=== PATIENT | male | born 1940 | race Caucasian/White ===

== ENCOUNTER → 2024-04-22 | Outpatient (CLI) | payer MEDICARE, SELFPAY ==
[2024-04-22 08:47] LABS: Basophils % (Auto) 1 % (0-2.5); Eosinophils % (Auto) 0 % (0-10); Hematocrit 24.7 % (41.0-53.0); Immature Granulocytes % (Auto) 0 % (0-0); Lymphocytes # (Auto) 1.1 Thou/mm3 (1.0-4.8); Lymphocytes % (Auto) 51 % (10-50); Mean Corpuscular HGB Conc 31.6 g/dl (31.0-37.0); Mean Corpuscular Hemoglobin 33.5 pg (25.0-35.0); Mean Corpuscular Volume 106 fL (80-100); Monocytes # (Auto) 0.4 Thou/mm3 (0.0-0.8); Monocytes % (Auto) 18 % (0-12); Neutrophils # (Auto) 0.7 Thou/mm3 (1.8-7.7); Neutrophils % (Auto) 30 % (37-80); Nucleated Red Blood Cell % 0 /100 WBC (0); Platelet Count 209 Thou/mm3 (140-440); RDW Standard Deviation 89.6 fL (35.1-43.9); Red Blood Count 2.33 Miln/mm3 (4.50-5.90)
[2024-04-22 08:58] LABS: Hemoglobin 7.8 g/dL (13.5-16.0); White Blood Count 2.2 Thou/mm3 (3.8-10.6)
[2024-04-22 09:29] LABS: Albumin, Serum 4.2 gm/dL (3.4-4.8); Anion Gap 6 (7-16); BUN/Creatinine Ratio 15 Ratio (12-20); Blood Urea Nitrogen 27 mg/dL (9-23); Calcium 9.5 mg/dL (8.3-10.6); Calcium (Corrected) 9.5 mg/dL (8.5-10.1); Carbon Dioxide 22.7 mMol/L (20.0-31.0); Chloride 105 mMol/L (98-107); Creatinine (Component) 1.8 mg/dL (0.6-1.3); Glucose 62 mg/dL (74-106); Osmolality,Calculated 271 (275-295); Phosphorous 3.6 mg/dL (2.4-5.1); Potassium 4.9 mMol/L (3.4-5.1); Sodium 134 mMol/L (136-145); eGFR 37 See Note
== END | disposition home or self-care (01) ==
LOC: COPL 07:20
PROVIDERS: PCP Family Medicine; Referring Provider Family Medicine; Visit Provider Family Medicine
DX: D64.9 Anemia, unspecified (principal)
CPT/HCPCS: 36415; 80069; 85025

== ENCOUNTER → 2024-06-08 | Outpatient (CLI) | payer MEDICARE, SELFPAY ==
[2024-06-08 07:44] LABS: Flow Cytometry* See Sep Rpt
[2024-06-08 08:50] LABS: Basophils % (Auto) 1 % (0-2.5); Eosinophils % (Auto) 0 % (0-10); Hematocrit 22.7 % (41.0-53.0); Immature Granulocytes % (Auto) 3 % (0-0); Immature Granulocytes Auto 0.06 Thou/mm3 (0.00-0.00); Lymphocytes # (Auto) 0.9 Thou/mm3 (1.0-4.8); Lymphocytes % (Auto) 40 % (10-50); Mean Corpuscular HGB Conc 31.7 g/dl (31.0-37.0); Mean Corpuscular Hemoglobin 33.6 pg (25.0-35.0); Mean Corpuscular Volume 106 fL (80-100); Monocytes # (Auto) 0.5 Thou/mm3 (0.0-0.8); Monocytes % (Auto) 25 % (0-12); Neutrophils # (Auto) 0.7 Thou/mm3 (1.8-7.7); Neutrophils % (Auto) 31 % (37-80); Nucleated Red Blood Cell # 0.03 Thou/mm3 (0.00-0.00); Nucleated Red Blood Cell % 1 /100 WBC (0); Platelet Count 164 Thou/mm3 (140-440); RDW Standard Deviation 82.1 fL (35.1-43.9); Red Blood Count 2.14 Miln/mm3 (4.50-5.90)
[2024-06-08 09:13] LABS: Hemoglobin 7.2 g/dL (13.5-16.0); White Blood Count 2.1 Thou/mm3 (3.8-10.6)
[2024-06-08 10:02] LABS: Path Review Blood Smear Sent to Pathologist
== END | disposition home or self-care (01) ==
LOC: COPL 07:22
PROVIDERS: PCP Family Medicine; Referring Provider Family Medicine; Visit Provider Specialist
DX: D46.9 Myelodysplastic syndrome, unspecified (principal)
CPT/HCPCS: 36415; 85025

== ENCOUNTER → 2024-07-06 | Outpatient (CLI) | payer MEDICARE, SELFPAY ==
[2024-07-06 08:58] LABS: Alanine Aminotransferase 13 U/L (10-49); Albumin, Serum 4.1 gm/dL (3.4-4.8); Alkaline Phosphatase 101 U/L (46-116); Anion Gap 8 (7-16); Aspartate Amino Transferase 22 U/L (0-34); BUN/Creatinine Ratio 20 Ratio (12-20); Bilirubin,Total 0.8 mg/dL (0.3-1.2); Blood Urea Nitrogen 43 mg/dL (9-23); Calcium 9.3 mg/dL (8.3-10.6); Calcium (Corrected) 9.3 mg/dL (8.5-10.1); Carbon Dioxide 21.2 mMol/L (20.0-31.0); Chloride 108 mMol/L (98-107); Creatinine (Component) 2.2 mg/dL (0.6-1.3); Globulin 4.3 gm/dL (2.3-3.5); Glucose 80 mg/dL (74-106); Osmolality,Calculated 283 (275-295); Potassium 5.2 mMol/L (3.4-5.1); Sodium 137 mMol/L (136-145); Total Protein 8.4 gm/dL (5.7-8.2); eGFR 29 See Note
[2024-07-06 13:16] LABS: Basophils % (Auto) 1 % (0-2.5); Eosinophils % (Auto) 0 % (0-10); Hematocrit 25.9 % (41.0-53.0); Immature Granulocytes % (Auto) 2 % (0-0); Immature Granulocytes Auto 0.04 Thou/mm3 (0.00-0.00); Lymphocytes % (Auto) 36 % (10-50); Mean Corpuscular HGB Conc 31.7 g/dl (31.0-37.0); Mean Corpuscular Hemoglobin 33.1 pg (25.0-35.0); Mean Corpuscular Volume 104 fL (80-100); Monocytes # (Auto) 0.6 Thou/mm3 (0.0-0.8); Monocytes % (Auto) 24 % (0-12); Neutrophils % (Auto) 37 % (37-80); Nucleated Red Blood Cell # 0.03 Thou/mm3 (0.00-0.00); Nucleated Red Blood Cell % 1 /100 WBC (0); RDW Standard Deviation 83.9 fL (35.1-43.9); Red Blood Count 2.48 Miln/mm3 (4.50-5.90)
[2024-07-06 14:22] LABS: Platelet Count 153 Thou/mm3 (140-440)
[2024-07-06 14:25] LABS: White Blood Count 2.6 Thou/mm3 (3.8-10.6)
[2024-07-06 15:18] LABS: Hemoglobin 8.2 g/dL (13.5-16.0)
[2024-07-06 17:56] LABS: Lymphocytes # (Auto) 0.9 Thou/mm3 (1.0-4.8)
== END | disposition home or self-care (01) ==
LOC: COPL 07:20
PROVIDERS: PCP Family Medicine; Referring Provider Family Medicine; Visit Provider Family Medicine
DX: N18.31 Chronic kidney disease, stage 3a (principal); D63.1 Anemia in chronic kidney disease
CPT/HCPCS: 36415; 80053; 85025

== ENCOUNTER 2024-07-12 07:30 | Emergency (ER) | payer MEDICARE, SELFPAY ==
[2024-07-12 07:31] VITALS: BMI 19.0
[2024-07-12 07:45] VITALS: BP 109/52; PULSE 84; RESP 20; TEMP 36.7; O2SAT 95
--- NOTE | 2024-07-12 07:56 | XR_ITS ---
Examination: PA lateral chest 2 views Technique: Upright PA lateral chest 2 views Exam date and time: July 12, 2024 0800 hrs. Comparison 02/14/2024 Indications: Chest pain today Findings: Fairly diffuse right lung pneumonia Moderate right pleural effusion Normal heart size Moderate hyperexpansion Impression: Early diffuse right lung pneumonia
--- NOTE | 2024-07-12 07:56 | PD.EDRME ---
Rapid Medical Screening Exam RME Arrival date/time: 07/12/24 07:30 83-year-old male presents emergency department today complains of shortness of breath Chief Complaint: Shortness of Breath/Dyspnea Vital signs: Vital Signs Temperature 98.0 F 07/12/24 07:45 Pulse Rate 84 07/12/24 07:45 Respiratory Rate 20 07/12/24 07:45 Blood Pressure 109/52 L 07/12/24 07:45 Pulse Oximetry (%) 95 07/12/24 07:45 Oxygen Delivery Method Room Air 07/12/24 07:45
[2024-07-12 08:42] LABS: Basophils % (Auto) 1 % (0-2.5); Eosinophils % (Auto) 0 % (0-10); Hematocrit 23.8 % (41.0-53.0); Immature Granulocytes % (Auto) 4 % (0-0); Immature Granulocytes Auto 0.09 Thou/mm3 (0.00-0.00); Lymphocytes # (Auto) 0.7 Thou/mm3 (1.0-4.8); Lymphocytes % (Auto) 28 % (10-50); Mean Corpuscular HGB Conc 33.2 g/dl (31.0-37.0); Mean Corpuscular Hemoglobin 33.8 pg (25.0-35.0); Mean Corpuscular Volume 102 fL (80-100); Monocytes # (Auto) 0.8 Thou/mm3 (0.0-0.8); Monocytes % (Auto) 30 % (0-12); Neutrophils # (Auto) 0.9 Thou/mm3 (1.8-7.7); Neutrophils % (Auto) 37 % (37-80); Nucleated Red Blood Cell # 0.03 Thou/mm3 (0.00-0.00); Nucleated Red Blood Cell % 1 /100 WBC (0); Platelet Count 131 Thou/mm3 (140-440); RDW Standard Deviation 84.5 fL (35.1-43.9); Red Blood Count 2.34 Miln/mm3 (4.50-5.90)
[2024-07-12 08:44] LABS: Hemoglobin 7.9 g/dL (13.5-16.0); White Blood Count 2.5 Thou/mm3 (3.8-10.6)
[2024-07-12 09:03] LABS: B-Type Natriuretic Peptide 180 pg/mL (0-100)
[2024-07-12 10:24] LABS: Alanine Aminotransferase 14 U/L (10-49); Albumin, Serum 3.9 gm/dL (3.4-4.8); Albumin/Globulin Ratio 0.8 (1.2-2.2); Alkaline Phosphatase 103 U/L (46-116); Anion Gap 9 (7-16); Aspartate Amino Transferase 18 U/L (0-34); BUN/Creatinine Ratio 18 Ratio (12-20); Bilirubin,Total 0.9 mg/dL (0.3-1.2); Blood Urea Nitrogen 35 mg/dL (9-23); Calcium 8.8 mg/dL (8.3-10.6); Calcium (Corrected) 8.9 mg/dL (8.5-10.1); Carbon Dioxide 22.2 mMol/L (20.0-31.0); Chloride 108 mMol/L (98-107); Creatinine (Component) 1.9 mg/dL (0.6-1.3); Estimated Creatinine Clearance 26.5 mL/min (>60); Globulin 4.7 gm/dL (2.3-3.5); Glucose 85 mg/dL (74-106); Osmolality,Calculated 284 (275-295); Potassium 5.3 mMol/L (3.4-5.1); Sodium 139 mMol/L (136-145); Total Protein 8.6 gm/dL (5.7-8.2); Troponin I < 0.020 ng/mL (0.0-0.045); eGFR 35 See Note
[2024-07-12 11:28] VITALS: BP 134/64; PULSE 74; RESP 16; TEMP 36.8; O2SAT 100
--- NOTE | 2024-07-12 11:51 | PD.EDSOB ---
ED SOB =RME/HPI General Chief Complaint: Shortness of Breath/Dyspnea Stated Complaint: SOB X3 DAYS Time Seen by Provider: 07/12/24 11:15 Arrival date/time: 07/12/24 07:30 This is a 83-year-old male that comes in with complaints of shortness of breath for 3 days. Patient denies fever chills. Patient denies any other symptoms. Patient denies any rash. Patient reports history of neuropathy, anemia and myelo dysplastic syndrome, coronary artery disease with a cardiac stent, and a hernia repair in the past appendectomy, neck and back surgery, and a right knee replacement. RME / HPI RME / HPI Narrative: 07/12/24 07:30 83-year-old male presents emergency department today complains of shortness of breath Related Data Home Medications ?Medication ?Instructions ?Recorded ?Confirmed pantoprazole 40 mg tablet,delayed 40 mg PO QDAY 02/07/21 02/10/24 release clopidogrel 75 mg tablet 75 mg PO QDAY 09/22/21 02/10/24 carvedilol 6.25 mg tablet 1 tab PO BID 11/08/21 02/10/24 gabapentin 400 mg capsule 400 cap PO QID 11/10/21 02/10/24 spironolactone 25 mg tablet 25 mg PO QDAY 04/15/22 02/10/24 Previous Rx's ?Medication ?Instructions ?Recorded furosemide 40 mg tablet 40 mg PO BID 30 days #60 tabs 04/16/22 amoxicillin 875 mg-potassium 1 tab PO BID #8 tabs 02/13/24 clavulanate 125 mg tablet azithromycin 250 mg tablet 250 mg PO QDAY #3 tabs 02/13/24 guaifenesin 600 mg tablet, 600 mg PO Q12H PRN cough #14 tabs 02/14/24 extended release 12 hr (Mucinex) ipratropium 0.5 mg-albuterol 3 mg 3 ml inhalation Q6H PRN shortness 02/14/24 (2.5 mg base)/3 mL nebulization of breath or wheezing #180 mL soln levofloxacin 750 mg tablet 750 mg PO QDAY #5 tabs 07/12/24 Allergies Allergy/AdvReac Type Severity Reaction Status Date / Time No Known Allergies Allergy Verified 11/07/21 15:45 Review of Systems Review of Systems Systems Reviewed: All systems reviewed, normal except as documented Past Medical History Past Medical History NEUROLOGIC: Negative Neurological Disorders, Cerebrovascular Accident, Transient Ischemic Attacks (TIA), Dementia, Alzheimer's Disease, Parkinson's Disease, Brain Tumor, Meningitis, Seizures, Epilepsy, Multiple Sclerosis, Cerebral Palsy, Amyotrophic Lateral Sclerosis (ALS/Ksenia Gehrig's), Guillain-[place] Syndrome, Spina Bifida, Paralysis, Peripheral Neuropathy, Castellano's Palsy, Subdural Hematoma, Migraine, Head Trauma, Spinal Cord Injury or Traumatic Brain Injury CARDIAC: Positive Cardiac Disorders, Congestive Heart Failure, Edema and Hypertension; Negative Myocardial Infarction, Cardiac Arrhythmia, Atrial Fibrillation, Angina, Heart Murmur, Coronary Artery Disease, Atherosclerotic Heart Disease, Peripheral Vascular Disease, Hypercholesterolemia, Aneurysm, Congenital Heart Disease, Valvular Heart Disease, Rheumatic Fever, Cardiomyopathy, Pericarditis, Cellulitis, Deep Vein Thrombosis, Hypotension or Varicose Veins RESPIRATORY: Positive Chronic Obstructive Pulmonary Disease (COPD), Asthma, Pneumonia and Smoking; Negative Bronchitis, Emphysema, Pulmonary Fibrosis, Cystic Fibrosis, Tuberculosis, Pulmonary Embolism, Pulmonary Edema or Sleep Apnea GASTROINTESTINAL: Positive Hepatitis; Negative Gastrointestinal Disorders, Cirrhosis, Pancreatitis, Celiac Disease, Gall Bladder Disease, Gastrointestinal Bleed, Esophageal Varices, Arango's Esophagus, Colitis, Ulcerative Colitis, Diverticulitis, Diverticulosis, Ulcer, Colorectal Cancer, Irritable Bowel, Crohn's Disease, Obstructive Bowel, Hiatal Hernia, Hemorrhoids, Gastroesophageal Reflux Disease or Obesity GENITOURINARY: Positive Genitourinary Disorders; Negative Renal Disease, Kidney Stones, Polycystic Kidney Disease, Neurogenic Bladder, Inguinal Hernia, Dialysis, Prostate Cancer or Benign Prostatic Hyperplasia REPRODUCTIVE: Negative Breast Cancer, Fibroids, Genital Herpes, Gonorrhea, Syphilis or Testicular Cancer MUSCULOSKELETAL: Positive Musculoskeletal Disorders and Arthritis; Negative Muscular Dystrophy, Myasthenia Gravis, Marfan's Syndrome, Bone Cancer, Rheumatoid Arthritis, Osteoporosis, Degenerative Disk Disease, Gout, Scoliosis, Carpal Tunnel Syndrome, Fibromyalgia, Fractures, Degenerative Joint Disease, Osteomyelitis or Poliovirus ENT: Positive Cataracts; Negative Glaucoma, Blind, Retinal Detachment, Macular Degeneration, Ear Infection, Deafness, Head Trauma or Eye Prosthesis ENDOCRINE: Negative Endocrine Disorders, Diabetes Mellitus Type 1, Diabetes Mellitus Type 2, Hypoglycemia, Maxwell's Syndrome, Eveleth's Disease, Hyperthyroidism, Hypothyroidism, Parathyroid Disease, Pituitary Disease, Systemic Lupus Erythematosus, Syndrome of Inappropriate Antidiuretic Hormone (SIADH), Adrenal Disease or Graves' Disease HEMATOLOGIC: Positive Blood Disorders and Anemia; Negative Leukemia, Hemophilia, Thalassemia, Sickle Cell Disease or Clotting Problems PSYCHO/SOCIAL: Negative Psychiatric Problems, Schizophrenia, Recreational Drug Use, Bipolar Disorder, Depression, Anxiety, Behavior Problems, Self-Mutilation, Attention Deficit Disorder, Attention Deficit Hyperactivity Disorder, Depression, Post Traumatic Stress Disorder or Eating Disorder OTHER HISTORY: Positive Hospitalization, Falls, Blood Transfusions, Chicken Pox, Mumps and Hepatitis C; Negative Autoimmune Disease, Down Syndrome, Autism, Developmental Delay, Shingles, Blood Transfusion Reaction, Anesthesia Reactions, Organ Transplant, Chemotherapy, Radiation Therapy, Hyperbaric Therapy, MRSA, VRSA, Vancomycin-Resistant Enterococci, Human Immunodeficiency Virus (HIV), Measles, Rubella ([place]ian Measles), Pertussis, Clostridium Difficile, Breast Cancer, Cervical Cancer, Colorectal Cancer, Lung Cancer, Prostate Cancer or Testicular Cancer Family History FAMILY HISTORY: Positive Family Cardiac Disorders and Family Gastrointestinal Problems; Negative Family Psychiatric Problems, Family Respiratory Disorders, Family Cancer, Family Surgery or Family Anesthesia Reaction Surgical History SURGICAL: Positive Eye Surgery, Tonsillectomy and Abdominal Surgery; Negative Cardiac Surgery, Open Heart Surgery, Coronary Artery Bypass Graft, Valve Replacement, Vascular Surgery, Coronary Stent, Cardiac Catheterization, Pacemaker, Angiogram, Auto Implanted Cardiovert Defib, Carotid Endarterectomy, Endocrine Surgery, Thyroidectomy, Ear Surgery, Tympanostomy Tube, Nose Surgery, Oral Surgery, Adenoidectomy, Cochlear Implant, Corneal Transplant, Throat Surgery, Tracheostomy, Gastric Bypass Surgery, Gastrostomy, Bowel Surgery, Nephrectomy, Transurethral Resection, Joint Replacement, Amputation, Open Reduction Internal Fixation, Arthroscopy, Neurologic Surgery, Brain Shunt, Mastectomy, Lumpectomy, Hysterectomy, Tubal Ligation, Section, Vasectomy or Organ Transplant Social History SMOKING STATUS: Former smoker SECOND HAND EXPOSURE: No 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 Exam General General appearance: Present alert and in no apparent distress Head Head exam: Present atraumatic Eye Eye exam: Present normal appearance, PERRL and EOMI ENT ENT exam: Present normal exam, normal oropharynx and mucous membranes moist Neck Neck exam: Present normal inspection, full ROM and trachea midline Chest Chest inspection: Present normal inspection and symmetric chest wall rise Respiratory Respiratory exam: Present normal lung sounds bilaterally Cardiovascular Cardiovascular exam: Present regular rate, normal rhythm and normal heart sounds Abdominal Exam Abdominal exam: Present soft Extremities Exam Extremities exam: Present normal inspection and full ROM Back Exam Back exam: Present normal inspection and full ROM Neurological Exam Neurological exam: Present alert, oriented X3 and CN II-XII intact Psychiatric Psychiatric exam: Present normal affect and normal mood Skin Skin exam: Present warm, dry and other (Pale skin tone) Course Quality Measures none Orders Category Date Time Status EKG (ED ONLY) *Do not use* NOW Care 07/12/24 07:36 Completed EKG (ED Only) Stat Exams 07/12/24 07:36 Ordered XR chest 2V Stat Exams 07/12/24 07:56 Completed BNP [B-Type Natriuretic Peptide] Stat Lab 07/12/24 08:13 Completed CBC Stat Lab 07/12/24 08:13 Completed Comprehensive Metabolic Panel Stat Lab 07/12/24 09:54 Completed Troponin I Stat Lab 07/12/24 09:54 Completed cefTRIAXone [Rocephin] 1,000 mg Med 07/12/24 12:26 Discontinued Lidocaine 1% 20 ml [Xylocaine 1% 20 ML] 2.1 ml IM X1 Vital Signs Vital signs: Vital Signs Temperature 98.0 F 07/12/24 07:45 Pulse Rate 84 07/12/24 07:45 Respiratory Rate 20 07/12/24 07:45 Blood Pressure 109/52 L 07/12/24 07:45 Pulse Oximetry (%) 95 07/12/24 07:45 Oxygen Delivery Method Room Air 07/12/24 07:45 Procedures -ED EKG Interpretation #1: Date of EK07/12/24 Time of EK:44 Rate: 77 Interpretation: Interpreted by me (Sinus rhythm) EKG Impression: No ectopy and Normal QRS Shortness of Breath / Dyspnea MDM Narrative MDM Narrative:: chest x ray: Findings: Fairly diffuse right lung pneumonia Moderate right pleural effusion Normal heart size Moderate hyperexpansion Impression: Early diffuse right lung pneumonia Labs reviewed. Patient's white count is 2.5, hemoglobin is 7.9 and hematocrit is 23.8. Today patient platelet count is 131. Looked at previous labs and values are not much different than previously trending. CMP reviewed sodium 139, potassium 5.3, chloride 108, BUN/creatinine are 35 and 1.9. This is not much different than what patient has currently been trending in the past. Troponin negative I spoke to patient at length about results. Patient's questions answered. i told patient to follow up with primary provider in 1-2 days. Come back to ED if symptoms change or worsen. Patient data External records reviewed:: [facility] previous records Clinical information provided by:: patient Social determinants that could affect healthcare access:: none Patient has the following chronic illnesses:: see hpi How is presenting disease/condition affected by chronic disease/condition?: uneffected by Evaluation data The following diagnostics were reviewed and interpreted by me:: lab results, radiology exam(s) and EKG tracing(s) Lab and/or radiology exams considered but not ordered:: none Interpretation Summary: see note Medications / Prescriptions Medications or Prescriptions considered but not ordered:: none Medication administrations:: Medication Administration History Discontinued Medications Ceftriaxone Sodium 1,000 mg/ (Lidocaine HCl 2.1 ml) 0 mg IM X1 ONE Stop: 07/12/24 12:27 Last Admin: 07/12/24 12:44 Dose: 100 mg Documented By: LEVAR Comments: see mar Consultations Consultation(s) initiated? (list below): No Diagnosis Shortness of Breath Differential Diagnosis: acute exacerbation of chronic obstructive airways disease, congestive heart failure, community acquired pneumonia and asthma with exacerbation Most likely diagnosis given after review of the tests above:: pneumonia Admission Indicated Admission indicated?: not indicated Admission Request Was there a request for admission?: No Disposition Plan Disposition Plan: Discharge Discharge Attestation Discharge Attestation: The patient and all family members were given an opportunity to ask questions and understood the discharge instructions. Discharge instructions specifically effects, indications for sooner follow up or return to the emergency department, and the expected course of current diagnosis. Patient condition: Stable Discharge Plan Plan Patient Disposition: HOME (Self Care) Patient condition on transfer: Stable Prescriptions/Referrals Prescriptions/Med Rec: New levofloxacin 750 mg tablet 750 mg PO QDAY Qty: 5 0RF No Action pantoprazole 40 mg Tablet,Delayed Release (Dr/Ec) 40 mg PO QDAY clopidogrel 75 mg tablet 75 mg PO QDAY Patient Comments: TAKE 1 TABLET BY MOUTH ONCE DAILY carvedilol 6.25 mg tablet 1 tab PO BID Patient Comments: TAKE 1 TABLET BY MOUTH TWICE DAILY WITH FOOD FOR HEART gabapentin 400 mg capsule 400 cap PO QID Patient Comments: TAKE 1 CAPSULE BY MOUTH 4 TIMES DAILY spironolactone 25 mg Tablet 25 mg PO QDAY furosemide 40 mg tablet 40 mg PO BID 30 Days Qty: 60 0RF amoxicillin-pot clavulanate 875-125 mg tablet 1 tab PO BID Qty: 8 0RF azithromycin 250 mg tablet 250 mg PO QDAY Qty: 3 0RF ipratropium-albuterol 0.5 mg-3 mg(2.5 mg base)/3 mL solution for nebulization 3 ml inhalation Q6H PRN (Reason: shortness of breath or wheezing) Qty: 180 0RF guaifenesin [Mucinex] 600 mg tablet extended release 12hr 600 mg PO Q12H PRN (Reason: cough) Qty: 14 0RF Referrals: No Primary/Family,Physician [Primary Care Provider] - In 1 week Problem List Clinical Impression: Pneumonia, Pancytopenia, Chronic kidney disease Patient/Caregiver Discharge Instructions Discharge Activity: activity as tolerated Education Materials: ED Pneumonia (Adult) Additional Instructions: Follow-up with primary provider in 1 to 2 days. Come back to the emergency room if symptoms change or worsen. Print Language: Guyanese Stand Alone Forms: Rani Award Info., Patient Portal Info Letter PA/CODER OPERATOR Supervising Physician PA/CODER OPERATOR Supervising Physician: esvin
[2024-07-12] MEDS: cefTRIAXone 1,000 MG, LIDOCAINE 1% 20 ML 2.1 ML IM (12:44)
[2024-07-12 13:13] VITALS: BP 140/72; PULSE 77; RESP 16; TEMP 36.7; O2SAT 98
== END 2024-07-12 13:14 | disposition home or self-care (01) ==
PROVIDERS: Nurse Practitioner Primary Care; Emergency Provider Emergency Medicine
DX: J18.9 Pneumonia, unspecified organism (principal); D61.818 Other pancytopenia; I25.10 Atherosclerotic heart disease of native coronary artery without angina pectoris
CPT/HCPCS: 36415; 71046; 80053; 83880; 84484; 85025; 93005; 96372; 99283; J0696; J3490

== ENCOUNTER → 2024-07-24 | Outpatient (CLI) | payer MEDICARE, SELFPAY ==
[2024-07-24 08:58] LABS: Basophils % (Auto) 1 % (0-2.5); Eosinophils % (Auto) 0 % (0-10); Hematocrit 22.6 % (41.0-53.0); Immature Granulocytes % (Auto) 2 % (0-0); Immature Granulocytes Auto 0.05 Thou/mm3 (0.00-0.00); Lymphocytes # (Auto) 1.1 Thou/mm3 (1.0-4.8); Lymphocytes % (Auto) 50 % (10-50); Mean Corpuscular HGB Conc 32.3 g/dl (31.0-37.0); Mean Corpuscular Hemoglobin 32.7 pg (25.0-35.0); Mean Corpuscular Volume 101 fL (80-100); Monocytes # (Auto) 0.3 Thou/mm3 (0.0-0.8); Monocytes % (Auto) 16 % (0-12); Neutrophils # (Auto) 0.6 Thou/mm3 (1.8-7.7); Neutrophils % (Auto) 30 % (37-80); Nucleated Red Blood Cell # 0.02 Thou/mm3 (0.00-0.00); Nucleated Red Blood Cell % 1 /100 WBC (0); Platelet Count 186 Thou/mm3 (140-440); RDW Standard Deviation 79.9 fL (35.1-43.9); Red Blood Count 2.23 Miln/mm3 (4.50-5.90)
[2024-07-24 09:15] LABS: Hemoglobin 7.3 g/dL (13.5-16.0); White Blood Count 2.1 Thou/mm3 (3.8-10.6)
== END | disposition home or self-care (01) ==
LOC: COPL 07:50
PROVIDERS: PCP Family Medicine; Referring Provider Specialist; Visit Provider Specialist
DX: D46.9 Myelodysplastic syndrome, unspecified (principal); Z51.11 Encounter for antineoplastic chemotherapy
CPT/HCPCS: 36415; 85025

== ENCOUNTER → 2024-08-24 | Outpatient (CLI) | payer MEDICARE, SELFPAY ==
[2024-08-24 09:27] LABS: Basophils % (Auto) 1 % (0-2.5); Eosinophils % (Auto) 0 % (0-10); Hematocrit 23.9 % (41.0-53.0); Immature Granulocytes % (Auto) 3 % (0-0); Immature Granulocytes Auto 0.05 Thou/mm3 (0.00-0.00); Lymphocytes # (Auto) 0.7 Thou/mm3 (1.0-4.8); Lymphocytes % (Auto) 38 % (10-50); Mean Corpuscular HGB Conc 31.4 g/dl (31.0-37.0); Mean Corpuscular Hemoglobin 32.3 pg (25.0-35.0); Mean Corpuscular Volume 103 fL (80-100); Monocytes # (Auto) 0.4 Thou/mm3 (0.0-0.8); Monocytes % (Auto) 22 % (0-12); Neutrophils # (Auto) 0.7 Thou/mm3 (1.8-7.7); Neutrophils % (Auto) 36 % (37-80); Nucleated Red Blood Cell # 0.02 Thou/mm3 (0.00-0.00); Nucleated Red Blood Cell % 1 /100 WBC (0); Platelet Count 191 Thou/mm3 (140-440); RDW Standard Deviation 78.3 fL (35.1-43.9); Red Blood Count 2.32 Miln/mm3 (4.50-5.90)
[2024-08-24 09:38] LABS: Hemoglobin 7.5 g/dL (13.5-16.0); White Blood Count 1.9 Thou/mm3 (3.8-10.6)
== END | disposition home or self-care (01) ==
LOC: COPL 08:32
PROVIDERS: PCP Family Medicine; Referring Provider Specialist; Visit Provider Specialist
DX: D46.9 Myelodysplastic syndrome, unspecified (principal)
CPT/HCPCS: 36415; 85025

== ENCOUNTER 2024-09-23 09:50 | Emergency (ER) | payer MEDICARE, SELFPAY ==
[2024-09-23] VITALS (15 sets, daily range): BP systolic 89–127; BP diastolic 47–76; PULSE 69–75; RESP 12–20; TEMP 36.3–36.6; O2SAT 5–100; BMI 19.0
--- NOTE | 2024-09-23 10:13 | XR_ITS ---
Examination: PA lateral chest 2 views TECHNIQUE: Upright PA lateral chest 2 views Exam date and time: September 23, 2024 11:40 AM Comparison July 12, 2024 INDICATIONS: Chest pain weakness today FINDINGS: Normal heart size Extensive right lung opacity especially right upper lobe No pulmonary edema Prominent osteopenia Moderate right pleural disease IMPRESSION: Extensive right lung pneumonia, which may be cavitary in the right upper lobe, consider CT chest without intravenous contrast follow-up
--- NOTE | 2024-09-23 10:13 | EKG_ITS ---
[facility] Test Date: 2024-09-23 Pat Name: SAAD MOLINA Department: Room: - Gender: Male Sample [place]yer: : 1940 Requested By: Daron Valentin Order Number: [id number] Reading MD: Daron Valentin Measurements Intervals [place] Rate: 70 P: 27 [place]: 201 QRS: -23 QRSD: 105 T: 10 QT: 396 QTc: 430 Interpretive Statements SINUS RHYTHM WITH MARKED SINUS ARRHYTHMIA BORDERLINE LEFT AXIS DEVIATION [QRS AXIS < -20] Compared to ECG 02/15/2024 11:36:41 Sinus tachycardia no longer present Myocardial infarct finding no longer present /store/[id number].pdf
--- NOTE | 2024-09-23 10:14 | PD.EDRME ---
Rapid Medical Screening Exam [facility] Arrival date/time: 09/23/24 09:50 83-year-old male with a history of hypertension, CHF, cirrhosis, renal insufficiency presents to the emergency room with a chief complaint of shortness of breath, and generalized weakness. On examination the patient is hypotensive. I have greeted and performed a focused initial assessment of this patient. A comprehensive ED assessment and evaluation of the patient, analysis of all test results, and completion of the medical decision making process will be conducted by additional ED providers. Chief Complaint: Shortness of Breath/Dyspnea Vital signs: Vital Signs Temperature 97.8 F 09/23/24 10:11 Pulse Rate 74 09/23/24 10:11 Respiratory Rate 16 09/23/24 10:11 Blood Pressure 89/49 L 09/23/24 10:11 Pulse Oximetry (%) 94 L 09/23/24 10:11 Oxygen Delivery Method Room Air 09/23/24 10:11 Vital signs reviewed by provider: Yes
[2024-09-23 10:39] LABS: Basophils % (Auto) 0 % (0-2.5); Eosinophils % (Auto) 0 % (0-10); Hematocrit 22.1 % (41.0-53.0); Immature Granulocytes % (Auto) 2 % (0-0); Immature Granulocytes Auto 0.08 Thou/mm3 (0.00-0.00); Lymphocytes # (Auto) 0.8 Thou/mm3 (1.0-4.8); Lymphocytes % (Auto) 17 % (10-50); Mean Corpuscular HGB Conc 31.2 g/dl (31.0-37.0); Mean Corpuscular Hemoglobin 32.2 pg (25.0-35.0); Mean Corpuscular Volume 103 fL (80-100); Monocytes # (Auto) 1.3 Thou/mm3 (0.0-0.8); Monocytes % (Auto) 28 % (0-12); Neutrophils # (Auto) 2.4 Thou/mm3 (1.8-7.7); Neutrophils % (Auto) 53 % (37-80); Nucleated Red Blood Cell # 0.02 Thou/mm3 (0.00-0.00); Nucleated Red Blood Cell % 0 /100 WBC (0); Platelet Count 201 Thou/mm3 (140-440); RDW Standard Deviation 83.4 fL (35.1-43.9); Red Blood Count 2.14 Miln/mm3 (4.50-5.90); White Blood Count 4.6 Thou/mm3 (3.8-10.6)
[2024-09-23 10:55] LABS: B-Type Natriuretic Peptide 362 pg/mL (0-100)
--- NOTE | 2024-09-23 10:55 | PC.NURSE ---
PT HERE WITH C/O SHORTNESS OF BREATH FOR 3 WEEKS AND COUGH FOR COUPLE OF DAYS.
[2024-09-23 11:02] LABS: INR 1.3 (0.9-1.3); Partial Thromboplastin Time 30.7 Seconds (22.0-36.0)
[2024-09-23 11:08] LABS: Alanine Aminotransferase 8 U/L (10-49); Albumin, Serum 3.9 gm/dL (3.4-4.8); Albumin/Globulin Ratio 0.9 (1.2-2.2); Alkaline Phosphatase 79 U/L (46-116); Anion Gap 6 (7-16); Aspartate Amino Transferase 17 U/L (0-34); BUN/Creatinine Ratio 17 Ratio (12-20); Bilirubin,Total 1.1 mg/dL (0.3-1.2); Blood Urea Nitrogen 36 mg/dL (9-23); Calcium 8.8 mg/dL (8.3-10.6); Calcium (Corrected) 8.9 mg/dL (8.5-10.1); Carbon Dioxide 21.8 mMol/L (20.0-31.0); Chloride 110 mMol/L (98-107); Creatinine (Component) 2.1 mg/dL (0.6-1.3); Estimated Creatinine Clearance 23.9 mL/min (>60); Globulin 4.5 gm/dL (2.3-3.5); Glucose 90 mg/dL (74-106); LDH (Lactate Dehydrogenase) 163 U/L (120-246); Magnesium 1.8 mg/dL (1.6-2.6); Osmolality,Calculated 283 (275-295); Potassium 5.2 mMol/L (3.4-5.1); Sodium 138 mMol/L (136-145); Total Protein 8.4 gm/dL (5.7-8.2); Troponin I < 0.020 ng/mL (0.0-0.045); eGFR 31 See Note
[2024-09-23 11:16] LABS: Hemoglobin 6.9 g/dL (13.5-16.0)
--- NOTE | 2024-09-23 11:33 | PD.EDSOB ---
ED SOB =RME/HPI General Chief Complaint: Shortness of Breath/Dyspnea Stated Complaint: SOB, COUGH X3 WEEKS Time Seen by Provider: 09/23/24 11:11 Arrival date/time: 09/23/24 09:50 RME / HPI RME / HPI Narrative: 83-year-old male with a history of hypertension, CHF, cirrhosis, renal insufficiency presents to the emergency room with a chief complaint of shortness of breath, and generalized weakness. The patient is having shortness of breath, cough, for the last 3 weeks, severity moderate. Patient denies any fever denies any chest pain on coughing. Patient denies any abdominal pain. Denies any bleeding or vomiting blood. Patient was seen by PCP and was prescribed antibiotic for the same complaints. Patient denies any other complaints. Related Data Home Medications ?Medication ?Instructions ?Recorded ?Confirmed pantoprazole 40 mg tablet,delayed 40 mg PO QDAY 02/07/21 02/10/24 release clopidogrel 75 mg tablet 75 mg PO QDAY 09/22/21 02/10/24 carvedilol 6.25 mg tablet 1 tab PO BID 11/08/21 02/10/24 gabapentin 400 mg capsule 400 cap PO QID 11/10/21 02/10/24 spironolactone 25 mg tablet 25 mg PO QDAY 04/15/22 02/10/24 Previous Rx's ?Medication ?Instructions ?Recorded furosemide 40 mg tablet 40 mg PO BID 30 days #60 tabs 04/16/22 amoxicillin 875 mg-potassium 1 tab PO BID #8 tabs 02/13/24 clavulanate 125 mg tablet azithromycin 250 mg tablet 250 mg PO QDAY #3 tabs 02/13/24 guaifenesin 600 mg tablet, 600 mg PO Q12H PRN cough #14 tabs 02/14/24 extended release 12 hr (Mucinex) ipratropium 0.5 mg-albuterol 3 mg 3 ml inhalation Q6H PRN shortness 02/14/24 (2.5 mg base)/3 mL nebulization of breath or wheezing #180 mL soln levofloxacin 750 mg tablet 750 mg PO QDAY #5 tabs 07/12/24 benzonatate 200 mg capsule 200 mg PO BID PRN cough #20 caps 09/23/24 levofloxacin 750 mg tablet 750 mg PO Q24H 7 days #7 tabs 09/23/24 Allergies Allergy/AdvReac Type Severity Reaction Status Date / Time No Known Allergies Allergy Verified 09/23/24 09:52 Review of Systems Review of Systems Narrative Review of Systems: Review of system reviewed and within normal limits except mentioned in HPI ED Exam Narrative Physical exam: VITAL SIGNS: Reviewed. GENERAL APPEARANCE: Alert and interactive, follows commands, no acute distress, HEAD AND FACE: Non-traumatic. ENT: PERRL, pale conjunctiva, eyelid no trauma, Mucous membrane moist. NECK: Supple, nontender, no nuchal rigidity. CHEST: No tenderness, no crepitus, no paradoxical movement, no retractions. LUNGS: Clear, well ventilated, symmetric, no rales, no wheezing, no ronchi, no stridor, good breath sounds bilaterally. HEART: Regular rate, regular rhythm, no murmur, no gallops. ABDOMEN: Soft, positive bowel sounds, nondistended, no guarding, nontender, no rebound, no masses, RECTAL: Deferred. GENITAL: Deferred. NEUROLOGICAL: Gross motor function intact sensory function intact, Appropriate for age. MUSCULOSKELETAL: low back nontender, full range of motion. EXTREMITIES: Nontender, full range of motion. SKIN: Color pale, dry, no rash, no lacerations, no abrasions, no contusions. LYMPHATICS: Deferred. Course Quality Measures none Orders Category Date Time Status EKG (ED ONLY) *Do not use* NOW Care 09/23/24 10:13 Completed Transfuse,blood/blood products ONCE Care 09/23/24 11:32 Completed EKG (ED Only) Stat Exams 09/23/24 10:13 Draft XR chest 2V Stat Exams 09/23/24 10:13 Completed B-Type Natriuretic Peptide Stat Lab 09/23/24 10:22 Completed CBC Stat Lab 09/23/24 10:22 Completed Comprehensive Metabolic Panel Stat Lab 09/23/24 10:22 Completed LDH (Lactate Dehydrogenase) Stat Lab 09/23/24 10:22 Completed Magnesium Stat Lab 09/23/24 10:22 Completed Partial Thromboplastin Time Stat Lab 09/23/24 10:22 Completed Prothrombin Time with INR Stat Lab 09/23/24 10:22 Completed Troponin I Stat Lab 09/23/24 10:22 Completed Type and Screen Stat Lab 09/23/24 11:46 Completed prbc [Red Blood Cells] Stat Lab 09/23/24 11:46 Completed Azithromycin Inj [Zithromax Inj] 500 mg Med 09/23/24 13:34 Discontinued Sodium Chloride 0.9% 250 ml [Ns] 250 ml IV X1 Benzonatate [Tessalon] Med 09/23/24 14:27 Discontinued 200 mg PO X1 ONE cefTRIAXone/D5w 1gm IV premix [Rocephin/D5w 1gm IV Med 09/23/24 13:34 Discontinued premix] 1 gm in 50 ml IV X1 Vital Signs Vital signs: Vital Signs Temperature 97.8 F 09/23/24 10:11 Pulse Rate 74 09/23/24 10:11 Respiratory Rate 16 09/23/24 10:11 Blood Pressure 89/49 L 09/23/24 10:11 Pulse Oximetry (%) 94 L 09/23/24 10:11 Oxygen Delivery Method Room Air 09/23/24 10:11 Shortness of Breath / Dyspnea MDM Narrative MDM Narrative:: 83-year-old male with a history of hypertension, CHF, cirrhosis, renal insufficiency presents to the emergency room with a chief complaint of shortness of breath, and generalized weakness. The patient is having shortness of breath, cough, for the last 3 weeks, severity moderate. Patient denies any fever denies any chest pain on coughing. Patient denies any abdominal pain. Denies any bleeding or vomiting blood. Patient was seen by PCP and was prescribed antibiotic for the same complaints. Patient denies any other complaints. Chest x-ray showed pneumonia. No leukocytosis noted. Patient was noted to be satting 97% on room air patient is febrile. Patient received 2 units of packed RBC and was given IV ceftriaxone and Zithromax. Patient told me that she does not want to be admitted she wanted to go home and asking if I can give him Levaquin p.o. instead. Patient stable for discharge home. Patient data External records reviewed:: None Clinical information provided by:: patient and family Social determinants that could affect healthcare access:: none Patient has the following chronic illnesses:: None How is presenting disease/condition affected by chronic disease/condition?: exacerbated by Evaluation data The following diagnostics were reviewed and interpreted by me:: lab results, radiology exam(s) and EKG tracing(s) Lab and/or radiology exams considered but not ordered:: None Interpretation Summary: EKG showed normal sinus rhythm, ventricular rate of [address] segment ovation depressions. The rest of the lab results and x-ray see MDM Medications / Prescriptions Medications or Prescriptions considered but not ordered:: None Medication administrations:: Medication Administration History Discontinued Medications Benzonatate (Benzonatate 100 Mg Capsule) 200 mg PO X1 ONE; Protocol Stop: 09/23/24 14:28 Last Admin: 09/23/24 15:31 Dose: 200 mg Documented By: Ceftriaxone Sodium/Dextrose (Rocephin/D5w 1gm Iv Premix) 1 gm in 50 mls @ 100 mls/hr IV X1 ONE Stop: 09/23/24 14:03 Last Infusion: 09/23/24 14:18 Dose: Infused Documented By: [facility] Admin: 09/23/24 13:53 Dose: 100 mls/hr Documented By: [facility] Azithromycin 500 mg/ Sodium (Chloride) 250 mls @ 250 mls/hr IV X1 ONE Stop: 09/23/24 14:33 Last Infusion: 09/23/24 15:27 Dose: Infused Documented By: [facility] Admin: 09/23/24 14:23 Dose: 250 mls/hr Documented By: [facility] Comments: MED BOTTLE WOULD NOT SCAN. CONFIRMED MED WITH N/P Ceftriaxone IV and Zithromax IV Consultations Consultation(s) initiated? (list below): No Diagnosis Shortness of Breath Differential Diagnosis: acute exacerbation of chronic obstructive airways disease, congestive heart failure and community acquired pneumonia Most likely diagnosis given after review of the tests above:: Anemia, community-acquired pneumonia Admission Indicated Admission indicated?: not indicated Admission Request Was there a request for admission?: No Disposition Plan Disposition Plan: Discharge Discharge Attestation Discharge Attestation: The patient and all family members were given an opportunity to ask questions and understood the discharge instructions. Discharge instructions specifically effects, indications for sooner follow up or return to the emergency department, and the expected course of current diagnosis. Patient condition: Stable Discharge Plan Plan Patient Disposition: HOME (Self Care) Disposition Comment: Stable Prescriptions/Referrals Prescriptions/Med Rec: New levofloxacin 750 mg tablet 750 mg PO Q24H 7 Days Qty: 7 0RF benzonatate 200 mg capsule 200 mg PO BID PRN (Reason: cough) Qty: 20 0RF No Action pantoprazole 40 mg Tablet,Delayed Release (Dr/Ec) 40 mg PO QDAY clopidogrel 75 mg tablet 75 mg PO QDAY Patient Comments: TAKE 1 TABLET BY MOUTH ONCE DAILY carvedilol 6.25 mg tablet 1 tab PO BID Patient Comments: TAKE 1 TABLET BY MOUTH TWICE DAILY WITH FOOD FOR HEART gabapentin 400 mg capsule 400 cap PO QID Patient Comments: TAKE 1 CAPSULE BY MOUTH 4 TIMES DAILY spironolactone 25 mg Tablet 25 mg PO QDAY furosemide 40 mg tablet 40 mg PO BID 30 Days Qty: 60 0RF levofloxacin 750 mg tablet 750 mg PO QDAY Qty: 5 0RF amoxicillin-pot clavulanate 875-125 mg tablet 1 tab PO BID Qty: 8 0RF azithromycin 250 mg tablet 250 mg PO QDAY Qty: 3 0RF ipratropium-albuterol 0.5 mg-3 mg(2.5 mg base)/3 mL solution for nebulization 3 ml inhalation Q6H PRN (Reason: shortness of breath or wheezing) Qty: 180 0RF guaifenesin [Mucinex] 600 mg tablet extended release 12hr 600 mg PO Q12H PRN (Reason: cough) Qty: 14 0RF Referrals: Christophe Royal [Primary Care Provider] - In 1 week Problem List Clinical Impression: Pneumonia, Anemia Patient/Caregiver Discharge Instructions Discharge Activity: activity as tolerated Education Materials: Anemia Additional Instructions: Thank you for the opportunity for serving you today. You are stable for discharged . You are advised to: Follow-up with your PCP in 1 to 2 days Return to ED for worsening of symptoms Print Language: Estonian Stand Alone Forms: Rani Award Info., Patient Portal Info Letter
--- NOTE | 2024-09-23 11:58 | PC.NURSE ---
CONSENT FOR BLOOD TRANSFUSION SIGNED BY PT
--- NOTE | 2024-09-23 12:07 | PC.NURSE ---
PT AWARE OF NEED FOR URINE AND STATES I CAN'T GO YET
[2024-09-23] MEDS: cefTRIAXone/D5w 1gm IV premix 1 GM/50 ML BAG IV (13:53)
[2024-09-23] MEDS: AZITHROMYCIN INJ 500 MG in SODIUM CHLORIDE 0.9% 250 ML 250 ML 250 MG IV (14:23)
--- NOTE | 2024-09-23 14:28 | PC.NURSE ---
pt asking for cough med and order received
--- NOTE | 2024-09-23 14:28 | PC.NURSE ---
VS'S SEE TAR
--- NOTE | 2024-09-23 14:39 | PC.NURSE ---
PHARMACY CALLED FOR LEANNA
[2024-09-23] MEDS: BENZONATATE 100 MG CAPSULE 200 MG PO (15:31)
--- NOTE | 2024-09-23 16:27 | PC.NURSE ---
started second bag of prbc
== END 2024-09-23 19:19 | disposition home or self-care (01) ==
PROVIDERS: Nurse Practitioner Family; Emergency Provider Emergency Medicine; PCP Internal Medicine
DX: J18.9 Pneumonia, unspecified organism (principal); D64.9 Anemia, unspecified; I11.0 Hypertensive heart disease with heart failure; I50.9 Heart failure, unspecified; K74.60 Unspecified cirrhosis of liver
CPT/HCPCS: 36415; 36430; 71046; 80053; 81001; 83615; 83735; 83880; 84484; 85025; 85610; 85730; 86850; 86900; 86901; 86923; 93005; 96365; 96367; 99285; J0456; J0696; J7050; P9016; A9270

== ENCOUNTER → 2024-10-15 | Outpatient (CLI) | payer MEDICARE, SELFPAY ==
[2024-10-15 11:01] LABS: Basophils % (Auto) 1 % (0-2.5); Eosinophils % (Auto) 2 % (0-10); Hematocrit 24.7 % (41.0-53.0); Immature Granulocytes % (Auto) 2 % (0-0); Immature Granulocytes Auto 0.04 Thou/mm3 (0.00-0.00); Lymphocytes % (Auto) 43 % (10-50); Mean Corpuscular HGB Conc 32.4 g/dl (31.0-37.0); Mean Corpuscular Hemoglobin 29.2 pg (25.0-35.0); Mean Corpuscular Volume 90 fL (80-100); Monocytes # (Auto) 0.4 Thou/mm3 (0.0-0.8); Monocytes % (Auto) 18 % (0-12); Neutrophils # (Auto) 0.8 Thou/mm3 (1.8-7.7); Neutrophils % (Auto) 34 % (37-80); Nucleated Red Blood Cell % 0 /100 WBC (0); Platelet Count 167 Thou/mm3 (140-440); RDW Standard Deviation 76.9 fL (35.1-43.9); Red Blood Count 2.74 Miln/mm3 (4.50-5.90)
[2024-10-15 11:38] LABS: White Blood Count 2.4 Thou/mm3 (3.8-10.6)
[2024-10-15 11:39] LABS: Albumin, Serum 4.1 gm/dL (3.4-4.8); Anion Gap 7 (7-16); BUN/Creatinine Ratio 18 Ratio (12-20); Blood Urea Nitrogen 28 mg/dL (9-23); Calcium 8.9 mg/dL (8.3-10.6); Calcium (Corrected) 8.9 mg/dL (8.5-10.1); Carbon Dioxide 22.5 mMol/L (20.0-31.0); Chloride 104 mMol/L (98-107); Creatinine (Component) 1.6 mg/dL (0.6-1.3); Glucose 90 mg/dL (74-106); Osmolality,Calculated 271 (275-295); Potassium 5.1 mMol/L (3.4-5.1); Sodium 133 mMol/L (136-145); eGFR 42 See Note
== END | disposition home or self-care (01) ==
LOC: COPL 10:00
PROVIDERS: PCP Family Medicine; Referring Provider Family Medicine; Visit Provider Family Medicine
DX: D64.9 Anemia, unspecified (principal)
CPT/HCPCS: 36415; 80069; 85025

== ENCOUNTER 2024-11-19 11:53 | Emergency (ER) | payer MEDICARE, SELFPAY ==
[2024-11-19] VITALS (13 sets, daily range): BP systolic 103–157; BP diastolic 54–80; PULSE 60–79; RESP 15–24; TEMP 36.4–37.2; O2SAT 95–100; BMI 19.0
--- NOTE | 2024-11-19 12:48 | EKG_ITS ---
[facility] Test Date: 2024-11-19 Pat Name: SAAD MOLINA Department: Room: - Gender: Male Speech Correction Consultant: : 1940 Requested By: Wilbert Arthur Order Number: [id number] Reading MD: Wilbert Arthur Measurements Intervals [place] Rate: 72 P: [place]: QRS: -6 QRSD: 99 T: 55 QT: 366 QTc: 401 Interpretive Statements ATRIAL FIBRILLATION ABNORMAL RHYTHM ECG Compared to ECG 09/23/2024 10:17:19 Sinus rhythm no longer present Sinus arrhythmia no longer present /store/S0/[id number]/[id number].pdf
--- NOTE | 2024-11-19 12:48 | XR_ITS ---
Examination: PA lateral chest 2 views TECHNIQUE: Upright PA lateral chest 2 views Date and time: November 19, 2024 1313 hours Comparison September 23, 2024 INDICATIONS: Shortness of breath beginning 2 months ago. FINDINGS: Moderate hyperexpansion Parenchymal disease diffusely in the right lung and at the left base Normal heart size Blunting the costophrenic angles IMPRESSION: Extensive parenchymal disease diffusely in the right lung and at the left base most consistent with pneumonia, clinical correlation advised
--- NOTE | 2024-11-19 12:50 | PD.EDRME ---
Rapid Medical Screening Exam RME Arrival date/time: 11/19/24 11:53 Chief Complaint: Shortness of Breath/Dyspnea Time Seen by Provider: 11/19/24 12:04 Vital signs: Vital Signs Temperature 98.9 F 11/19/24 12:20 Pulse Rate 79 11/19/24 12:20 Respiratory Rate 16 11/19/24 12:20 Blood Pressure 103/54 L 11/19/24 12:20 Pulse Oximetry (%) 95 11/19/24 12:20 Oxygen Delivery Method Room Air 11/19/24 12:20 Vital signs reviewed by provider: Yes RME Narrative: 83-year-old male with past medical history of cirrhosis, renal insufficiency, chronic anemia presents for evaluation of worsening shortness of breath x 3 weeks. Patient endorses intermittent dry cough and worsening weakness. Patient was recently on Levaquin for bilateral pneumonia.
[2024-11-19 13:19] LABS: Basophils % (Auto) 1 % (0-2.5); Eosinophils % (Auto) 1 % (0-10); Immature Granulocytes % (Auto) 5 % (0-0); Lymphocytes # (Auto) 0.8 Thou/mm3 (1.0-4.8); Lymphocytes % (Auto) 40 % (10-50); Mean Corpuscular HGB Conc 33.2 g/dl (31.0-37.0); Mean Corpuscular Hemoglobin 30.7 pg (25.0-35.0); Mean Corpuscular Volume 93 fL (80-100); Monocytes # (Auto) 0.4 Thou/mm3 (0.0-0.8); Monocytes % (Auto) 17 % (0-12); Neutrophils # (Auto) 0.8 Thou/mm3 (1.8-7.7); Neutrophils % (Auto) 37 % (37-80); Nucleated Red Blood Cell # 0.04 Thou/mm3 (0.00-0.00); Nucleated Red Blood Cell % 2 /100 WBC (0); Platelet Count 189 Thou/mm3 (140-440); RDW Standard Deviation 87.9 fL (35.1-43.9); Red Blood Count 2.12 Miln/mm3 (4.50-5.90)
[2024-11-19 13:24] LABS: Hemoglobin 6.5 g/dL (13.5-16.0); White Blood Count 2.1 Thou/mm3 (3.8-10.6)
[2024-11-19 13:25] LABS: Hematocrit 19.6 % (41.0-53.0)
[2024-11-19 13:31] LABS: INR 1.1 (0.9-1.3); Partial Thromboplastin Time 27.1 Seconds (22.0-36.0); Prothrombin Time 12.3 Seconds (9.0-12.2)
[2024-11-19 13:33] LABS: B-Type Natriuretic Peptide 259 pg/mL (0-100)
[2024-11-19 13:36] LABS: Alanine Aminotransferase 10 U/L (10-49); Albumin, Serum 4.1 gm/dL (3.4-4.8); Alkaline Phosphatase 79 U/L (46-116); Anion Gap 8 (7-16); BUN/Creatinine Ratio 20 Ratio (12-20); Bilirubin,Total 0.4 mg/dL (0.3-1.2); Blood Urea Nitrogen 39 mg/dL (9-23); Carbon Dioxide 20.2 mMol/L (20.0-31.0); Chloride 110 mMol/L (98-107); Estimated Creatinine Clearance 25.1 mL/min (>60); Globulin 4.1 gm/dL (2.3-3.5); Glucose 104 mg/dL (74-106); LDH (Lactate Dehydrogenase) 150 U/L (120-246); Magnesium 1.8 mg/dL (1.6-2.6); Osmolality,Calculated 285 (275-295); Potassium 5.7 mMol/L (3.4-5.1); Sodium 138 mMol/L (136-145); Total Protein 8.2 gm/dL (5.7-8.2); Troponin I < 0.020 ng/mL (0.0-0.045); eGFR 33 See Note
--- NOTE | 2024-11-19 14:14 | EDNOTE_ITS ---
<Statement entered by Shameka Moore MD - 11/20/24 18:31> As co-signing physician, I was present and available for consult prn. I concur with the plan and care as documented by the midlevel provider. ED SOB =RME/HPI General Chief Complaint: Shortness of Breath/Dyspnea Stated Complaint: SOB GETTING WORSE Time Seen by Provider: 11/19/24 12:04 Arrival date/time: 11/19/24 11:53 RME / HPI RME / HPI Narrative: 83-year-old male with past medical history of cirrhosis, renal insufficiency, chronic anemia presents for evaluation of worsening shortness of breath x 3 weeks. Associated with nonproductive cough. Patient endorses intermittent dry cough and worsening weakness. Patient was recently on Levaquin for bilateral pneumonia. Patient denies any chest pain or coughing. Denies any fever denies any other complaints patient also denies any blood in the stool or black tarry stool. No vomiting blood also. Related Data Home Medications ?Medication ?Instructions ?Recorded ?Confirmed pantoprazole 40 mg tablet,delayed 40 mg PO QDAY 02/10/24 release clopidogrel 75 mg tablet 75 mg PO QDAY 09/22/2102/09 carvedilol 6.25 mg tablet 1 tab PO BID 11/08/21 gabapentin 400 mg capsule 400 cap PO QID 11/10/2108/03 spironolactone 25 mg tablet 25 mg PO QDAY 04/15/2208/03 Previous Rx's ?Medication ?Instructions ?Recorded furosemide 40 mg tablet 40 mg PO BID 30 days #60 tab s 04/16/22 amoxicillin 875 mg-potassium 1 tab PO BID #8 tabs 10/31 clavulanate 125 mg tablet azithromycin 250 mg tablet 250 mg PO QDAY #3 tabs 10/31 guaifenesin 600 mg tablet, 600 mg PO Q12H PRN cough #1 4 tabs 02/14/24 extended release 12 hr (Mucinex) ipratropium 0.5 mg-albuterol 3 mg 3 ml inhalation Q6H PRN shortness 02/14/24 (2.5 mg base)/3 mL nebulization of breath or wheezing #180 mL soln levofloxacin 750 mg tablet 750 mg PO QDAY #5 tabs 08/04 benzonatate 200 mg capsule 200 mg PO BID PRN cough #20 caps 09/23/24 amoxicillin 875 mg-potassium 1 tab PO BID #14 tabs 06/03 clavulanate 125 mg tablet doxycycline hyclate 100 mg capsule 100 mg PO BID #14 c aps 11/19/24 Allergies Allergy/AdvReac Type Severity Reaction Status Date / Time No Known Allergies Allergy Verified 11/19/24 11:56 Review of Systems Review of Systems Narrative Review of Systems: Review of system reviewed and within normal limits except mentioned in HPI ED Exam Narrative Physical exam: VITAL SIGNS: Reviewed. GENERAL APPEARANCE: Alert and interactive, follows commands, no acute distress, HEAD AND FACE: Non-traumatic. ENT: PERRL, pale conjunctiva, eyelid no trauma, Mucous membrane moist. NECK: Supple, nontender, no nuchal rigidity. CHEST: No tenderness, no crepitus, no paradoxical movement, no retractions. LUNGS: Clear, well ventilated, symmetric, no rales, no wheezing, no ronchi, no stridor, good breath sounds bilaterally. HEART: Regular rate, regular rhythm, no murmur, no gallops. ABDOMEN: Soft, positive bowel sounds, nondistended, no guarding, nontender, no rebound, no masses, RECTAL: Deferred. GENITAL: Deferred. NEUROLOGICAL: Gross motor function intact sensory function intact, Appropriate for age. MUSCULOSKELETAL: low back nontender, full range of motion. EXTREMITIES: Nontender, full range of motion. SKIN: Color pale, dry, no rash, no lacerations, no abrasions, no contusions. LYMPHATICS: Deferred. Course Quality Measures none Orders Category Date Time Status Bedside COVID-19 Antigen Test NOW Care 11/19/24 12:48 Active Bedside Influenza A&B Antigen Test NOW Care 11/19/24 12:49 Completed EKG (ED ONLY) *Do not use* NOW Care 11/19/24 12:48 Completed Insert IV NOW Care 11/19/24 12:49 Active Transfuse,blood/blood products ONCE Care 11/19/24 14:11 Active EKG (ED Only) Stat Exams 11/19/24 12:48 Draft XR chest 2V Stat Exams 11/19/24 12:48 Completed B-Type Natriuretic Peptide Stat Lab 11/19/24 13:10 Completed CBC Stat Lab 11/19/24 13:10 Completed Comprehensive Metabolic Panel Stat Lab 11/19/24 13:10 Completed LDH (Lactate Dehydrogenase) Stat Lab 11/19/24 13:10 Completed Magnesium Stat Lab 11/19/24 13:10 Completed Partial Thromboplastin Time Stat Lab 11/19/24 13:10 Completed Prothrombin Time with INR Stat Lab 11/19/24 13:10 Completed Troponin I Stat Lab 11/19/24 13:10 Completed Type and Screen Stat Lab 11/19/24 14:00 Completed prbc [Red Blood Cells] Stat Lab 11/19/24 14:00 Completed ALBUTEROL RT 0.5ml [Proventil Rt 0.5ml] Med 11/19/24 14:18 Discontinued 5 mg INH X1 ONE Amoxicillin/Pot Clav [Augmentin] Med 11/19/24 14:11 Discontinued 500 mg PO X1 ONE Doxycycline [Vibramycin] Med 11/19/24 14:11 Discontinued 100 mg PO X1 ONE Sod Polystyrene Sulfon Susp [Kayexalate Susp] Med 11/19/24 14:18 Discontinued 30 gm PO X1 ONE Sodium Chloride Rt Trudy 0.9% [NS Rt Trudy 0.9%] Med 11/19/24 14:18 Active 3 ml INH PRN PRN Vital Signs Vital signs: Vital Signs Temperature 98.9 F 11/19/24 12:20 Pulse Rate 79 11/19/24 12:20 Respiratory Rate 16 11/19/24 12:20 Blood Pressure 103/54 L 11/19/24 12:20 Pulse Oximetry (%) 95 11/19/24 12:20 Oxygen Delivery Method Room Air 11/19/24 12:20 Shortness of Breath / Dyspnea MDM Narrative MDM Narrative:: 83-year-old male with past medical history of cirrhosis, renal insufficiency, chronic anemia presents for evaluation of worsening shortness of breath x 3 weeks. Associated with nonproductive cough. Patient endorses intermittent dry cough and worsening weakness. Patient was recently on Levaquin for bilateral pneumonia. Patient denies any chest pain or coughing. Denies any fever denies any other complaints patient also denies any blood in the stool or black tarry stool. No vomiting blood also. Patient's hemoglobin today was noted to be 6.5 hematocrit of 19.6. Potassium of 5.7 creatinine of 2.0. Chest x-ray showed Extensive parenchymal disease diffusely in the right lung and at the left base most consistent with pneumonia, clinical correlation advised EKG showed atrial fibrillation, ventricular rate of 72 bpm, nonspecific elevation depression noted. Was given Augmentin, doxycycline, Kayexalate, and albuterol breathing treatment Patient was also given 2 units of packed RBC. Patient data External records reviewed:: None Clinical information provided by:: patient Social determinants that could affect healthcare access:: none Patient has the following chronic illnesses:: History of anemia, history of pulmonary parenchymal disease. How is presenting disease/condition affected by chronic disease/condition?: exacerbated by Evaluation data The following diagnostics were reviewed and interpreted by me:: lab results, radiology exam(s) and EKG tracing(s) Lab and/or radiology exams considered but not ordered:: None Interpretation Summary: See results MDM Medications / Prescriptions Medications or Prescriptions considered but not ordered:: None Medication administrations:: Medication Administration History Sodium Chloride (Sodium Chloride Rt Trudy 0.9% 3 Ml Nebu) 3 ml INH PRN PRN PRN Reason: SOLN Stop: 12/19/24 14:17 Last Admin: 11/19/24 14:51 Dose: 3 ml Documented By: GINI Discontinued Medications Albuterol (Albuterol Rt 2.5 Mg/0.5 Ml Nebu) 5 mg INH X1 ONE Stop: 11/19/24 14:19 Last Admin: 11/19/24 14:52 Dose: 5 mg Documented By: GINI Amoxicillin/Clavulanate Potassium (Amoxicillin/Pot Clav 500 Mg Tablet) 500 mg PO X1 ONE Stop: 11/19/24 14:12 Last Admin: 11/19/24 14:21 Dose: 500 mg Documented By: DB Doxycycline Hyclate (Doxycycline 100 Mg Tablet) 100 mg PO X1 ONE Stop: 11/19/24 14:12 Last Admin: 11/19/24 14:21 Dose: 100 mg Documented By: STEPAN Comments: SCANNER NOT WORKING, UNABLE TO SCAN MED Sodium Polystyrene Sulfonate (Sod Polystyrene Sulfon Susp 15 Gm/60 Ml Btl) 30 gm PO X1 ONE Stop: 11/19/24 14:19 Last Admin: 11/19/24 14:39 Dose: 30 gm Documented By: GINI(2) Kayexalate, doxycycline Augmentin, albuterol for hyperkalemia and 2 units of packed RBC Consultations Consultation(s) initiated? (list below): No Diagnosis Shortness of Breath Differential Diagnosis: acute exacerbation of chronic obstructive airways disease and community acquired pneumonia Most likely diagnosis given after review of the tests above:: Pneumonia, anemia Admission Indicated Admission indicated?: not indicated Admission Request Was there a request for admission?: No Disposition Plan Disposition Plan: Discharge Discharge Attestation Discharge Attestation: The patient and all family members were given an opportunity to ask questions and understood the discharge instructions. Discharge instructions specifically effects, indications for sooner follow up or return to the emergency department, and the expected course of current diagnosis. Patient condition: Stable Discharge Plan Plan Patient Disposition: HOME (Self Care) Discharge Disposition comment: Stable Prescriptions/Referrals Prescriptions/Med Rec: New amoxicillin-pot clavulanate 875-125 mg tablet 1 tab PO BID Qty: 14 0RF doxycycline hyclate 100 mg capsule 100 mg PO BID Qty: 14 0RF No Action pantoprazole 40 mg Tablet,Delayed Release (Dr/Ec) 40 mg PO QDAY clopidogrel 75 mg tablet 75 mg PO QDAY Patient Comments: TAKE 1 TABLET BY MOUTH ONCE DAILY carvedilol 6.25 mg tablet 1 tab PO BID Patient Comments: TAKE 1 TABLET BY MOUTH TWICE DAILY WITH FOOD FOR HEART gabapentin 400 mg capsule 400 cap PO QID Patient Comments: TAKE 1 CAPSULE BY MOUTH 4 TIMES DAILY spironolactone 25 mg Tablet 25 mg PO QDAY furosemide 40 mg tablet 40 mg PO BID 30 Days Qty: 60 0RF levofloxacin 750 mg tablet 750 mg PO QDAY Qty: 5 0RF amoxicillin-pot clavulanate 875-125 mg tablet 1 tab PO BID Qty: 8 0RF azithromycin 250 mg tablet 250 mg PO QDAY Qty: 3 0RF ipratropium-albuterol 0.5 mg-3 mg(2.5 mg base)/3 mL solution for nebulization 3 ml inhalation Q6H PRN (Reason: shortness of breath or wheezing) Qty: 180 0RF guaifenesin [Mucinex] 600 mg tablet extended release 12hr 600 mg PO Q12H PRN (Reason: cough) Qty: 14 0RF benzonatate 200 mg capsule 200 mg PO BID PRN (Reason: cough) Qty: 20 0RF Referrals: Afsaneh Grey MD [Primary Care Provider] - In 1 week Problem List Clinical Impression: Pneumonia, Anemia Patient/Caregiver Discharge Instructions Discharge Activity: activity as tolerated Education Materials: Anemia, When You Have Pneumonia Additional Instructions: Thank you for the opportunity for serving you today. You are stable for discharged . You are advised to: Follow-up with your PCP in 1 to 2 days Return to ED for worsening of symptoms Print Language: Mohawk Stand Alone Forms: Rani Award Info., Patient Portal Info Letter PA/PATSY Supervising Physician PA/DIRECTOR OF INSTRUCTIONAL TECHNOLOGY Supervising Physician: MD Sudha
[2024-11-19] MEDS: DOXYCYCLINE 100 MG TABLET PO (14:21)
[2024-11-19] MEDS: AMOXICILLIN/POT CLAV 500 MG TABLET PO (14:21)
[2024-11-19] MEDS: SOD POLYSTYRENE SULFON SUSP 15 GM/60 ML BTL 30 GM PO (14:39)
[2024-11-19] MEDS: SODIUM CHLORIDE RT SOL 0.9% 3 ML NEBU INH (14:51)
[2024-11-19] MEDS: ALBUTEROL RT 2.5 MG/0.5 ML NEBU 5 MG INH (14:52)
== END 2024-11-19 20:32 | disposition home or self-care (01) ==
PROVIDERS: Physician Assistant; Emergency Provider Emergency Medicine; PCP Family Medicine; Referring Provider Emergency Medicine
DX: J18.9 Pneumonia, unspecified organism (principal); D64.9 Anemia, unspecified; I48.91 Unspecified atrial fibrillation; K74.60 Unspecified cirrhosis of liver
CPT/HCPCS: 36415; 36430; 71046; 80053; 80307; 81001; 83615; 83735; 83880; 84484; 85025; 85610; 85730; 86850; 86900; 86901; 86923; 87400; 87811; 93005; 94640; 99285; P9016; A9270

== ENCOUNTER → 2024-11-23 | Outpatient (CLI) | payer MEDICARE, SELFPAY ==
[2024-11-23 09:29] LABS: Basophils % (Auto) 1 % (0-2.5); Eosinophils % (Auto) 1 % (0-10); Hematocrit 28.6 % (41.0-53.0); Hemoglobin 9.3 g/dL (13.5-16.0); Immature Granulocytes % (Auto) 2 % (0-0); Immature Granulocytes Auto 0.05 Thou/mm3 (0.00-0.00); Lymphocytes # (Auto) 0.7 Thou/mm3 (1.0-4.8); Lymphocytes % (Auto) 35 % (10-50); Mean Corpuscular HGB Conc 32.5 g/dl (31.0-37.0); Mean Corpuscular Hemoglobin 31.1 pg (25.0-35.0); Mean Corpuscular Volume 96 fL (80-100); Monocytes # (Auto) 0.5 Thou/mm3 (0.0-0.8); Monocytes % (Auto) 24 % (0-12); Neutrophils # (Auto) 0.8 Thou/mm3 (1.8-7.7); Neutrophils % (Auto) 37 % (37-80); Nucleated Red Blood Cell % 0 /100 WBC (0); Platelet Count 156 Thou/mm3 (140-440); RDW Standard Deviation 75.7 fL (35.1-43.9); Red Blood Count 2.99 Miln/mm3 (4.50-5.90)
[2024-11-23 09:41] LABS: White Blood Count 2.1 Thou/mm3 (3.8-10.6)
[2024-11-23 10:00] LABS: Anion Gap 10 (7-16); BUN/Creatinine Ratio 19 Ratio (12-20); Blood Urea Nitrogen 28 mg/dL (9-23); Carbon Dioxide 21.4 mMol/L (20.0-31.0); Chloride 108 mMol/L (98-107); Creatinine (Component) 1.5 mg/dL (0.6-1.3); Glucose 84 mg/dL (74-106); Osmolality,Calculated 282 (275-295); Phosphorous 3.3 mg/dL (2.4-5.1); Potassium 5.4 mMol/L (3.4-5.1); Sodium 139 mMol/L (136-145); eGFR 46 See Note
== END | disposition home or self-care (01) ==
PROVIDERS: PCP Internal Medicine; Referring Provider Family Medicine; Visit Provider Family Medicine
DX: N18.31 Chronic kidney disease, stage 3a (principal); D63.1 Anemia in chronic kidney disease
CPT/HCPCS: 36415; 80069; 85025

== ENCOUNTER 2024-12-03 12:11 | Inpatient (IN) | payer MEDICARE, SELFPAY ==
[2024-12-03] VITALS (10 sets, daily range): BP systolic 114–167; BP diastolic 64–83; PULSE 71–78; RESP 14–22; TEMP 36.4–36.9; O2SAT 96–100; BMI 19.0
--- NOTE | 2024-12-03 13:02 | XR_ITS ---
Examination: PA chest single view TECHNIQUE: Upright PA chest single view Date and time: 12/03/2024, 1311 hours Comparison November 19, 2024 INDICATIONS: Shortness of breath today FINDINGS: Chronic lung disease pattern Pleural parenchymal disease at the lung bases. Parenchymal disease also in the right upper lobe Normal heart size Prominent osteopenia IMPRESSION: Right upper lobe and bibasilar parenchymal disease again noted, much of which appears to be chronic, the appearance should be clinically correlated
--- NOTE | 2024-12-03 13:03 | PD.EDRECHK ---
ED Recheck Abnl Lab Rx-RME/HPI General Chief Complaint: Recheck/Abnormal Lab/Rx Stated Complaint: Black stools, low Hemoglobin, potassium 5.5 Time Seen by Provider: 12/03/24 12:15 Arrival date/time: 12/03/24 12:11 RME / HPI RME / HPI narrative: 83-year-old male patient was sent to us by PCP for evaluation regarding black tarry stool. Patient noticed black tarry stool for the last 3 days, described as pasty severity moderate. No BM yesterday but had a BM today and it was also black. Patient denies any abdominal pain denies any vomiting blood. Patient also complained of shortness of breath and dizziness. Currently taking Plavix. Not taking any aspirin. Patient was seen here 2 weeks ago and received 2 units of packed RBC. His last endoscopy was several years ago. Related Data Home Medications ?Medication ?Instructions ?Recorded ?Confirmed pantoprazole 40 mg tablet,delayed 40 mg PO QDAY 02/07/21 12/04/24 release clopidogrel 75 mg tablet 75 mg PO QDAY 09/22/21 12/03/24 carvedilol 6.25 mg tablet 1 tab PO BID 11/08/21 12/03/24 gabapentin 400 mg capsule 400 cap PO QID 11/10/21 12/03/24 spironolactone 25 mg tablet 25 mg PO QDAY 04/15/22 12/03/24 Previous Rx's ?Medication ?Instructions ?Recorded furosemide 40 mg tablet 40 mg PO BID 30 days #60 tabs 04/16/22 Allergies Allergy/AdvReac Type Severity Reaction Status Date / Time No Known Allergies Allergy Verified 12/03/24 12:17 Review of Systems Review of Systems Narrative Review of Systems: Review of system reviewed and within normal limits except mentioned in HPI ED Exam Narrative Physical exam: VITAL SIGNS: Reviewed. GENERAL APPEARANCE: Alert and interactive, follows commands, no acute distress, HEAD AND FACE: Non-traumatic. ENT: PERRL, pale conjunctiva eyelid no trauma, Mucous membrane moist. NECK: Supple, nontender, no nuchal rigidity. CHEST: No tenderness, no crepitus, no paradoxical movement, no retractions. LUNGS: Clear, well ventilated, symmetric, no rales, no wheezing, no ronchi, no stridor, good breath sounds bilaterally. HEART: Regular rate, regular rhythm, no murmur, no gallops. ABDOMEN: Soft, positive bowel sounds, nondistended, no guarding, nontender, no rebound, no masses, RECTAL: Deferred. GENITAL: Deferred. NEUROLOGICAL: Gross motor function intact sensory function intact, Appropriate for age. MUSCULOSKELETAL: low back nontender, full range of motion. EXTREMITIES: Nontender, full range of motion. SKIN: Color pale, dry, no rash, no lacerations, no abrasions, no contusions. LYMPHATICS: Deferred. Course Quality Measures none Orders Category Date Time Status COVID-19 Screening Questionnaire NOW Care 12/03/24 19:53 Active Decision to Admit X1 Care 12/03/24 19:53 Completed NPO NOW Care 12/03/24 19:57 Completed Occult Blood,Stool (Nursing) ONCE Care 12/03/24 13:01 Active Transfuse,blood/blood products ONCE Care 12/03/24 13:01 Active Diet NPO (NOW) Diet 12/03/24 19:57 Completed XR chest 1V Stat Exams 12/03/24 13:02 Completed CBC Stat Lab 12/03/24 13:08 Completed Comprehensive Metabolic Panel Stat Lab 12/03/24 13:08 Completed Partial Thromboplastin Time Stat Lab 12/03/24 13:08 Completed Prothrombin Time with INR Stat Lab 12/03/24 13:08 Completed Red Blood Cells Stat Lab 12/03/24 13:08 Results Type and Screen Stat Lab 12/03/24 13:08 Results Urinalysis Stat Lab 12/03/24 15:35 Completed ALBUTEROL RT 0.5ml [Proventil Rt 0.5ml] Med 12/03/24 15:27 Discontinued 5 mg INH X1 ONE Pantoprazole Inj [Protonix Inj] Med 12/03/24 13:01 Discontinued 80 mg IVP X1 ONE Pantoprazole/Ns 80Mg IV Premix [Protonix/NS 80mg IV Med 12/03/24 13:15 Discontinued Premix] 80 mg in 100 ml IV X1 Sod Polystyrene Sulfon Susp [Kayexalate Susp] Med 12/03/24 15:27 Discontinued 30 gm PO X1 ONE Sodium Chloride Rt Trudy 0.9% [NS Rt Trudy 0.9%] Med 12/03/24 15:27 Active 3 ml INH PRN PRN Vital Signs Vital signs: Vital Signs Temperature 98.4 F 12/03/24 12:48 Pulse Rate 74 12/03/24 12:48 Respiratory Rate 19 12/03/24 12:48 Blood Pressure 114/64 12/03/24 12:48 Pulse Oximetry (%) 97 12/03/24 12:48 Oxygen Delivery Method Room Air 12/03/24 12:48 Recheck / Abnormal Lab / Rx MDM Narrative MDM Narrative:: 83-year-old male patient was sent to us by PCP for evaluation regarding black tarry stool. Patient noticed black tarry stool for the last 3 days, described as pasty severity moderate. No BM yesterday but had a BM today and it was also black. Patient denies any abdominal pain denies any vomiting blood. Patient also complained of shortness of breath and dizziness. Currently taking Plavix. Not taking any aspirin. Patient was seen here 2 weeks ago and received 2 units of packed RBC. His last endoscopy was several years ago. Patient's hemoglobin was noted to be 8.0. I did a rectal exam, and tested positive for occult blood. The rest of the labs unremarkable. Except for slightly elevated total bili. Chest x-ray showed no infiltrates no pneumothorax pneumothorax. EKG showed normal sinus rhythm, ventricular rate of 72 bpm, no ST segment elevation or depression noted. Patient received 2 units of packed RBC. Spoke with Dr. Ocampo GI specialist on-call, who advised me to place the patient n.p.o. for scope in the morning Spoke with hospitalist who admitted the patient. Patient data External records reviewed:: None Clinical information provided by:: patient Social determinants that could affect healthcare access:: none Patient has the following chronic illnesses:: History of anemia How is presenting disease/condition affected by chronic disease/condition?: exacerbated by Evaluation data The following diagnostics were reviewed and interpreted by me:: lab results and radiology exam(s) Lab and/or radiology exams considered but not ordered:: None see results MDM Interpretation Summary: See results MDM Medications / Prescriptions Medications or Prescriptions considered but not ordered:: None Medication administrations:: Medication Administration History Acetaminophen (Acetaminophen 325 Mg Tablet) 650 mg PO Q6H PRN PRN Reason: Fever >100.4 Stop: 01/02/25 20:36 Acetaminophen (Acetaminophen 325 Mg Tablet) 650 mg PO Q6H PRN PRN Reason: PAIN SCALE 1-3 (mild Stop: 01/02/25 20:36 Hydrocodone Bitart/Acetaminophen (Hydrocodone/Apap 5/325 Tablet) 1 tab PO Q4HR PRN PRN Reason: PAIN SCALE 4-6 (Moderate Stop: 12/08/24 20:36 Albuterol/Ipratropium (Albuterol/Ipratropium (Duoneb) Rt Trudy 3 Ml Nebu) 3 ml INH Q6HRRT PRN PRN Reason: SOB or wheezing Stop: 01/03/25 00:59 Carvedilol (Carvedilol 3.125 Mg Tablet) 6.25 mg PO BID CHITRA Stop: 01/03/25 08:59 Last Admin: 12/04/24 09:20 Dose: 6.25 mg Documented By: Ondansetron HCl (Ondansetron Inj 2 Mg/Ml Inj 2 Ml) 4 mg IVP Q6H PRN; Protocol PRN Reason: NAUSEA OR VOMITING Stop: 01/02/25 20:36 Pantoprazole Sodium (Pantoprazole Inj 40 Mg Vial) 40 mg IVP BID CHITRA Stop: 01/02/25 20:59 Last Admin: 12/04/24 09:20 Dose: 40 mg Documented By: Admin: 12/03/24 23:40 Dose: Not Given Documented By: Non-Admin Reason: Do not administer per Dr. Shelby. Polyethylene Glycol/Electrolytes (Na Martines/Nahco3/Kelvin/Peg (Golytely) 4,000 Ml Btl) 4,000 ml PO X1 PRN PRN Reason: If pt is not clean after first gallon please start second Sodium Chloride (Sodium Chloride Rt Trudy 0.9% 3 Ml Nebu) 3 ml INH PRN PRN PRN Reason: SOLN Stop: 01/02/25 15:26 Discontinued Medications Albuterol (Albuterol Rt 2.5 Mg/0.5 Ml Nebu) 5 mg INH X1 ONE Stop: 12/03/24 15:28 Last Admin: 12/03/24 19:42 Dose: 5 mg Documented By: ELLY Benzocaine (Benzocaine 20% (Hurricaine) [place] 1 Dose) Confirm Administered Dose 1 dose TOP .STK-MED ONE Stop: 12/04/24 16:23 Benzocaine (Benzocaine 20% (Hurricaine) [place] 1 Dose) 0 dose TOP X1 ONE Stop: 12/04/24 17:32 Diphenhydramine HCl (Diphenhydramine Inj 50 Mg/Ml Vial) Confirm Administered Dose 50 mg .ROUTE .STK-MED ONE Stop: 12/04/24 16:23 Diphenhydramine HCl (Diphenhydramine Inj 50 Mg/Ml Vial) 25 mg IVP PRNMRX1 PRN PRN Reason: MODERATE SEDATION Stop: 12/04/24 19:32 Fentanyl Citrate (Fentanyl Cit Inj 50 Mcg/Ml Amp 2ml) Confirm Administered Dose 100 mcg .ROUTE .STK-MED ONE Stop: 12/04/24 16:23 Fentanyl Citrate (Fentanyl Cit Inj 50 Mcg/Ml Amp 2ml) 50 mcg IVP Q2M PRN PRN Reason: MODERATE SEDATION Stop: 12/04/24 19:31 Gabapentin (Gabapentin 100 Mg Capsule) 100 mg PO X1 ONE Stop: 12/04/24 12:18 Gabapentin (Gabapentin 300 Mg Capsule) 300 mg PO X1 ONE Stop: 12/04/24 12:19 Last Admin: 12/04/24 12:48 Dose: 300 mg Documented By: Pantoprazole Sodium (Protonix/Ns 80mg Iv Premix) 80 mg in 100 mls @ 600 mls/hr IV X1 ONE Stop: 12/03/24 13:24 Last Admin: 12/03/24 21:30 Dose: Not Given Documented By: GAGAN Non-Admin Reason: Other, see note Pantoprazole Sodium (Protonix/Ns 80mg Iv Premix) Confirm Administered Dose 80 mg in 100 mls @ ud IV .STK-MED ONE Stop: 12/03/24 20:52 Last Admin: 12/03/24 21:30 Dose: 600 mls/hr Documented By: GAGAN Midazolam HCl (Midazolam Inj 1 Mg/Ml Vial 2 Ml) Confirm Administered Dose 4 mg .ROUTE .STK-MED ONE Stop: 12/04/24 16:23 Midazolam HCl (Midazolam Inj 1 Mg/Ml Vial 2 Ml) 2 mg IVP Q2M PRN PRN Reason: Moderate Sedation Stop: 12/04/24 19:32 Pantoprazole Sodium (Pantoprazole Inj 40 Mg Vial) 80 mg IVP X1 ONE Stop: 12/03/24 13:02 Polyethylene Glycol/Electrolytes (Na Martines/Nahco3/Kelvin/Peg (Golytely) 4,000 Ml Btl) 4,000 ml PO X1 ONE Stop: 12/04/24 19:30 Sodium Polystyrene Sulfonate (Sod Polystyrene Sulfon Susp 15 Gm/60 Ml Btl) 30 gm PO X1 ONE Stop: 12/03/24 15:28 Last Admin: 12/03/24 19:59 Dose: 30 gm Documented By: GAGAN IV Protonix, 2 units of packed RBC Consultations Consultation(s) initiated? (list below): Yes Consultation #1 (Physician, Specialty, Details): Dr. Ocampo thank you Diagnosis Recheck Differential Diagnosis: other (Anemia, upper GI bleed,) Most likely diagnosis given after review of the tests above:: Upper GI bleed, anemia Admission Indicated Admission indicated?: indicated Explain why admission is indicated or not indicated:: Upper GI bleed, anemia Admission Request Was there a request for admission?: Yes Admission Attestation Admission request attestation: Discussed case with Hospitalist service regarding admission. Discussed patients ED course, exam findings, labs, and radiology results. The Hospitalist [agrees] to accept the patient for admission. Disposition Plan Disposition Plan: Admit Discharge Plan Plan Patient Disposition: Admit Acute Care w/in Hospital Problem List Clinical Impression: Anemia, Acute upper gastrointestinal bleeding
[2024-12-03 13:20] LABS: Basophils % (Auto) 1 % (0-2.5); Eosinophils % (Auto) 0 % (0-10); Hematocrit 23.8 % (41.0-53.0); Immature Granulocytes % (Auto) 0 % (0-0); Immature Granulocytes Auto 0.01 Thou/mm3 (0.00-0.00); Lymphocytes # (Auto) 0.9 Thou/mm3 (1.0-4.8); Lymphocytes % (Auto) 29 % (10-50); Mean Corpuscular HGB Conc 33.6 g/dl (31.0-37.0); Mean Corpuscular Hemoglobin 31.3 pg (25.0-35.0); Mean Corpuscular Volume 93 fL (80-100); Monocytes # (Auto) 0.6 Thou/mm3 (0.0-0.8); Monocytes % (Auto) 21 % (0-12); Neutrophils # (Auto) 1.5 Thou/mm3 (1.8-7.7); Neutrophils % (Auto) 50 % (37-80); Nucleated Red Blood Cell % 0 /100 WBC (0); Platelet Count 205 Thou/mm3 (140-440); RDW Standard Deviation 69.4 fL (35.1-43.9); Red Blood Count 2.56 Miln/mm3 (4.50-5.90); White Blood Count 3.1 Thou/mm3 (3.8-10.6)
[2024-12-03 13:34] LABS: INR 1.2 (0.9-1.3); Partial Thromboplastin Time 26.5 Seconds (22.0-36.0); Prothrombin Time 12.9 Seconds (9.0-12.2)
[2024-12-03 13:37] LABS: Alanine Aminotransferase 22 U/L (10-49); Alkaline Phosphatase 100 U/L (46-116); Anion Gap 5 (7-16); Aspartate Amino Transferase 28 U/L (0-34); BUN/Creatinine Ratio 16 Ratio (12-20); Bilirubin,Total 0.7 mg/dL (0.3-1.2); Blood Urea Nitrogen 25 mg/dL (9-23); Calcium 8.8 mg/dL (8.3-10.6); Calcium (Corrected) 8.8 mg/dL (8.5-10.1); Carbon Dioxide 25.7 mMol/L (20.0-31.0); Chloride 103 mMol/L (98-107); Creatinine (Component) 1.6 mg/dL (0.6-1.3); Estimated Creatinine Clearance 31.5 mL/min (>60); Globulin 4.2 gm/dL (2.3-3.5); Glucose 111 mg/dL (74-106); Osmolality,Calculated 273 (275-295); Potassium 5.7 mMol/L (3.4-5.1); Sodium 134 mMol/L (136-145); Total Protein 8.2 gm/dL (5.7-8.2); eGFR 42 See Note
[2024-12-03 15:56] LABS: Collection Type, Urine Clean Catch; Squamous Epithelial Cell,Urine 0 /hpf (0-5)
[2024-12-03 16:05] LABS: Bacteria,Urine Rare; Bilirubin,Urine Negative (Negative); Blood,Urine Negative (Negative); Clarity,Urine Clear (Clear/Hazy); Color,Urine Lt-Yellow (Lt Yel-Yel); Glucose, Urine Negative (Negative); Ketones,Urine Negative (Negative); Leukocyte Esterase,Urine Negative (Negative); Nitrite,Urine Negative (Negative); Protein,Urine Negative (Neg - Trace); RBC,Urine 2 /hpf (0-3); Specific Gravity,Urine 1.012 (1.001-1.035); Urobilinogen,Urine Negative mg/dL (0.0-1.0); WBC,Urine 1 /hpf (0-5)
[2024-12-03] MEDS: ALBUTEROL RT 2.5 MG/0.5 ML NEBU 5 MG INH (19:42)
[2024-12-03] MEDS: SOD POLYSTYRENE SULFON SUSP 15 GM/60 ML BTL 30 GM PO (19:59)
--- NOTE | 2024-12-03 20:41 | EKG_ITS ---
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
--- NOTE | 2024-12-03 20:42 | PD.RESHP ---
Documentation for date of: 12/03/24 [facility] History of Present Illness Chief complaint: black starry stools History of present illness: 83-year-old male with past medical history of HFpEF (55 to 60% on 11/2016), CAD s/p stents (on Plavix only), CKD, cirrhosis secondary to hep C, and myelodysplastic syndrome was admitted to the hospital on 12/03/2024 after come to the ED with complaints of black starry stools for around 5 days. Patient stated that he was here around 2 weeks ago for pneumonialike symptoms and was prescribed antibiotics and has since had improvement, but he developed diarrhea throughout the whole days that he was on antibiotic therapy. He also stated that after he finished antibiotics he did notice having some black starry stools, but for the last few days he has been more constipated. He mentioned that in these past few days he has been taking ibuprofen around 4 tablets at a time due to some foot pain since he has neuropathy. He stated that he saw his primary care physician who stated that he should stay away from ibuprofen and do Tylenol instead. He states that his cough and shortness of breath has been improving and denies any other complaints at this time. He denied having any chest pain, abdominal pain, nausea, vomiting, burning sensation in urination, falls, or dizziness. ED course: Initially came in afebrile normotensive. Initial labs were relevant for leukopenia, low hemoglobin, hyperkalemia, CKD, and UA was positive for bacteria. Initial imaging included chest x-ray which showed right upper lobe vascular parenchymal disease which seems to be chronic. Patient got albuterol 5 mg inhaler x 1 and Kayexalate in the ED. PMH: As above Social Hx: Past smoker and past drug user quit more than 30 years ago. Surgical Hx: Stent placement Medications: Medication reconciliation pending. Review of Systems Review of Systems Systems Reviewed: All systems reviewed, normal except as documented Past Medical History Past Medical History NEUROLOGIC: Negative Neurological Disorders, Cerebrovascular Accident, Transient Ischemic Attacks (TIA), Dementia, Alzheimer's Disease, Parkinson's Disease, Brain Tumor, Meningitis, Seizures, Epilepsy, Multiple Sclerosis, Cerebral Palsy, Amyotrophic Lateral Sclerosis (ALS/Ksenia Gehrig's), Guillain-[place] Syndrome, Spina Bifida, Paralysis, Peripheral Neuropathy, Castellano's Palsy, Subdural Hematoma, Migraine, Head Trauma, Spinal Cord Injury or Traumatic Brain Injury CARDIAC: Positive Cardiac Disorders, Congestive Heart Failure, Edema and Hypertension; Negative Myocardial Infarction, Cardiac Arrhythmia, Atrial Fibrillation, Angina, Heart Murmur, Coronary Artery Disease, Atherosclerotic Heart Disease, Peripheral Vascular Disease, Hypercholesterolemia, Aneurysm, Congenital Heart Disease, Valvular Heart Disease, Rheumatic Fever, Cardiomyopathy, Pericarditis, Cellulitis, Deep Vein Thrombosis, Hypotension or Varicose Veins RESPIRATORY: Positive Chronic Obstructive Pulmonary Disease (COPD), Asthma, Pneumonia and Smoking; Negative Bronchitis, Emphysema, Pulmonary Fibrosis, Cystic Fibrosis, Tuberculosis, Pulmonary Embolism, Pulmonary Edema or Sleep Apnea GASTROINTESTINAL: Positive Hepatitis; Negative Gastrointestinal Disorders, Cirrhosis, Pancreatitis, Celiac Disease, Gall Bladder Disease, Gastrointestinal Bleed, Esophageal Varices, Arango's Esophagus, Colitis, Ulcerative Colitis, Diverticulitis, Diverticulosis, Ulcer, Colorectal Cancer, Irritable Bowel, Crohn's Disease, Obstructive Bowel, Hiatal Hernia, Hemorrhoids, Gastroesophageal Reflux Disease or Obesity GENITOURINARY: Positive Genitourinary Disorders; Negative Renal Disease, Kidney Stones, Polycystic Kidney Disease, Neurogenic Bladder, Inguinal Hernia, Dialysis, Prostate Cancer or Benign Prostatic Hyperplasia REPRODUCTIVE: Negative Breast Cancer, Fibroids, Genital Herpes, Gonorrhea, Syphilis or Testicular Cancer MUSCULOSKELETAL: Positive Musculoskeletal Disorders and Arthritis; Negative Muscular Dystrophy, Myasthenia Gravis, Marfan's Syndrome, Bone Cancer, Rheumatoid Arthritis, Osteoporosis, Degenerative Disk Disease, Gout, Scoliosis, Carpal Tunnel Syndrome, Fibromyalgia, Fractures, Degenerative Joint Disease, Osteomyelitis or Poliovirus ENT: Positive Cataracts; Negative Glaucoma, Blind, Retinal Detachment, Macular Degeneration, Ear Infection, Deafness, Head Trauma or Eye Prosthesis ENDOCRINE: Negative Endocrine Disorders, Diabetes Mellitus Type 1, Diabetes Mellitus Type 2, Hypoglycemia, Maxwell's Syndrome, Ron's Disease, Hyperthyroidism, Hypothyroidism, Parathyroid Disease, Pituitary Disease, Systemic Lupus Erythematosus, Syndrome of Inappropriate Antidiuretic Hormone (SIADH), Adrenal Disease or Graves' Disease HEMATOLOGIC: Positive Blood Disorders and Anemia; Negative Leukemia, Hemophilia, Thalassemia, Sickle Cell Disease or Clotting Problems PSYCHO/SOCIAL: Negative Psychiatric Problems, Schizophrenia, Recreational Drug Use, Bipolar Disorder, Depression, Anxiety, Behavior Problems, Self-Mutilation, Attention Deficit Disorder, Attention Deficit Hyperactivity Disorder, Depression, Post Traumatic Stress Disorder or Eating Disorder OTHER HISTORY: Positive Hospitalization, Falls, Blood Transfusions, Chicken Pox, Mumps and Hepatitis C; Negative Autoimmune Disease, Down Syndrome, Autism, Developmental Delay, Shingles, Blood Transfusion Reaction, Anesthesia Reactions, Organ Transplant, Chemotherapy, Radiation Therapy, Hyperbaric Therapy, MRSA, VRSA, Vancomycin-Resistant Enterococci, Human Immunodeficiency Virus (HIV), Measles, Rubella ([place]ian Measles), Pertussis, Clostridium Difficile, Breast Cancer, Cervical Cancer, Colorectal Cancer, Lung Cancer, Prostate Cancer or Testicular Cancer Family History FAMILY HISTORY: Positive Family Cardiac Disorders and Family Gastrointestinal Problems; Negative Family Psychiatric Problems, Family Respiratory Disorders, Family Cancer, Family Surgery or Family Anesthesia Reaction Surgical History SURGICAL: Positive Eye Surgery, Tonsillectomy and Abdominal Surgery; Negative Cardiac Surgery, Open Heart Surgery, Coronary Artery Bypass Graft, Valve Replacement, Vascular Surgery, Coronary Stent, Cardiac Catheterization, Pacemaker, Angiogram, Auto Implanted Cardiovert Defib, Carotid Endarterectomy, Endocrine Surgery, Thyroidectomy, Ear Surgery, Tympanostomy Tube, Nose Surgery, Oral Surgery, Adenoidectomy, Cochlear Implant, Corneal Transplant, Throat Surgery, Tracheostomy, Gastric Bypass Surgery, Gastrostomy, Bowel Surgery, Nephrectomy, Transurethral Resection, Joint Replacement, Amputation, Open Reduction Internal Fixation, Arthroscopy, Neurologic Surgery, Brain Shunt, Mastectomy, Lumpectomy, Hysterectomy, Tubal Ligation, Section, Vasectomy or Organ Transplant Social History SMOKING STATUS: Former smoker SECOND HAND EXPOSURE: No SUBSTANCE USE: former substance user and heroin Exam Vital Signs Temp Pulse Resp BP Pulse Ox O2 Del Method 97.8 F 72 16 137/65 H 98 Aerosol Mask 12/03/24 20:24 12/03/24 20:24 12/03/24 20:24 12/03/24 20:24 12/03/24 20:24 12/03/24 19:50 Narrative Exam General: A/O x3, no acute distress Eyes: PERRL, EOMI. Anicteric, vision grossly intact. Ears: No ear pain, no ear discharge, Hearing grossly intact. Nose: No nasal discharge. Mouth/Throat: Moist mucous membranes, no redness, no lesions. Neck: Neck supple, non-tender, no cervical lymphadenopathy. Lungs: Mild rhales in Lower lobes TRACEY, No accessory muscle use. Cardio: Normal S1/S2, regular rhythm, no murmurs, no JVD or carotid bruits. Abdomen: Soft, non-tender, no palpable masses, peristalsis present, no guarding or rebound. Extremities: Symmetrical, no significant deformities, no peripheral edema , non-tender, peripheral pulses presents. Skin: No rashes, no lesions, warm to touch. Neuro: No focal neurological deficits. motor and sensory intact Psych: Cooperative, appropriate mood and effect. Results: Labs 12/03/24 13:08 12/03/24 13:08 Labs: Short CBC 12/03/24 Range/Units 13:08 WBC 3.1 L (3.8-10.6) Thou/mm3 Hgb 8.0 L (13.5-16.0) g/dL Hct 23.8 L (41.0-53.0) % Plt Count 205 (140-440) Thou/mm3 BMP 12/03/24 13:08 Sodium 134 L Potassium 5.7 H Chloride 103 Carbon Dioxide 25.7 BUN 25 H Creatinine 1.6 H Glucose 111 H Calcium 8.8 Liver Function 12/03/24 Range/Units 13:08 Total Bilirubin 0.7 (0.3-1.2) mg/dL AST 28 (0-34) U/L ALT 22 (10-49) U/L Alkaline Phosphatase 100 (46-116) U/L Albumin 4.0 (3.4-4.8) gm/dL Urine 12/03/24 Range/Units 15:35 Urine Color Lt-Yellow (Lt Yel-Yel) Urine Clarity Clear (Clear/Hazy) Urine pH 7.0 (5.0-7.0) Ur Specific [place] 1.012 (1.001-1.035) Urine Protein Negative (Neg - Trace) Urine Glucose (UA) Negative (Negative) Quality Measures Quality Measures VTE prophylaxis Advance care planning discussed with:: patient Medications Home Medications and Allergies Home Medications ?Medication ?Instructions ?Recorded ?Confirmed ?Type pantoprazole 40 mg tablet,delayed 40 mg PO QDAY 02/07/21 02/10/24 History release clopidogrel 75 mg tablet 75 mg PO QDAY 09/22/21 02/10/24 History carvedilol 6.25 mg tablet 1 tab PO BID 11/08/21 02/10/24 History gabapentin 400 mg capsule 400 cap PO QID 11/10/21 02/10/24 History spironolactone 25 mg tablet 25 mg PO QDAY 04/15/22 02/10/24 History Allergies Allergy/AdvReac Type Severity Reaction Status Date / Time No Known Allergies Allergy Verified 12/03/24 12:17 Visit Medications Acetaminophen (Acetaminophen 325 Mg Tablet) 650 mg PO Q6H PRN PRN Reason: Fever >100.4 Stop: 01/02/25 20:36 Acetaminophen (Acetaminophen 325 Mg Tablet) 650 mg PO Q6H PRN PRN Reason: PAIN SCALE 1-3 (mild Stop: 01/02/25 20:36 Hydrocodone Bitart/Acetaminophen (Hydrocodone/Apap 5/325 Tablet) 1 tab PO Q4HR PRN PRN Reason: PAIN SCALE 4-6 (Moderate Stop: 12/08/24 20:36 Albuterol/Ipratropium (Albuterol/Ipratropium (Duoneb) Rt Trudy 3 Ml Nebu) 3 ml INH Q6HRRT PRN PRN Reason: SOB or wheezing Stop: 01/03/25 00:59 Ondansetron HCl (Ondansetron Inj 2 Mg/Ml Inj 2 Ml) 4 mg IVP Q6H PRN; Protocol PRN Reason: NAUSEA OR VOMITING Stop: 01/02/25 20:36 Pantoprazole Sodium (Pantoprazole Inj 40 Mg Vial) 40 mg IVP BID CHITRA Stop: 01/02/25 20:59 Sodium Chloride (Sodium Chloride Rt Trudy 0.9% 3 Ml Nebu) 3 ml INH PRN PRN PRN Reason: SOLN Stop: 01/02/25 15:26 Discontinued Medications Albuterol (Albuterol Rt 2.5 Mg/0.5 Ml Nebu) 5 mg INH X1 ONE Stop: 12/03/24 15:28 Last Admin: 12/03/24 19:42 Dose: 5 mg Pantoprazole Sodium (Protonix/Ns 80mg Iv Premix) 80 mg in 100 mls @ 600 mls/hr IV X1 ONE Stop: 12/03/24 13:24 Pantoprazole Sodium (Pantoprazole Inj 40 Mg Vial) 80 mg IVP X1 ONE Stop: 12/03/24 13:02 Sodium Polystyrene Sulfonate (Sod Polystyrene Sulfon Susp 15 Gm/60 Ml Btl) 30 gm PO X1 ONE Stop: 12/03/24 15:28 Last Admin: 12/03/24 19:59 Dose: 30 gm Assessment & Plan Plan 83-year-old male with past medical history of HFpEF (55 to 60% on 11/2016), CAD s/p stents (on Plavix only), CKD, cirrhosis secondary to hep C, and myelodysplastic syndrome was admitted to the hospital on 12/03/2024 GI bleed. #Acute blood loss anemia #GI bleed #Melena #NSAID use Patient came in with black starry stools for the past 5 days after he was using ibuprofen for pain daily. Hemoglobin on admission was 8 and was previously 9.3 on 11/23/2024 and prior to that was 6.5 on 11/19/2024 for which she got a blood transfusion. Patient was taking Plavix due to stents Plan: Protonix twice daily N.p.o. for possible surgical intervention GI consulted, appreciate recommendations Patient is getting 1 unit of PRBC transfused in the ED. Will transfer hemoglobin less than 8 given cardiac history #Hyperkalemia Patient came with potassium of 5.7 Patient appears to be chronically having hyperkalemia as the previous lab results were between 5.1-5.7. Got albuterol 5 mg x 1 and Kayexalate x 1 in the ED Plan: Order EKG to monitor for any changes Order repeat potassium Will continue to monitor. #Asymptomatic bacteriuria UA was positive bacteria, but patient has no symptoms at this time. No need for antibiotic coverage at this time. Chronic diseases: #Hx of HFpEF (55 to 60% EF on 11/2016) #Hx of CAD s/p stents (on Plavix) Patient does not seem to be in CHF exacerbation Will hold Plavix for now in the setting of possible bleed #Hx of CKD #Hx of cirrhosis secondary to hep C Patient's baseline creatinine is around 1.6 and on admission was 1.6 Avoid nephrotoxic agents Renally dose medications Disposition: Patient admitted to [facility] for GI bleed. Diet: NPO GI prophylaxis: protonix DVT prophylaxis: SCDs Code: DNR/ DNI Case disclosed with Attending Dr. Charli Givens PGY1 Disclaimer: Even though this this note was dictated by speech recognition and even though it was carefully revised there may still be minor errors in assistant kitchen manager due to voice recognition software. Attending Provider Attestation/Addendum 83-year-old male patient was admitted for melena. The patient is feeling weak and sometimes lightheaded. Just does not feel right. He has poor appetite. The patient is being transfused. She has been taking ibuprofen for aches and pains at the same time he takes the Plavix for CAD status post stent. The patient will be seen by Dr. Ocampo from GI. The patient said he had weight loss. There is no cancer in the family. The patient has hep C, cirrhosis, CKD. He used to be a heavy smoker.
[2024-12-03] MEDS: PANTOPRAZOLE/NS 80MG IV PREMIX 80 MG/100 ML BAG 600 MG IV (21:30)
--- NOTE | 2024-12-03 21:30 | PD.IMCONS ---
HPI Data of Consult Requesting Physician: Jarvis Augustin MD Primary Care Provider: Physician No Primary/Family Consult Narrative Reason for consult: Melena low hemoglobin hematocrit History of present illness: 83 years old male came into the emergency room sent by the primary care physician for dark melanotic stools Presenting hemoglobin hematocrit 8.0 and 23.8 Patient does take Plavix for underlying coronary artery status post PCI and he started taking ibuprofen at least 4 tablets a day which is Advil for his foot pain start having dark melanotic stools He has a history of bronchitis given antibiotics in the last 2 weeks developed diarrhea but the diarrhea stopped after the antibiotics course was finished Patient has a history of coronary artery status post PCI cirrhotic liver disease secondary to hepatitis C and myelodysplastic syndrome He did have a hemoglobin hematocrit of 6.5 and 19.6 on 11/19/2024 requiring 2 units of PRBC cc:: cc: Jarvis Augustin MD Review of Systems Review of Systems Systems Reviewed: All systems reviewed, normal except as documented Past Medical History Surgical History OTHER SURGICAL HX: As in the history of present illness Meds Home Medications and Allergies Home Medications ?Medication ?Instructions ?Recorded ?Confirmed ?Type pantoprazole 40 mg tablet,delayed 40 mg PO QDAY 02/07/21 02/10/24 History release clopidogrel 75 mg tablet 75 mg PO QDAY 09/22/21 02/10/24 History carvedilol 6.25 mg tablet 1 tab PO BID 11/08/21 02/10/24 History gabapentin 400 mg capsule 400 cap PO QID 11/10/21 02/10/24 History spironolactone 25 mg tablet 25 mg PO QDAY 04/15/22 02/10/24 History Allergies Allergy/AdvReac Type Severity Reaction Status Date / Time No Known Allergies Allergy Verified 12/03/24 12:17 Exam Vital Signs Temp Pulse Resp BP Pulse Ox O2 Del Method 97.6 F 71 17 136/83 H 97 Aerosol Mask 12/03/24 20:39 12/03/24 20:39 12/03/24 20:39 12/03/24 20:39 12/03/24 20:39 12/03/24 19:50 Constitutional Comments: Chronically ill-appearing Routine Respiratory Exam Comments: Normal to auscultation Routine Abdominal Exam Comments: Soft nontender active bowel sounds Results Labs 12/03/24 13:08 12/03/24 13:08 Labs: Short CBC 12/03/24 Range/Units 13:08 WBC 3.1 L (3.8-10.6) Thou/mm3 Hgb 8.0 L (13.5-16.0) g/dL Hct 23.8 L (41.0-53.0) % Plt Count 205 (140-440) Thou/mm3 BMP 12/03/24 13:08 Sodium 134 L Potassium 5.7 H Chloride 103 Carbon Dioxide 25.7 BUN 25 H Creatinine 1.6 H Glucose 111 H Calcium 8.8 Liver Function 12/03/24 Range/Units 13:08 Total Bilirubin 0.7 (0.3-1.2) mg/dL AST 28 (0-34) U/L ALT 22 (10-49) U/L Alkaline Phosphatase 100 (46-116) U/L Albumin 4.0 (3.4-4.8) gm/dL Urine 12/03/24 Range/Units 15:35 Urine Color Lt-Yellow (Lt Yel-Yel) Urine Clarity Clear (Clear/Hazy) Urine pH 7.0 (5.0-7.0) Ur Specific [place] 1.012 (1.001-1.035) Urine Protein Negative (Neg - Trace) Urine Glucose (UA) Negative (Negative) Assessment and Plan Additional Assessment & Plan Additional Plan: # Melena combination of ibuprofen induced gastric injury complicated by the use of Plavix Low hemoglobin hematocrit complicated by myelodysplastic syndrome Plan Clear liquid diet till 12 midnight IV Protonix Serial CBC Consent obtained for fiberoptic esophagogastroduodenoscopy with possible biopsy possible therapeutic intervention under intravenous moderate sedation N.p.o. midnight tonight Other medical problems include Chronic liver disease secondary to hepatitis C Coronary artery status post PCI Myelodysplastic syndrome requiring frequent blood transfusions Thank you very much for the opportunity to participate in care of this patient
[2024-12-03 22:28] LABS: Potassium 5.2 mMol/L (3.4-5.1); Troponin I < 0.020 ng/mL (0.0-0.045)
--- NOTE | 2024-12-03 23:38 | PC.NURSE ---
Patient received 1 unit of PRBCs in ED. Per Dr. Shelby, hold the 2nd unit at this time and have post Hgb and Hct drawn.
[2024-12-04] VITALS (24 sets, daily range): BP systolic 101–153; BP diastolic 53–81; PULSE 65–89; RESP 14–100; TEMP 36.1–36.5; O2SAT 94–100
[2024-12-04 00:06] LABS: Hematocrit 28.1 % (41.0-53.0); Hemoglobin 9.3 g/dL (13.5-16.0)
[2024-12-04 05:53] LABS: Basophils % (Auto) 0 % (0-2.5); Eosinophils % (Auto) 0 % (0-10); Hematocrit 25.9 % (41.0-53.0); Immature Granulocytes % (Auto) 6 % (0-0); Immature Granulocytes Auto 0.16 Thou/mm3 (0.00-0.00); Lymphocytes # (Auto) 0.7 Thou/mm3 (1.0-4.8); Lymphocytes % (Auto) 28 % (10-50); Mean Corpuscular HGB Conc 33.6 g/dl (31.0-37.0); Mean Corpuscular Hemoglobin 31.2 pg (25.0-35.0); Mean Corpuscular Volume 93 fL (80-100); Monocytes # (Auto) 0.6 Thou/mm3 (0.0-0.8); Monocytes % (Auto) 24 % (0-12); Neutrophils # (Auto) 1.1 Thou/mm3 (1.8-7.7); Neutrophils % (Auto) 42 % (37-80); Nucleated Red Blood Cell % 0 /100 WBC (0); Platelet Count 188 Thou/mm3 (140-440); RDW Standard Deviation 67.6 fL (35.1-43.9); Red Blood Count 2.79 Miln/mm3 (4.50-5.90)
[2024-12-04 05:59] LABS: Hemoglobin 8.7 g/dL (13.5-16.0); White Blood Count 2.6 Thou/mm3 (3.8-10.6)
[2024-12-04 06:13] LABS: Alanine Aminotransferase 19 U/L (10-49); Albumin, Serum 3.7 gm/dL (3.4-4.8); Alkaline Phosphatase 85 U/L (46-116); Anion Gap 9 (7-16); Aspartate Amino Transferase 22 U/L (0-34); BUN/Creatinine Ratio 18 Ratio (12-20); Bilirubin,Total 1.8 mg/dL (0.3-1.2); Blood Urea Nitrogen 23 mg/dL (9-23); Calcium (Corrected) 9.2 mg/dL (8.5-10.1); Carbon Dioxide 23.7 mMol/L (20.0-31.0); Chloride 104 mMol/L (98-107); Creatinine (Component) 1.3 mg/dL (0.6-1.3); Estimated Creatinine Clearance 40.9 mL/min (>60); Globulin 3.8 gm/dL (2.3-3.5); Glucose 88 mg/dL (74-106); Magnesium 1.8 mg/dL (1.6-2.6); Osmolality,Calculated 276 (275-295); Potassium 4.8 mMol/L (3.4-5.1); Sodium 137 mMol/L (136-145); Total Protein 7.5 gm/dL (5.7-8.2); eGFR 55 See Note
--- NOTE | 2024-12-04 09:03 | PC.SS ---
Patient Froilan Perez is a 83 Year old male admitted for GI Bleed. SS met with patient at bedside to discuss discharge plan and review demographic information. Patient reports he lives at home with his , Jyoti Reddy who he reports is his surrogate decision maker, [phone]. Patient reports the utilizes a cane to assit with ambulation. Patient reports he is able to complete all ADL's independently. Patient reports his PCP is at [facility]. Choice of pharmacy is [facility]. at time of discharge patient will discharge home. will provide transportation. Discharge plan: Home Next of kin: , Jyoti Barry
--- NOTE | 2024-12-04 09:13 | PC.NURSE ---
PER DOCTOR HARINDER RICH TO GIVE PTS COREG WITH SMALL SIP OF WATER.
[2024-12-04] MEDS: carVEDILOL 3.125 MG TABLET 6.25 MG PO ×2 (09:20→21:44)
[2024-12-04] MEDS: PANTOPRAZOLE INJ 40 MG VIAL IVP ×2 (09:20→21:45)
--- NOTE | 2024-12-04 12:04 | PC.NURSE ---
BLOOD SUGAR ASSESS 81 DENIES ANY HYPOGLYCEMIC SYMPTOMS.
[2024-12-04] MEDS: GABAPENTIN 300 MG CAPSULE PO (12:48)
--- NOTE | 2024-12-04 13:16 | PD.RESPRO ---
Documentation for date of: 12/04/24 Subjective Subjective Interval history: Overnight admission. Seen and examined at bedside and patient resting comfortably in bed, denying any abdominal pain, nausea, vomiting. Received 1 unit PRBC in ED and hemoglobin improved from 8.0 to 9.3 and has not had any episodes of dark, tarry bowel movements. EGD planned for today as patient is n.p.o. and will await further recommendations from GI. Otherwise, vital signs stable, CBC shows stable hemoglobin, CHEM panel showed resolved FREDDY, and total bilirubin noted to increase but patient denies any abdominal pain and will continue to monitor. Exam Vital Signs Temp Pulse Resp BP Pulse Ox O2 Del Method 97.1 F 76 15 138/70 H 96 Room Air 12/04/24 08:00 12/04/24 11:58 12/04/24 08:00 12/04/24 09:20 12/04/24 08:00 12/04/24 04:00 Narrative Exam General: AOx3, no acute distress, able to speak full sentences HEENT: NC/AT, mucous membranes moist, bilateral sclera anicteric Cardiovascular: regular rate and rhythm, S1/S2 present, no murmurs appreciated Pulmonary: clear to auscultation bilaterally, no rales/rhonchi/wheezes Abdominal: soft, non-tender, non-distended, no rebound/guarding, normal bowel sounds present Musculoskeletal: normal ROM, no peripheral edema Skin: warm and dry, intact, no rashes Neuro: CN II-XII intact, no focal deficits Objective Labs 12/05/24 05:52 12/04/24 05:06 Labs: Laboratory Results - last 24 hr 12/03/24 12/03/24 12/03/24 13:08 15:35 20:50 WBC 3.1 L RBC 2.56 L Hgb 8.0 L Hct 23.8 L MCV 93 MCH 31.3 MCHC 33.6 RDW Std Deviation 69.4 H Plt Count 205 Neut % (Auto) 50 Lymph % (Auto) 29 [place] % (Auto) 21 H Eos % (Auto) 0 Baso % (Auto) 1 Neut # (Auto) 1.5 L Lymph # (Auto) 0.9 L [place] # (Auto) 0.6 Eos # (Auto) 0.0 Baso # (Auto) 0.0 Immature Gran # (Auto) 0.01 H Absolute Nucleated RBC 0.00 Immature Gran % 0 Nucleated RBC % 0 PT 12.9 H INR 1.2 APTT 26.5 Sodium 134 L Potassium 5.7 H 5.2 H D Chloride 103 Carbon Dioxide 25.7 Anion Gap 5 L BUN 25 H Creatinine 1.6 H Estim Creat Clear Calc 31.5 L eGFR 42 L BUN/Creatinine Ratio 16 Glucose 111 H Calculated Osmolality 273 L Calcium 8.8 Corrected Calcium 8.8 Magnesium Total Bilirubin 0.7 AST 28 ALT 22 Alkaline Phosphatase 100 Troponin I < 0.020 Total Protein 8.2 Albumin 4.0 Globulin 4.2 H Albumin/Globulin Ratio 1.0 L Ur Collection Type Clean Catch Urine Color Lt-Yellow Urine Clarity Clear Urine pH 7.0 Ur Specific [place] 1.012 Urine Protein Negative Urine Glucose (UA) Negative Urine Ketones Negative Urine Blood Negative Urine Nitrite Negative Urine Bilirubin Negative Urine Urobilinogen (Auto) Negative Ur Leukocyte Esterase Negative Urine RBC 2 Urine WBC 1 Ur Squamous Epith Cells 0 Urine Bacteria Rare Blood Type A Positive Antibody Screen NEGATIVE Crossmatch See Detail Blood Bank Wristband ID Yes 12/03/24 12/04/24 23:57 05:06 WBC 2.6 L RBC 2.79 L Hgb 9.3 L 8.7 L Hct 28.1 L 25.9 L MCV 93 MCH 31.2 MCHC 33.6 RDW Std Deviation 67.6 H Plt Count 188 Neut % (Auto) 42 Lymph % (Auto) 28 [place] % (Auto) 24 H Eos % (Auto) 0 Baso % (Auto) 0 Neut # (Auto) 1.1 L Lymph # (Auto) 0.7 L [place] # (Auto) 0.6 Eos # (Auto) 0.0 Baso # (Auto) 0.0 Immature Gran # (Auto) 0.16 H Absolute Nucleated RBC 0.00 Immature Gran % 6 H Nucleated RBC % 0 PT INR APTT Sodium 137 Potassium 4.8 Chloride 104 Carbon Dioxide 23.7 Anion Gap 9 BUN 23 Creatinine 1.3 Estim Creat Clear Calc 40.9 L eGFR 55 L BUN/Creatinine Ratio 18 Glucose 88 Calculated Osmolality 276 Calcium 9.0 Corrected Calcium 9.2 Magnesium 1.8 Total Bilirubin 1.8 H D AST 22 ALT 19 Alkaline Phosphatase 85 Troponin I Total Protein 7.5 Albumin 3.7 Globulin 3.8 H Albumin/Globulin Ratio 1.0 L Ur Collection Type Urine Color Urine Clarity Urine pH Ur Specific [place] Urine Protein Urine Glucose (UA) Urine Ketones Urine Blood Urine Nitrite Urine Bilirubin Urine Urobilinogen (Auto) Ur Leukocyte Esterase Urine RBC Urine WBC Ur Squamous Epith Cells Urine Bacteria Blood Type Antibody Screen Crossmatch Blood Bank Wristband ID Quality Measures Quality Measures VTE prophylaxis Advance care planning discussed with:: patient Assessment & Plan Assessment Current Active Medications: Generic Name Dose Route Start Last Admin Trade Name Freq PRN Reason Stop Dose Admin Acetaminophen 650 mg 12/03/24 20:37 Acetaminophen 325 Mg Tablet PO 01/02/25 20:36 Q6H PRN Fever >100.4 Acetaminophen 650 mg 12/03/24 20:37 Acetaminophen 325 Mg Tablet PO 01/02/25 20:36 Q6H PRN PAIN SCALE 1-3 (mild Hydrocodone Bitart/Acetaminophen 1 tab 12/03/24 20:37 Hydrocodone/Apap 5/325 Tablet PO 12/08/24 20:36 Q4HR PRN PAIN SCALE 4-6 (Moderate Albuterol/Ipratropium 3 ml 12/03/24 20:37 Albuterol/Ipratropium (Duoneb) Rt Trudy 3 Ml Nebu INH 01/03/25 00:59 Q6HRRT PRN SOB or wheezing Carvedilol 6.25 mg 12/04/24 09:00 12/04/24 09:20 Carvedilol 3.125 Mg Tablet PO 01/03/25 08:59 6.25 mg BID CHITRA Administration Ondansetron HCl 4 mg 12/03/24 20:37 Ondansetron Inj 2 Mg/Ml Inj 2 Ml IVP 01/02/25 20:36 Q6H PRN NAUSEA OR VOMITING Protocol Pantoprazole Sodium 40 mg 12/03/24 21:00 12/04/24 09:20 Pantoprazole Inj 40 Mg Vial IVP 01/02/25 20:59 40 mg BID CHITRA Administration Sodium Chloride 3 ml 12/03/24 15:27 Sodium Chloride Rt Trudy 0.9% 3 Ml Nebu INH 01/02/25 15:26 PRN PRN SOLN Plan Froilan Perez is an 83-year-old male with past medical history of HFpEF (55 to 60% on 02/2024), CAD s/p stents (on Plavix only), CKD, cirrhosis secondary to hep C, and myelodysplastic syndrome who is admitted for GI bleed. #Acute blood loss anemia #GI bleed #Melena #NSAID use Presents with black starry stools after using daily ibuprofen for pain on top of plavix. Hemoglobin on admission was 8 and previously 9.3 on 11/23/2024. ? GI consulted, appreciate recommendations ? Protonix twice daily ? N.p.o. ? Transfuse if hemoglobin less than 8 given cardiac history #Hyperkalemia, resolved Presented with potassium of 5.7. Appears to be chronically hyperkalemic as previous labs between 5.1-5.7. Received albuterol 5 mg x 1 and Kayexalate x 1 in ED. EKG without changes related to hyperkalemia. ? Continue to monitor and address as needed #Asymptomatic bacteriuria UA was positive bacteria, but patient has no symptoms at this time. No need for antibiotic coverage at this time. #HFpEF (55 to 60% 02/2024) Echo 02/2024 showed EF 55-60%, no significant valuvlopathy. States that he no longer takes diuretics. Not in acute exacerbation. ? Carvedilol 6.25 mg BID #CAD s/p stents (on Plavix) ? Will hold Plavix for now in the setting of possible bleed #History of CKD #History of cirrhosis secondary to hepatitis C Baseline creatinine is around 1.6 and on admission was 1.6 ? Avoid nephrotoxic agents ? Renally dose medications Health maintenance: Disposition: Patient admitted to [facility] for GI bleed Diet: NPO GI prophylaxis: protonix DVT prophylaxis: SCDs Code: DNR/ DNI ----- Plan discussed with attending physician Dr. Tao Prabhakar MD PGY-1 Internal Medicine Attending Provider Attestation/Addendum I have examined the patient, reviewed labs and imaging findings, discussed the case with the resident(s), and reviewed entered orders. I agree with the plan of care as outlined in this note, with these additional summaries/recommendations: Patient seen at bedside. No acute overnight events. He endorses mild generalized weakness although no other complaints at this time except for bilateral lower extremity neuropathy. Patient diagnosed with acute blood loss anemia secondary to GI bleed. Hemoglobin was 8 on admission and given prior cardiac history he was transfused 1 unit PRBCs with improvement in hemoglobin. He does endorse significant NSAID use possibly secondary to gastric ulcer. Gastroenterology consulted with plans for EGD. Continue Protonix and IV fluids. NPO. Patient was also noted to have hyperkalemia on admission possibly secondary to spironolactone which we will hold for now. Potassium now within normal limits and continue to monitor. Patient has history of CAD and will hold Plavix for GI bleed. Patient has history of MDS and following hematology/oncology outpatient. Leukopenia present on hematology panel although it is chronic and relatively at baseline. Patient will follow-up outpatient for continued management of MDS. FREDDY now resolved with IV fluids. Minimal hyperbilirubinemia present on chemistry panel with normal AST, ALT, and alkaline phosphatase. Hyperbilirubinemia likely related to GI bleed and will continue to monitor for for resolution. Patient updated on the plan and in agreement. All questions answered to satisfaction. Please see residents note for additional details and management. Dr. Tao MD
--- NOTE | 2024-12-04 16:59 | PC.NURSE ---
PATIENT TRANSFER VIA GURNEY TO [facility] HE IS ALERT AND ORIENTED.
--- NOTE | 2024-12-04 17:46 | SUR.PHASEI ---
pt received from OR in recovery bay 2. pt asleep but responds to voice, breathing unlabored on 2l nc. v/s stable. report received from Jeannette GRAY.
--- NOTE | 2024-12-04 18:35 | SUR.PHASEI ---
pt awake and alert, breathing unlabored on room air. v/s stable. report called to Ching GRAY. pt will be tranferred to room at this time.
--- NOTE | 2024-12-04 18:40 | PC.NURSE ---
PATIENT BACK IN HIS ROOM ALERT AND ORIENTED X3, LATE TRAY ORDER.
[2024-12-04] MEDS: NA SU/NAHCO3/KC/PEG (Golytely) 4,000 ML BTL 4000 ML PO (21:20)
[2024-12-05] VITALS (14 sets, daily range): BP systolic 119–155; BP diastolic 54–95; PULSE 65–88; RESP 16–99; TEMP 36.1–36.4; O2SAT 94–98
[2024-12-05 06:48] LABS: Basophils % (Auto) 1 % (0-2.5); Eosinophils % (Auto) 0 % (0-10); Hematocrit 27.3 % (41.0-53.0); Hemoglobin 9.1 g/dL (13.5-16.0); Immature Granulocytes % (Auto) 7 % (0-0); Lymphocytes # (Auto) 0.6 Thou/mm3 (1.0-4.8); Lymphocytes % (Auto) 24 % (10-50); Mean Corpuscular HGB Conc 33.3 g/dl (31.0-37.0); Mean Corpuscular Hemoglobin 31.1 pg (25.0-35.0); Mean Corpuscular Volume 93 fL (80-100); Monocytes # (Auto) 0.6 Thou/mm3 (0.0-0.8); Monocytes % (Auto) 22 % (0-12); Neutrophils # (Auto) 1.3 Thou/mm3 (1.8-7.7); Neutrophils % (Auto) 46 % (37-80); Nucleated Red Blood Cell % 0 /100 WBC (0); Platelet Count 202 Thou/mm3 (140-440); RDW Standard Deviation 68.5 fL (35.1-43.9); Red Blood Count 2.93 Miln/mm3 (4.50-5.90)
[2024-12-05 06:52] LABS: White Blood Count 2.7 Thou/mm3 (3.8-10.6)
[2024-12-05 07:53] LABS: Alanine Aminotransferase 17 U/L (10-49); Albumin, Serum 3.8 gm/dL (3.4-4.8); Alkaline Phosphatase 97 U/L (46-116); Anion Gap 9 (7-16); Aspartate Amino Transferase 25 U/L (0-34); BUN/Creatinine Ratio 16 Ratio (12-20); Bilirubin,Total 1.6 mg/dL (0.3-1.2); Blood Urea Nitrogen 21 mg/dL (9-23); Calcium 8.9 mg/dL (8.3-10.6); Calcium (Corrected) 9.1 mg/dL (8.5-10.1); Chloride 101 mMol/L (98-107); Creatinine (Component) 1.3 mg/dL (0.6-1.3); Estimated Creatinine Clearance 40.9 mL/min (>60); Globulin 3.8 gm/dL (2.3-3.5); Glucose 79 mg/dL (74-106); Magnesium 1.6 mg/dL (1.6-2.6); Osmolality,Calculated 272 (275-295); Sodium 135 mMol/L (136-145); Total Protein 7.6 gm/dL (5.7-8.2); eGFR 55 See Note
[2024-12-05] MEDS: carVEDILOL 3.125 MG TABLET 6.25 MG PO ×2 (08:29→23:13)
[2024-12-05] MEDS: PANTOPRAZOLE INJ 40 MG VIAL IVP ×2 (08:29→23:14)
[2024-12-05] MEDS: INSULIN HUM REGULAR 1 UNIT/0.01 ML (PER UNIT) 5 UNIT IV (09:28)
[2024-12-05] MEDS: DEXTROSE 50%-WATER INJ 50 ML SYRINGE IVP (09:28)
[2024-12-05] MEDS: PATIROMER CALCIUM 8.4 GM PACKET (NON-FORM) PO (10:27)
--- NOTE | 2024-12-05 10:39 | PD.RESPRO ---
Documentation for date of: 12/05/24 Subjective Subjective Interval history: No acute overnight events. Seen and examined at bedside and updated patient that EGD was largely unremarkable and no signs of bleeding found. Thus, patient was started on GoLytely prep for colonoscopy today. At present, he is not clear and will continue clear preparation but appears to be close per nursing staff. Otherwise, he has no complaints. Vital signs stable, hemoglobin is stable, K noted to be elevated at 6.0 and treated with 5 units regular insulin with D50 as well as albuterol treatment. Repeat came down to 5.4 though her breathing treatment was done late and will order repeat later in evening. Exam Vital Signs Temp Pulse Resp BP Pulse Ox O2 Del Method O2 Flow Rate 97.4 F 72 18 149/75 H 96 Room Air 3 12/05/24 08:00 12/05/24 08:29 12/05/24 08:00 12/05/24 08:29 12/05/24 08:00 12/05/24 08:00 12/04/24 19:22 Narrative Exam General: AOx3, no acute distress, able to speak full sentences HEENT: NC/AT, mucous membranes moist, bilateral sclera anicteric Cardiovascular: regular rate and rhythm, S1/S2 present, no murmurs appreciated Pulmonary: clear to auscultation bilaterally, no rales/rhonchi/wheezes Abdominal: soft, non-tender, non-distended, no rebound/guarding, normal bowel sounds present Musculoskeletal: normal ROM, no peripheral edema Skin: warm and dry, intact, no rashes Neuro: CN II-XII intact, no focal deficits Objective Labs 12/06/24 04:46 12/06/24 04:46 Labs: Laboratory Results - last 24 hr 12/05/24 05:52 WBC 2.7 L RBC 2.93 L Hgb 9.1 L Hct 27.3 L MCV 93 MCH 31.1 MCHC 33.3 RDW Std Deviation 68.5 H Plt Count 202 Neut % (Auto) 46 Lymph % (Auto) 24 [place] % (Auto) 22 H Eos % (Auto) 0 Baso % (Auto) 1 Neut # (Auto) 1.3 L Lymph # (Auto) 0.6 L [place] # (Auto) 0.6 Eos # (Auto) 0.0 Baso # (Auto) 0.0 Immature Gran # (Auto) 0.20 H Absolute Nucleated RBC 0.00 Immature Gran % 7 H Nucleated RBC % 0 Sodium 135 L Potassium 6.0 H D Chloride 101 Carbon Dioxide 25.0 Anion Gap 9 BUN 21 Creatinine 1.3 Estim Creat Clear Calc 40.9 L eGFR 55 L BUN/Creatinine Ratio 16 Glucose 79 Calculated Osmolality 272 L Calcium 8.9 Corrected Calcium 9.1 Magnesium 1.6 Total Bilirubin 1.6 H AST 25 ALT 17 Alkaline Phosphatase 97 Total Protein 7.6 Albumin 3.8 Globulin 3.8 H Albumin/Globulin Ratio 1.0 L Quality Measures Quality Measures none Advance care planning discussed with:: patient Assessment & Plan Assessment Current Active Medications: Generic Name Dose Route Start Last Admin Trade Name Freq PRN Reason Stop Dose Admin Acetaminophen 650 mg 12/03/24 20:37 Acetaminophen 325 Mg Tablet PO 01/02/25 20:36 Q6H PRN Fever >100.4 Acetaminophen 650 mg 12/03/24 20:37 Acetaminophen 325 Mg Tablet PO 01/02/25 20:36 Q6H PRN PAIN SCALE 1-3 (mild Hydrocodone Bitart/Acetaminophen 1 tab 12/03/24 20:37 Hydrocodone/Apap 5/325 Tablet PO 12/08/24 20:36 Q4HR PRN PAIN SCALE 4-6 (Moderate Albuterol/Ipratropium 3 ml 12/03/24 20:37 Albuterol/Ipratropium (Duoneb) Rt Trudy 3 Ml Nebu INH 01/03/25 00:59 Q6HRRT PRN SOB or wheezing Carvedilol 6.25 mg 12/04/24 09:00 12/05/24 08:29 Carvedilol 3.125 Mg Tablet PO 01/03/25 08:59 6.25 mg BID CHITRA Administration Dextrose 25 ml 12/05/24 08:59 Dextrose 50%-Water Inj 50 Ml Syringe IV 01/04/25 08:58 Q15MIN PRN BG 50-70 responsive npo pt Dextrose 50 ml 12/05/24 08:59 Dextrose 50%-Water Inj 50 Ml Syringe IV 01/04/25 08:58 Q15MIN PRN BG <50 OR BG <70 & pt unresponsive Glucagon 1 mg 12/05/24 08:58 Glucagon Inj 1 Mg Vial IM Q15MIN PRN BG <70, and no IV access Ondansetron HCl 4 mg 12/03/24 20:37 Ondansetron Inj 2 Mg/Ml Inj 2 Ml IVP 01/02/25 20:36 Q6H PRN NAUSEA OR VOMITING Protocol Pantoprazole Sodium 40 mg 12/03/24 21:00 12/05/24 08:29 Pantoprazole Inj 40 Mg Vial IVP 01/02/25 20:59 40 mg BID CHITRA Administration Polyethylene Glycol/Electrolytes 4,000 ml 12/04/24 17:49 Na Martines/Nahco3/Kelvin/Peg (Golytely) 4,000 Ml Btl PO X1 PRN If pt is not clean after first gallon please start second Sodium Chloride 3 ml 12/03/24 15:27 Sodium Chloride Rt Trudy 0.9% 3 Ml Nebu INH 01/02/25 15:26 PRN PRN SOLN Plan Froilan Perez is an 83-year-old male with past medical history of HFpEF (55 to 60% on 02/2024), CAD s/p stents (on Plavix only), CKD, cirrhosis secondary to hep C, and myelodysplastic syndrome who is admitted for GI bleed. #Acute blood loss anemia #GI bleed #Melena #NSAID use Presents with black starry stools after using daily ibuprofen for pain on top of plavix. Hemoglobin on admission was 8 and previously 9.3 on 11/23/2024. EGD was largely unremarkable and did not reveal source of bleeding and so will prep for colonoscopy. ? GI consulted, appreciate recommendations ? Protonix twice daily ? Golytely prep and colonoscopy planned ? Transfuse if hemoglobin less than 8 given cardiac history #Hyperkalemia Presented with potassium of 5.7. Appears to be chronically hyperkalemic as previous labs between 5.1-5.7. Received albuterol 5 mg x 1 and Kayexalate x 1 in ED. EKG without changes related to hyperkalemia. ? Continue to monitor and address as needed ? Patiromer 8.4 g x1 #Asymptomatic bacteriuria UA was positive bacteria, but patient has no symptoms at this time. No need for antibiotic coverage at this time. #HFpEF (55 to 60% 02/2024) Echo 02/2024 showed EF 55-60%, no significant valuvlopathy. States that he no longer takes diuretics. Not in acute exacerbation. ? Carvedilol 6.25 mg BID #CAD s/p stents (on Plavix) ? Will hold Plavix for now in the setting of possible bleed #History of CKD #History of cirrhosis secondary to hepatitis C Baseline creatinine is around 1.6 and on admission was 1.6 ? Avoid nephrotoxic agents ? Renally dose medications #Neuropathic pain ? Gabapentin 400 mg QID, currently prepping for colonoscopy Health maintenance: Disposition: [facility] bleed Diet: clear liquid diet GI prophylaxis: protonix DVT prophylaxis: SCDs Code: DNR/ DNI ----- Plan discussed with attending physician Dr. Tao Prabhakar MD PGY-1 Internal Medicine Attending Provider Attestation/Addendum I have examined the patient, reviewed labs and imaging findings, discussed the case with the resident(s), and reviewed entered orders. I agree with the plan of care as outlined in this note, with these additional summaries/recommendations: Patient seen at bedside. No acute overnight events. Patient underwent EGD yesterday which revealed normal esophagus, gastritis, and normal duodenum. Source of bleeding remains obscure and patient started on GoLytely prep. He was planned for colonoscopy today but is still not clear & an additional jug of GoLytely ordered. Patient diagnosed with acute blood loss anemia secondary to GI bleed. Hemoglobin was 8 on admission and given prior cardiac history he was transfused 1 unit PRBCs with improvement in hemoglobin. Hgb today 9.1. Gastroenterology following. Patient was also noted to have hyperkalemia on admission possibly secondary to spironolactone which we will hold for now. Hyperkalemia persists and additional temporizing measures given. Follow-up repeat potassium this evening. Patient has history of CAD and will hold Plavix for GI bleed. Patient has history of MDS and following hematology/oncology outpatient. Leukopenia present on hematology panel although it is chronic and relatively at baseline. Patient will follow-up outpatient for continued management of MDS. FREDDY now resolved with IV fluids. Minimal hyperbilirubinemia present on chemistry panel with normal AST, ALT, and alkaline phosphatase. Hyperbilirubinemia likely related to GI bleed and will continue to monitor for for resolution. Patient updated on the plan and in agreement. All questions answered to satisfaction. Please see residents note for additional details and management. Dr. Tao MD
[2024-12-05 13:15] LABS: Potassium 5.4 mMol/L (3.4-5.1)
[2024-12-05] MEDS: NA SU/NAHCO3/KC/PEG (Golytely) 4,000 ML BTL 4000 ML PO (13:24)
[2024-12-05] MEDS: GABAPENTIN 300 MG CAPSULE PO (13:55)
[2024-12-05] MEDS: ALBUTEROL RT 2.5 MG/0.5 ML NEBU 10 MG INH (14:17)
--- NOTE | 2024-12-05 16:23 | ESPR_ITS ---
Documentation for date of: 12/05/24 Subjective Subjective Interval history: Hemoglobin hematocrit 9.1 and 27.3 Patient is scheduled for a colonoscopy He is not clear additional GoLytely Exam Vital Signs Temp Pulse Resp BP Pulse Ox O2 Del Method O2 Flow Rate 97.0 F 76 18 153/81 H 98 Room Air 3 12/05/24 12:00 12/05/24 14:18 12/05/24 14:18 12/05/24 12:00 12/05/24 14:18 12/05/24 12:00 12/04/24 19:22 Objective Labs 12/05/24 05:52 12/05/24 12:35 Labs: Laboratory Results - last 24 hr 12/05/24 12/05/24 05:52 12:35 WBC 2.7 L RBC 2.93 L Hgb 9.1 L Hct 27.3 L MCV 93 MCH 31.1 MCHC 33.3 RDW Std Deviation 68.5 H Plt Count 202 Neut % (Auto) 46 Lymph % (Auto) 24 [place] % (Auto) 22 H Eos % (Auto) 0 Baso % (Auto) 1 Neut # (Auto) 1.3 L Lymph # (Auto) 0.6 L [place] # (Auto) 0.6 Eos # (Auto) 0.0 Baso # (Auto) 0.0 Immature Gran # (Auto) 0.20 H Absolute Nucleated RBC 0.00 Immature Gran % 7 H Nucleated RBC % 0 Sodium 135 L Potassium 6.0 H D 5.4 H D Chloride 101 Carbon Dioxide 25.0 Anion Gap 9 BUN 21 Creatinine 1.3 Estim Creat Clear Calc 40.9 L eGFR 55 L BUN/Creatinine Ratio 16 Glucose 79 Calculated Osmolality 272 L Calcium 8.9 Corrected Calcium 9.1 Magnesium 1.6 Total Bilirubin 1.6 H AST 25 ALT 17 Alkaline Phosphatase 97 Total Protein 7.6 Albumin 3.8 Globulin 3.8 H Albumin/Globulin Ratio 1.0 L Impressions Impression: Occult GI bleeding Additional GoLytely Colonoscopy postponed to tomorrow Assessment & Plan A&P Narrative # Melena combination of ibuprofen induced gastric injury complicated by the use of Plavix Low hemoglobin hematocrit complicated by myelodysplastic syndrome Plan Clear liquid diet till 12 midnight IV Protonix Serial CBC Consent obtained for fiberoptic esophagogastroduodenoscopy with possible biopsy possible therapeutic intervention under intravenous moderate sedation N.p.o. midnight tonight Other medical problems include Chronic liver disease secondary to hepatitis C Coronary artery status post PCI Myelodysplastic syndrome requiring frequent blood transfusions Thank you very much for the opportunity to participate in care of this patient Time Spent With Patient Time: Total time spent is greater than 50% in coordination of care (as documented) at patient's floor/unit and/or counseling patient:
[2024-12-05 19:29] LABS: Potassium 4.6 mMol/L (3.4-5.1)
[2024-12-05] MEDS: DEXTROSE 5%-NS 1,000 ML 75 ML IV (23:19)
[2024-12-06] VITALS (26 sets, daily range): BP systolic 115–171; BP diastolic 54–93; PULSE 65–79; RESP 12–95; TEMP 36.1–36.7; O2SAT 93–100
[2024-12-06 05:54] LABS: Basophils % (Auto) 0 % (0-2.5); Eosinophils % (Auto) 0 % (0-10); Hematocrit 26.2 % (41.0-53.0); Hemoglobin 8.9 g/dL (13.5-16.0); Immature Granulocytes % (Auto) 3 % (0-0); Immature Granulocytes Auto 0.07 Thou/mm3 (0.00-0.00); Lymphocytes # (Auto) 0.5 Thou/mm3 (1.0-4.8); Lymphocytes % (Auto) 22 % (10-50); Mean Corpuscular Volume 91 fL (80-100); Monocytes # (Auto) 0.6 Thou/mm3 (0.0-0.8); Monocytes % (Auto) 26 % (0-12); Neutrophils # (Auto) 1.1 Thou/mm3 (1.8-7.7); Neutrophils % (Auto) 49 % (37-80); Nucleated Red Blood Cell % 0 /100 WBC (0); Platelet Count 210 Thou/mm3 (140-440); RDW Standard Deviation 64.5 fL (35.1-43.9); Red Blood Count 2.87 Miln/mm3 (4.50-5.90)
[2024-12-06 06:15] LABS: White Blood Count 2.3 Thou/mm3 (3.8-10.6)
[2024-12-06 06:40] LABS: Alanine Aminotransferase 16 U/L (10-49); Albumin, Serum 3.6 gm/dL (3.4-4.8); Albumin/Globulin Ratio 0.8 (1.2-2.2); Alkaline Phosphatase 92 U/L (46-116); Anion Gap 9 (7-16); Aspartate Amino Transferase 24 U/L (0-34); BUN/Creatinine Ratio 14 Ratio (12-20); Bilirubin,Total 1.8 mg/dL (0.3-1.2); Blood Urea Nitrogen 18 mg/dL (9-23); Calcium 8.5 mg/dL (8.3-10.6); Calcium (Corrected) 8.8 mg/dL (8.5-10.1); Carbon Dioxide 22.5 mMol/L (20.0-31.0); Chloride 106 mMol/L (98-107); Creatinine (Component) 1.3 mg/dL (0.6-1.3); Estimated Creatinine Clearance 40.9 mL/min (>60); Globulin 4.3 gm/dL (2.3-3.5); Glucose 97 mg/dL (74-106); Magnesium 1.6 mg/dL (1.6-2.6); Osmolality,Calculated 275 (275-295); Potassium 4.7 mMol/L (3.4-5.1); Sodium 137 mMol/L (136-145); Total Protein 7.9 gm/dL (5.7-8.2); eGFR 55 See Note
[2024-12-06] MEDS: PANTOPRAZOLE INJ 40 MG VIAL IVP ×2 (08:37→20:12)
[2024-12-06] MEDS: carVEDILOL 3.125 MG TABLET 6.25 MG PO ×2 (08:37→17:40)
--- NOTE | 2024-12-06 11:07 | ESPR_ITS ---
Documentation for date of: 12/06/24 Subjective Subjective Interval history: Patient seen and examined at bedside. No acute overnight events. Labs and vitals were reviewed. Hemoglobin is stable 8.9, CMP unremarkable. Patient is on bowel preparation with GoLytely, pending colonoscopy. Exam Vital Signs Temp Pulse Resp BP Pulse Ox O2 Del Method O2 Flow Rate 97.0 F 75 18 142/71 H 95 Room Air 3 12/06/24 07:58 12/06/24 10:43 12/06/24 10:43 12/06/24 08:37 12/06/24 10:43 12/06/24 03:30 12/04/24 19:22 Narrative Exam General: AOx3, no acute distress, able to speak full sentences, appears pale. Tympanic HEENT: NC/AT, mucous membranes moist, bilateral sclera anicteric Cardiovascular: regular rate and rhythm, S1/S2 present, no murmurs appreciated Pulmonary: clear to auscultation bilaterally, no rales/rhonchi/wheezes Abdominal: soft, non-tender, non-distended, no rebound/guarding, normal bowel sounds present Musculoskeletal: normal ROM, no peripheral edema Skin: warm and dry, intact, no rashes Neuro: CN II-XII intact, no focal deficits Objective Labs 12/07/24 05:06 12/07/24 05:06 Labs: Laboratory Results - last 24 hr 12/05/24 12/05/24 12/06/24 12:35 18:27 04:46 WBC 2.3 L RBC 2.87 L Hgb 8.9 L Hct 26.2 L MCV 91 MCH 31.0 MCHC 34.0 RDW Std Deviation 64.5 H Plt Count 210 Neut % (Auto) 49 Lymph % (Auto) 22 [place] % (Auto) 26 H Eos % (Auto) 0 Baso % (Auto) 0 Neut # (Auto) 1.1 L Lymph # (Auto) 0.5 L [place] # (Auto) 0.6 Eos # (Auto) 0.0 Baso # (Auto) 0.0 Immature Gran # (Auto) 0.07 H Absolute Nucleated RBC 0.00 Immature Gran % 3 H Nucleated RBC % 0 Sodium 137 Potassium 5.4 H D 4.6 D 4.7 Chloride 106 Carbon Dioxide 22.5 Anion Gap 9 BUN 18 Creatinine 1.3 Estim Creat Clear Calc 40.9 L eGFR 55 L BUN/Creatinine Ratio 14 Glucose 97 Calculated Osmolality 275 Calcium 8.5 Corrected Calcium 8.8 Magnesium 1.6 Total Bilirubin 1.8 H AST 24 ALT 16 Alkaline Phosphatase 92 Total Protein 7.9 Albumin 3.6 Globulin 4.3 H Albumin/Globulin Ratio 0.8 L Quality Measures Quality Measures none Advance care planning discussed with:: patient Assessment & Plan Assessment Current Active Medications: Generic Name Dose Route Start Last Admin Trade Name Freq PRN Reason Stop Dose Admin Acetaminophen 650 mg 12/03/24 20:37 Acetaminophen 325 Mg Tablet PO 01/02/25 20:36 Q6H PRN Fever >100.4 Acetaminophen 650 mg 12/03/24 20:37 Acetaminophen 325 Mg Tablet PO 01/02/25 20:36 Q6H PRN PAIN SCALE 1-3 (mild Hydrocodone Bitart/Acetaminophen 1 tab 12/03/24 20:37 Hydrocodone/Apap 5/325 Tablet PO 12/08/24 20:36 Q4HR PRN PAIN SCALE 4-6 (Moderate Albuterol/Ipratropium 3 ml 12/03/24 20:37 Albuterol/Ipratropium (Duoneb) Rt Trudy 3 Ml Nebu INH 01/03/25 00:59 Q6HRRT PRN SOB or wheezing Carvedilol 6.25 mg 12/04/24 09:00 12/06/24 08:37 Carvedilol 3.125 Mg Tablet PO 01/03/25 08:59 6.25 mg BID CHITRA Administration Dextrose 25 ml 12/05/24 08:59 Dextrose 50%-Water Inj 50 Ml Syringe IV 01/04/25 08:58 Q15MIN PRN BG 50-70 responsive npo pt Dextrose 50 ml 12/05/24 08:59 Dextrose 50%-Water Inj 50 Ml Syringe IV 01/04/25 08:58 Q15MIN PRN BG <50 OR BG <70 & pt unresponsive Glucagon 1 mg 12/05/24 08:58 Glucagon Inj 1 Mg Vial IM Q15MIN PRN BG <70, and no IV access Dextrose/Sodium Chloride 1,000 mls @ 75 mls/hr 12/05/24 22:00 12/05/24 23:19 D5-Ns IV 12/06/24 21:59 75 mls/hr .[id number] CHITRA Administration Ondansetron HCl 4 mg 12/03/24 20:37 Ondansetron Inj 2 Mg/Ml Inj 2 Ml IVP 01/02/25 20:36 Q6H PRN NAUSEA OR VOMITING Protocol Pantoprazole Sodium 40 mg 12/03/24 21:00 12/06/24 08:37 Pantoprazole Inj 40 Mg Vial IVP 01/02/25 20:59 40 mg BID CHITRA Administration Polyethylene Glycol/Electrolytes 4,000 ml 12/04/24 17:49 Na Martines/Nahco3/Kelvin/Peg (Golytely) 4,000 Ml Btl PO X1 PRN If pt is not clean after first gallon please start second Sodium Chloride 3 ml 12/03/24 15:27 Sodium Chloride Rt Trudy 0.9% 3 Ml Nebu INH 01/02/25 15:26 PRN PRN SOLN Plan Froilan Perez is an 83-year-old male with past medical history of HFpEF (55 to 60% on 02/2024), CAD s/p stents (on Plavix only), CKD, cirrhosis secondary to hep C, and myelodysplastic syndrome who is admitted for GI bleed. #Acute blood loss anemia #GI bleed #Melena #NSAID use Presents with black starry stools after using daily ibuprofen for pain on top of plavix. Hemoglobin on admission was 8 and previously 9.3 on 11/23/2024. EGD was largely unremarkable and did not reveal source of bleeding and so will prep for colonoscopy. ? GI consulted, appreciate recommendations ? Protonix twice daily ? Golytely prep and colonoscopy planned ? Transfuse if hemoglobin less than 8 given cardiac history #HFpEF (55 to 60% 02/2024) Echo 02/2024 showed EF 55-60%, no significant valuvlopathy. States that he no longer takes diuretics. Not in acute exacerbation. ? Carvedilol 6.25 mg BID #CAD s/p stents (on Plavix) ? Will hold Plavix for now in the setting of possible bleed #History of CKD #History of cirrhosis secondary to hepatitis C Baseline creatinine is around 1.6 and on admission was 1.6 ? Avoid nephrotoxic agents ? Renally dose medications #Neuropathic pain ? Gabapentin 400 mg QID, currently prepping for colonoscopy #MDS #Pancytopenia secondary due to above -Follow-up outpatient with heme #Hyperkalemia resolved Presented with potassium of 5.7. Appears to be chronically hyperkalemic as previous labs between 5.1-5.7. Received albuterol 5 mg x 1 and Kayexalate x 1 in ED. EKG without changes related to hyperkalemia. Patiromer 8.4 g x1 ? Continue to monitor and address as needed #Asymptomatic bacteriuria UA was positive bacteria, but patient has no symptoms at this time. No need for antibiotic coverage at this time. Health maintenance: Disposition: Patient admitted to [facility] for GI bleed Diet: clear liquid diet, GoLytely prep GI prophylaxis: protonix DVT prophylaxis: SCDs Code: DNR/ DNI Patient care was discussed with attending physician Dr. Tao Bishop MD PGY-2----- Attending Provider Attestation/Addendum I have examined the patient, reviewed labs and imaging findings, discussed the case with the resident(s), and reviewed entered orders. I agree with the plan of care as outlined in this note, with these additional summaries/recommendations: Patient seen at bedside. No acute overnight events. Patient completed GoLytely and per nurse, his stool is now clear. Patient will go for colonoscopy today with gastroenterology. Patient underwent EGD 12/04/24 which revealed normal esophagus, gastritis, and normal duodenum. Patient diagnosed with acute blood loss anemia secondary to GI bleed. Hemoglobin was 8 on admission and given prior cardiac history he was transfused 1 unit PRBCs with improvement in hemoglobin. Hgb today 8.9. Gastroenterology following. Patient was also noted to have hyperkalemia on admission possibly secondary to spironolactone which we will hold for now. Hyperkalemia now resolved. Patient has history of CAD and will hold Plavix for GI bleed. Patient has history of MDS and following hematology/oncology outpatient. Leukopenia present on hematology panel although it is chronic and relatively at baseline. Patient will follow-up outpatient for continued management of MDS. FREDDY now resolved with IV fluids. Minimal hyperbilirubinemia present on chemistry panel with normal AST, ALT, and alkaline phosphatase. Hyperbilirubinemia likely related tohx of cirrhosis from previous hepatitis C infection. Patient updated on the plan and in agreement. All questions answered to satisfaction. Please see residents note for additional details and management. Dr. Tao MD
--- NOTE | 2024-12-06 13:12 | PC.SS ---
Addendum entered by Katelynn Fox 12/06/24 13:14: Pt will return home upon d/c. Jyoti Reddy is his surrogate decision maker, [phone] Original Note: Per rounding meeting, pt has a GI bleed. Pending colonoscopy. No d/c date at this time.
[2024-12-06] MEDS: DEXTROSE 5%-NS 1,000 ML 75 ML IV (14:01)
--- NOTE | 2024-12-06 15:59 | SUR.PHASEI ---
pt received from OR in recovery bay 1. pt asleep but responds to voice, breathing unlabored on room air. v/s stable. report received from Jeannette GRAY.
--- NOTE | 2024-12-06 16:26 | SUR.PHASEI ---
pt awake and alert, breathing unlabored on room air. v/s stable. report called to Kathy GRAY. pt will be transferred to room at this time.
[2024-12-06] MEDS: ALBUTEROL RT 2.5 MG/0.5 ML NEBU 10 MG INH (19:05)
[2024-12-07] VITALS (8 sets, daily range): BP systolic 121–147; BP diastolic 67–70; PULSE 71–83; RESP 16–97; TEMP 36.5–36.6; O2SAT 95–97
[2024-12-07 06:16] LABS: Basophils % (Auto) 0 % (0-2.5); Eosinophils % (Auto) 1 % (0-10); Hematocrit 25.6 % (41.0-53.0); Immature Granulocytes % (Auto) 0 % (0-0); Immature Granulocytes Auto 0.01 Thou/mm3 (0.00-0.00); Lymphocytes # (Auto) 0.6 Thou/mm3 (1.0-4.8); Lymphocytes % (Auto) 25 % (10-50); Mean Corpuscular HGB Conc 32.4 g/dl (31.0-37.0); Mean Corpuscular Hemoglobin 30.7 pg (25.0-35.0); Mean Corpuscular Volume 95 fL (80-100); Monocytes # (Auto) 0.6 Thou/mm3 (0.0-0.8); Monocytes % (Auto) 25 % (0-12); Neutrophils # (Auto) 1.1 Thou/mm3 (1.8-7.7); Neutrophils % (Auto) 49 % (37-80); Nucleated Red Blood Cell % 0 /100 WBC (0); Platelet Count 189 Thou/mm3 (140-440); RDW Standard Deviation 66.4 fL (35.1-43.9)
[2024-12-07 06:35] LABS: Alanine Aminotransferase 13 U/L (10-49); Albumin, Serum 3.4 gm/dL (3.4-4.8); Albumin/Globulin Ratio 0.9 (1.2-2.2); Alkaline Phosphatase 79 U/L (46-116); Anion Gap 6 (7-16); Aspartate Amino Transferase 19 U/L (0-34); BUN/Creatinine Ratio 18 Ratio (12-20); Bilirubin,Total 1.2 mg/dL (0.3-1.2); Blood Urea Nitrogen 21 mg/dL (9-23); Calcium 8.7 mg/dL (8.3-10.6); Calcium (Corrected) 9.2 mg/dL (8.5-10.1); Carbon Dioxide 21.6 mMol/L (20.0-31.0); Chloride 109 mMol/L (98-107); Creatinine (Component) 1.2 mg/dL (0.6-1.3); Estimated Creatinine Clearance 44.3 mL/min (>60); Globulin 3.7 gm/dL (2.3-3.5); Glucose 111 mg/dL (74-106); Osmolality,Calculated 277 (275-295); Potassium 4.2 mMol/L (3.4-5.1); Sodium 137 mMol/L (136-145); Total Protein 7.1 gm/dL (5.7-8.2); eGFR > 60 See Note
[2024-12-07 06:40] LABS: Hemoglobin 8.3 g/dL (13.5-16.0); White Blood Count 2.3 Thou/mm3 (3.8-10.6)
--- NOTE | 2024-12-07 08:11 | PC.NURSE ---
POC DISCUSSED WITH DR. AMIRA MD WAS MADE AWARE PT IS ON PLAVIX AND IF IT COULD BE RESUME. MD TO HOLD DUE TO H&H TRENDING DOWN. OTHER MEDICATIONS WOULD BE RESUME.
[2024-12-07] MEDS: carVEDILOL 3.125 MG TABLET 6.25 MG PO (08:19)
[2024-12-07] MEDS: GABAPENTIN 100 MG CAPSULE 400 MG PO (08:20)
[2024-12-07] MEDS: PANTOPRAZOLE INJ 40 MG VIAL IVP (08:21)
[2024-12-07 11:04] LABS: Band Neutrophils (Manual) 2 % (0-6); Eosinophils (Manual) 2 % (0-4); Lymphocytes (Manual) 24 % (20-44); Monocytes (Manual) 12 % (2-9); Neutrophils (Manual) 60 % (50-70)
--- NOTE | 2024-12-07 12:17 | PC.NURSE ---
PATIENT WAITING FOR HIS RIDE HOME.
--- NOTE | 2024-12-07 12:26 | ESDS_ITS ---
Planned Discharge Date 12/07/24 DS: Providers Provider Date of admission: 12/03/24 20:37 Primary care physician: Physician No Primary/Family Admitting Provider: Jarvis Augustin MD Attending Provider on Admission: Darren Burger MD Consults: 12/03/24 20:41 Consult to Gastroenterology Routine Comment: Consulting Provider: Vashti Ocampo Attending Provider on DC: Elton Prabhakar MD Discharging Provider: Elton Prabhakar MD DS: Diagnosis Problem List Completed Was Problem List Reviewed/Reconciled?: Yes Hospital Course Hospital Course Hospital course: Froilan Perez is an 83-year-old male with past medical history of HFpEF (55 to 60% on 02/2024), CAD s/p stents (on Plavix only), CKD, cirrhosis secondary to hep C, and myelodysplastic syndrome who is admitted for GI bleed. Presented with black, tarry stools approximately 5 days prior to admission while on plavix and was also noted to be taking 4 pills of advil due to lower extremity pain secondary to neuropathy. In the ED, vital signs showed hemodynamic stability, hemoglobin was 8.1 and given cardiac history he was given 1 unit PRBC that increased hemoglobin to 9.3. He was started on Protonix twice daily and GI was consulted. He eventually underwent an EGD but did not show a source of bleeding and thus was started on GoLytely prep for colonoscopy, which also did not show a clear source of bleeding. Given history of black, tarry stools in setting of Plavix and Advil suspicion for upper GI bleed remains high. However, throughout hospitalization hemoglobin remained relatively stable and GI in agreement to restart clopidogrel upon discharge with close follow-up with GI. Otherwise, hospital course remained uncomplicated and vital signs remained stable, CBC showed relatively stable hemoglobin, and CHEM panel showed resolved hyperkalemia and FREDDY. Diagnoses during admission: #Acute blood loss anemia #GI bleed in setting of NSAID use and plavix #Melena #HFpEF (55 to 60% 02/2024) #CAD s/p stents (on Plavix) #History of CKD #History of cirrhosis secondary to hepatitis C #Neuropathic pain #MDS #Pancytopenia secondary due to above #Hyperkalemia resolved #Asymptomatic bacteriuria Discharge instructions: ? Your spironolactone was decreased to 12.5 mg once daily ? Continue taking all other home medications as prescribed ? Follow-up with formal service waiter, Dr. Ocampo, within 1-2 weeks of discharge ? Follow-up with PCP within 1-2 weeks of discharge ? If you do not have a PCP, you can follow-up at the [facility] (you can call [phone] to make an appointment) ? If you wish to follow-up with Dr. Prabhakar, schedule appointment on Saturday afternoons ? Return to ED if symptoms worsen or recur (i.e. black stools, bright red blood per rectum) ----- Plan discussed with attending physician Dr. Tao Prabhakar MD PGY-1 Internal Medicine Time Spent with Patient Time attestation: Total time spent providing and/or coordinating discharge services: Time spent: Greater than 30 minutes Exam Vital Signs Temp Pulse Resp BP Pulse Ox O2 Del Method O2 Flow Rate 98 F 83 18 147/70 H 95 Room Air 3 12/07/24 08:00 12/07/24 08:22 12/07/24 08:00 12/07/24 08:22 12/07/24 08:00 12/07/24 08:00 12/06/24 15:50 Narrative Exam General: AOx3, no acute distress, able to speak full sentences, appears pale. Tympanic HEENT: NC/AT, mucous membranes moist, bilateral sclera anicteric Cardiovascular: regular rate and rhythm, S1/S2 present, no murmurs appreciated Pulmonary: clear to auscultation bilaterally, no rales/rhonchi/wheezes Abdominal: soft, non-tender, non-distended, no rebound/guarding, normal bowel sounds present Musculoskeletal: normal ROM, no peripheral edema Skin: warm and dry, intact, no rashes Neuro: CN II-XII intact, no focal deficits Discharge Plan Plan Patient Disposition: HOME (Self Care) Care Plan Goals: ? Your spironolactone was decreased to 12.5 mg once daily ? Continue taking all other home medications as prescribed ? Follow-up with formal service waiter, Dr. Ocampo, within 1-2 weeks of discharge ? Follow-up with PCP within 1-2 weeks of discharge ? If you do not have a PCP, you can follow-up at the [facility] (you can call [phone] to make an appointment) ? If you wish to follow-up with Dr. Prabhakar, schedule appointment on Saturday afternoons ? Return to ED if symptoms worsen or recur (i.e. black stools, bright red blood per rectum) Prescriptions/Referrals Prescriptions/Med Rec: New spironolactone 25 mg tablet 12.5 mg PO QDAY 30 Days Qty: 15 0RF Continued pantoprazole 40 mg Tablet,Delayed Release (Dr/Ec) 40 mg PO QDAY clopidogrel 75 mg tablet 75 mg PO QDAY Patient Comments: TAKE 1 TABLET BY MOUTH ONCE DAILY carvedilol 6.25 mg tablet 1 tab PO BID Patient Comments: TAKE 1 TABLET BY MOUTH TWICE DAILY WITH FOOD FOR HEART gabapentin 400 mg capsule 400 cap PO QID Patient Comments: TAKE 1 CAPSULE BY MOUTH 4 TIMES DAILY spironolactone 25 mg Tablet 25 mg PO QDAY Discontinued furosemide 40 mg tablet 40 mg PO BID 30 Days Qty: 60 0RF Referrals: No Primary/Family,Physician [Primary Care Provider] - Patient/Caregiver Discharge Instructions Education Materials: Bleeding Gastrointestinal Print Language: Portuguese Stand Alone Forms: Rani Award Info., Patient Portal Info Letter Discharge Order Discharge Orders: Discharge (Routine); Ordered 12/07/24 Ordered By: Elton Prabhakar Quality Discharge Quality Measures VTE prophylaxis Attestestation MD Attestation I have examined the patient, reviewed labs and imaging findings, discussed the case with the resident(s), and reviewed entered orders. I agree with the plan of care as outlined in this note. Time Spent: [address] Tao MD
--- NOTE | 2024-12-07 19:51 | ESPR_ITS ---
Documentation for date of: 12/07/24 Subjective Subjective Interval history: Late entry for the note Case discussed with the internal medicine team Patient has anemia from the underlying moderate dysplastic syndrome No causes of acute GI bleed found No need for a capsule endoscopy Okay to discharge patient home to be followed by the PCP and the oncology team and hematology team Exam Vital Signs Temp Pulse Resp BP Pulse Ox O2 Del Method O2 Flow Rate 97.7 F 75 18 136/67 H 95 Room Air 3 12/07/24 12:00 12/07/24 12:00 12/07/24 12:00 12/07/24 12:00 12/07/24 12:00 12/07/24 12:00 12/06/24 15:50 Objective Labs 12/07/24 05:06 12/07/24 05:06 Labs: Laboratory Results - last 24 hr 12/07/24 05:06 WBC 2.3 L RBC 2.70 L Hgb 8.3 L Hct 25.6 L MCV 95 MCH 30.7 MCHC 32.4 RDW Std Deviation 66.4 H Plt Count 189 Neut % (Auto) 49 Lymph % (Auto) 25 [place] % (Auto) 25 H Eos % (Auto) 1 Baso % (Auto) 0 Neut # (Auto) 1.1 L Lymph # (Auto) 0.6 L [place] # (Auto) 0.6 Eos # (Auto) 0.0 Baso # (Auto) 0.0 Immature Gran # (Auto) 0.01 H Absolute Nucleated RBC 0.00 Immature Gran % 0 Neutrophils % (Manual) 60 Monocytes % (Manual) 12 H Eosinophils % (Manual) 2 Nucleated RBC % 0 Band Neutrophils 2 Lymphocytes (Manual) 24 Sodium 137 Potassium 4.2 D Chloride 109 H Carbon Dioxide 21.6 Anion Gap 6 L BUN 21 Creatinine 1.2 Estim Creat Clear Calc 44.3 L eGFR > 60 BUN/Creatinine Ratio 18 Glucose 111 H Calculated Osmolality 277 Calcium 8.7 Corrected Calcium 9.2 Total Bilirubin 1.2 D AST 19 ALT 13 Alkaline Phosphatase 79 Total Protein 7.1 Albumin 3.4 Globulin 3.7 H Albumin/Globulin Ratio 0.9 L Impressions Impression: Gastritis Diverticulosis left colon Myelodysplastic syndrome Plan As under HPI Assessment & Plan A&P Narrative # Melena combination of ibuprofen induced gastric injury complicated by the use of Plavix Low hemoglobin hematocrit complicated by myelodysplastic syndrome Plan Clear liquid diet till 12 midnight IV Protonix Serial CBC Consent obtained for fiberoptic esophagogastroduodenoscopy with possible biopsy possible therapeutic intervention under intravenous moderate sedation N.p.o. midnight tonight Other medical problems include Chronic liver disease secondary to hepatitis C Coronary artery status post PCI Myelodysplastic syndrome requiring frequent blood transfusions Thank you very much for the opportunity to participate in care of this patient Time Spent With Patient Time: Total time spent is greater than 50% in coordination of care (as documented) at patient's floor/unit and/or counseling patient:
== END 2024-12-07 12:38 | disposition home or self-care (01) | DRG 378 ==
LOC: SERX 16:43 → SERHOLD 20:52 → S3SX 23:24
PROVIDERS: Nurse Practitioner Family; Specialist; Student in an Organized Health Care Education/Training Program; Admitting Provider Internal Medicine; Emergency Provider Emergency Medicine; Visit Provider Student in an Organized Health Care Education/Training Program
PROC: (CPT 43239; principal; 2024-12-04 16:00)
PROC: 0DJD8ZZ Inspection of Lower Intestinal Tract, Via Natural or Artificial Opening Endoscopic (ICD-10-PCS; CPT 45378; principal; 2024-12-06 15:00)
DX: K57.31 Diverticulosis of large intestine without perforation or abscess with bleeding (principal); D61.818 Other pancytopenia; I50.32 Chronic diastolic (congestive) heart failure; N17.9 Acute kidney failure, unspecified; D62 Acute posthemorrhagic anemia; E87.5 Hyperkalemia; N18.9 Chronic kidney disease, unspecified; K74.60 Unspecified cirrhosis of liver; I25.10 Atherosclerotic heart disease of native coronary artery without angina pectoris; Z95.5 Presence of coronary angioplasty implant and graft; D46.9 Myelodysplastic syndrome, unspecified; Z87.891 Personal history of nicotine dependence; G57.93 Unspecified mononeuropathy of bilateral lower limbs; R82.71 Bacteriuria; B18.2 Chronic viral hepatitis C; T39.315A Adverse effect of propionic acid derivatives, initial encounter; K59.00 Constipation, unspecified; K64.9 Unspecified hemorrhoids; Z66 Do not resuscitate; Z79.02 Long term (current) use of antithrombotics/antiplatelets; Z79.899 Other long term (current) drug therapy
CPT/HCPCS: 36415; 36430; 71045; 80053; 81001; 83735; 84132; 84484; 85014; 85018; 85025; 85610; 85730; 86850; 86900; 86901; 86923; 87081; 93005; 93225; 94640; 94644; 99285; J1200; J1815; J2250; J2470; J3010; J3490; J7042; P9016; A9270

== ENCOUNTER → 2024-12-03 | Outpatient (CLI) | payer MEDICARE, SELFPAY ==
[2024-12-03 08:24] LABS: Basophils % (Auto) 0 % (0-2.5); Eosinophils % (Auto) 1 % (0-10); Hematocrit 24.1 % (41.0-53.0); Immature Granulocytes % (Auto) 4 % (0-0); Immature Granulocytes Auto 0.12 Thou/mm3 (0.00-0.00); Lymphocytes # (Auto) 0.9 Thou/mm3 (1.0-4.8); Lymphocytes % (Auto) 30 % (10-50); Mean Corpuscular HGB Conc 33.6 g/dl (31.0-37.0); Mean Corpuscular Hemoglobin 31.3 pg (25.0-35.0); Mean Corpuscular Volume 93 fL (80-100); Monocytes # (Auto) 0.8 Thou/mm3 (0.0-0.8); Monocytes % (Auto) 25 % (0-12); Neutrophils # (Auto) 1.2 Thou/mm3 (1.8-7.7); Neutrophils % (Auto) 39 % (37-80); Nucleated Red Blood Cell % 0 /100 WBC (0); Platelet Count 181 Thou/mm3 (140-440); RDW Standard Deviation 70.8 fL (35.1-43.9); Red Blood Count 2.59 Miln/mm3 (4.50-5.90)
[2024-12-03 08:40] LABS: Hemoglobin 8.1 g/dL (13.5-16.0)
[2024-12-03 08:50] LABS: Alanine Aminotransferase 23 U/L (10-49); Albumin, Serum 3.8 gm/dL (3.4-4.8); Albumin/Globulin Ratio 0.9 (1.2-2.2); Alkaline Phosphatase 96 U/L (46-116); Anion Gap 6 (7-16); Aspartate Amino Transferase 30 U/L (0-34); BUN/Creatinine Ratio 15 Ratio (12-20); Bilirubin,Total 0.7 mg/dL (0.3-1.2); Blood Urea Nitrogen 24 mg/dL (9-23); Calcium 8.9 mg/dL (8.3-10.6); Calcium (Corrected) 9.1 mg/dL (8.5-10.1); Carbon Dioxide 24.4 mMol/L (20.0-31.0); Chloride 104 mMol/L (98-107); Creatinine (Component) 1.6 mg/dL (0.6-1.3); Globulin 4.2 gm/dL (2.3-3.5); Glucose 84 mg/dL (74-106); Magnesium 1.8 mg/dL (1.6-2.6); Osmolality,Calculated 271 (275-295); Potassium 5.5 mMol/L (3.4-5.1); Sodium 134 mMol/L (136-145); eGFR 42 See Note
== END | disposition home or self-care (01) ==
PROVIDERS: PCP Internal Medicine; Referring Provider Internal Medicine; Visit Provider Internal Medicine
DX: I50.20 Unspecified systolic (congestive) heart failure (principal); D75.81 Myelofibrosis; N18.9 Chronic kidney disease, unspecified; J18.9 Pneumonia, unspecified organism
CPT/HCPCS: 36415; 80053; 83735; 85025

== ENCOUNTER 2025-01-14 05:43 | Emergency (ER) | payer MEDICARE, SELFPAY ==
[2025-01-14] VITALS (13 sets, daily range): BP systolic 102–153; BP diastolic 49–91; PULSE 62–98; RESP 16–22; TEMP 36.5–36.7; O2SAT 92–99; BMI 19.0
--- NOTE | 2025-01-14 05:48 | EKG_ITS ---
[facility] Test Date: 2025-01-14 Pat Name: SAAD MOLINA Department: Room: - Gender: Male [employer] Supervisor: : 1940 Requested By: Juan Martines Order Number: [id number] Reading MD: Juan Martines Measurements Intervals [place] Rate: 76 P: 0 SD: 191 QRS: -24 QRSD: 94 T: 60 QT: 381 QTc: 429 Interpretive Statements SINUS RHYTHM WITH SINUS ARRHYTHMIA BORDERLINE LEFT AXIS DEVIATION [QRS AXIS < -20] NONSPECIFIC T-WAVE ABNORMALITY Compared to ECG 12/03/2024 21:12:07 T-wave abnormality now present /store/S0/[id number]/[id number].pdf
--- NOTE | 2025-01-14 06:08 | EDRME_ITS ---
Rapid Medical Screening Exam [facility] Arrival date/time: 01/14/25 05:43 CC progressive worsening exertional dyspnea HPI ongoing for the past week, denies chest pain no shortness of breath at rest or laying flat intermittent cough. Denies fever chest pain. Chief Complaint: Shortness of Breath/Dyspnea Time Seen by Provider: 01/14/25 06:08 Vital signs: Vital Signs Temperature 98.1 F 01/14/25 05:52 Pulse Rate 81 01/14/25 05:52 Respiratory Rate 19 01/14/25 05:52 Blood Pressure 105/52 L 01/14/25 05:52 Pulse Oximetry (%) 92 L 01/14/25 05:52 Oxygen Delivery Method Room Air 01/14/25 05:52
--- NOTE | 2025-01-14 06:09 | XR_ITS ---
Examination: AP chest single view TECHNIQUE: AP portable upright chest single view Date and time: January 14, 2025 at December 03, 2024 INDICATIONS: Shortness of breath today. FINDINGS: COPD with hyperexpansion. Stable pleural parenchymal scarring throughout both hemithoraces Normal heart size No interval pneumonia. Prominent osteopenia IMPRESSION: COPD with moderate hyperexpansion Stable pleural parenchymal scarring throughout both hemithoraces
--- NOTE | 2025-01-14 06:34 | PD.EDSOB ---
ED SOB =RME/HPI General Chief Complaint: Shortness of Breath/Dyspnea Stated Complaint: SOB Time Seen by Provider: 01/14/25 06:08 Arrival date/time: 01/14/25 05:43 RME / HPI RME / HPI Narrative: 01/14/25 05:43 CC progressive worsening exertional dyspnea HPI ongoing for the past week, denies chest pain no shortness of breath at rest or laying flat intermittent cough. Denies fever chest pain. DR. MOORE MAIN ED EVALUATION: 84-year-old male presents to the Emergency Department accompanied by his with complaint of shortness of breath. He is not on home oxygen and notes a little dry cough, which he states is his baseline. Denies fever, chills, chest pain, or recent illness. Past medical history includes anemia, chronic back pain, chronic bilateral leg pain, and recent GI bleed, for which Dr. John discontinued his blood thinners. He has a scheduled echocardiogram follow-up with cardiology. He is a former smoker who quit 39 years ago. Related Data Home Medications ?Medication ?Instructions ?Recorded ?Confirmed pantoprazole 40 mg tablet,delayed 40 mg PO QDAY 02/07/21 12/04/24 release clopidogrel 75 mg tablet 75 mg PO QDAY 09/22/21 12/03/24 carvedilol 6.25 mg tablet 1 tab PO BID 11/08/21 12/03/24 gabapentin 400 mg capsule 400 cap PO QID 11/10/21 12/03/24 spironolactone 25 mg tablet 25 mg PO QDAY 04/15/22 12/03/24 Allergies Allergy/AdvReac Type Severity Reaction Status Date / Time No Known Allergies Allergy Verified 01/14/25 05:49 Review of Systems Review of Systems Systems Reviewed: All systems reviewed, normal except as documented Past Medical History Past Medical History CARDIAC: Positive Cardiac Disorders, Congestive Heart Failure, Edema and Hypertension RESPIRATORY: Positive Chronic Obstructive Pulmonary Disease (COPD), Asthma, Pneumonia and Smoking GENITOURINARY: Positive Genitourinary Disorders MUSCULOSKELETAL: Positive Musculoskeletal Disorders and Arthritis ENT: Positive Cataracts HEMATOLOGIC: Positive Blood Disorders and Anemia OTHER HISTORY: Positive Hospitalization, Falls, Blood Transfusions, Chicken Pox, Mumps and Hepatitis C Family History FAMILY HISTORY: Positive Family Cardiac Disorders and Family Gastrointestinal Problems Surgical History SURGICAL: Positive Eye Surgery, Tonsillectomy and Abdominal Surgery Social History SMOKING STATUS: Former smoker SECOND HAND EXPOSURE: No 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 HEENT: Normocephalic, atraumatic; pupils equal, round, reactive to light; EOMI; mucous membranes pink, moist; oropharynx clear NECK: Supple LUNGS: Diminished breath sounds in the right base; no wheezes, no rales, no rhonchi HEART: Regular rate, regular rhythm; normal S1, S2; no murmurs ABDOMEN: non distended; normal BS; soft, no tenderness, no guarding, no rebound; no masses, no organomegaly, no hernia BACK: no CVA tenderness EXTREMITIES: atraumatic; no edema NEUROLOGIC: awake; alert and oriented x4; cranial nerves II-XII grossly intact; no focal sensory or motor deficits PSYCHIATRIC: appropriate mood and affect SKIN: warm, dry, normal color; no rashes Course Course Course Narrative: Evaluated after transfusion. Patient feels much improved. Denies SOLORZANO. Will f/u with PCP. Quality Measures none Orders Category Date Time Status Bedside COVID-19 Antigen Test NOW Care 01/14/25 08:43 Completed Bedside Influenza A&B Antigen Test NOW Care 01/14/25 08:43 Completed EKG (ED ONLY) *Do not use* NOW Care 01/14/25 05:48 Completed Transfuse,blood/blood products NOW Care 01/14/25 08:29 Completed EKG (ED Only) Stat Exams 01/14/25 05:48 Draft XR chest 1V Stat Exams 01/14/25 06:09 Completed B-Type Natriuretic Peptide Stat Lab 01/14/25 06:27 Completed CBC Stat Lab 01/14/25 06:27 Completed Comprehensive Metabolic Panel Stat Lab 01/14/25 06:27 Completed LDH (Lactate Dehydrogenase) Stat Lab 01/14/25 06:27 Completed Magnesium Stat Lab 01/14/25 06:27 Completed Partial Thromboplastin Time Stat Lab 01/14/25 06:27 Completed Prothrombin Time with INR Stat Lab 01/14/25 06:27 Completed Red Blood Cells Stat Lab 01/14/25 08:42 Completed Troponin I Stat Lab 01/14/25 06:27 Completed Type and Screen Stat Lab 01/14/25 08:42 Completed Magnesium Sulfate 2 GM Ivpb [Magnesium Sulfate Ivpb] Med 01/14/25 08:29 Discontinued 2 gm in 50 ml IV X1 Reevaluation(s) Reevaluation #1: Patient is feeling better, on his second unit. Time: 14:00 Vital Signs Vital signs: Vital Signs Temperature 98.1 F 01/14/25 05:52 Pulse Rate 81 01/14/25 05:52 Respiratory Rate 19 01/14/25 05:52 Blood Pressure 105/52 L 01/14/25 05:52 Pulse Oximetry (%) 92 L 01/14/25 05:52 Oxygen Delivery Method Room Air 01/14/25 05:52 Shortness of Breath / Dyspnea MDM Narrative MDM Narrative:: I, Alejandra Sosa, am scribing for and in the presence of Dr. Moore. Patient data External records reviewed:: [facility] previous records Clinical information provided by:: patient and spouse Social determinants that could affect healthcare access:: other (specify) (He is a former smoker who quit 39 years ago. ) Patient has the following chronic illnesses:: Past medical history includes anemia, chronic back pain, chronic bilateral leg pain, and recent GI bleed, for which Dr. John discontinued his blood thinners. He has a scheduled echocardiogram follow-up with cardiology. He is a former smoker who quit 39 years ago. How is presenting disease/condition affected by chronic disease/condition?: exacerbated by Evaluation data The following diagnostics were reviewed and interpreted by me:: lab results, radiology exam(s) and EKG tracing(s) (My interpretation: EKG performed at 0556 hours, sinus rhythm, rate 76, left axis deviation, mild IVCD) Lab and/or radiology exams considered but not ordered:: none Interpretation Summary: Chest x-ray: my interpretation shows: bilateral pleural effusions, cervical spine hardware, right perihilar infiltrates, a little aortic calcifications Medications / Prescriptions Medications or Prescriptions considered but not ordered:: none Medication administrations:: Medication Administration History Discontinued Medications Magnesium Sulfate (Magnesium Sulfate Ivpb) 2 gm in 50 mls @ 25 mls/hr IV X1 ONE Stop: 01/14/25 10:28 Last Infusion: 01/14/25 11:44 Dose: Infused Documented By: Admin: 01/14/25 09:56 Dose: 25 mls/hr Documented By: DB see above if any Consultations Consultation(s) initiated? (list below): No Diagnosis Shortness of Breath Differential Diagnosis: other (CHF, anemia-related dyspnea, chronic pulmonary disease with deconditioning) Most likely diagnosis given after review of the tests above:: Dyspnea Symptomatic anemia Transfusion of blood during current hospitalization Admission Indicated Admission indicated?: not indicated Admission Request Was there a request for admission?: No Disposition Plan Disposition Plan: Discharge Discharge Attestation Discharge Attestation: The patient and all family members were given an opportunity to ask questions and understood the discharge instructions. Discharge instructions specifically effects, indications for sooner follow up or return to the emergency department, and the expected course of current diagnosis. Patient condition: Stable Discharge Plan Plan Patient Disposition: HOME (Self Care) Prescriptions/Referrals Prescriptions/Med Rec: No Action pantoprazole 40 mg Tablet,Delayed Release (Dr/Ec) 40 mg PO QDAY clopidogrel 75 mg tablet 75 mg PO QDAY Patient Comments: TAKE 1 TABLET BY MOUTH ONCE DAILY carvedilol 6.25 mg tablet 1 tab PO BID Patient Comments: TAKE 1 TABLET BY MOUTH TWICE DAILY WITH FOOD FOR HEART gabapentin 400 mg capsule 400 cap PO QID Patient Comments: TAKE 1 CAPSULE BY MOUTH 4 TIMES DAILY spironolactone 25 mg Tablet 25 mg PO QDAY Referrals: Christophe Royal [Primary Care Provider] - In 1 week Problem List Clinical Impression: Dyspnea, Symptomatic anemia, Transfusion of blood during current hospitalization Patient/Caregiver Discharge Instructions Education Materials: ED Anemia Type Not Specified, ED Shortness of Breath (Dyspnea) Additional Instructions: Follow up with your primary care doctor for further workup of anemia Print Language: [place] Stand Alone Forms: Rani Award Info., Patient Portal Info Letter
[2025-01-14 06:52] LABS: Basophils # (Auto) 0.0 Thou/mm3 (0.0-0.2); Basophils % (Auto) 1 % (0-2.5); Eosinophils # (Auto) 0.0 Thou/mm3 (0.0-0.5); Eosinophils % (Auto) 1 % (0-10); Hematocrit 23.1 % (41.0-53.0); Immature Granulocytes Auto 0.17 Thou/mm3 (0.00-0.00); Lymphocytes # (Auto) 0.8 Thou/mm3 (1.0-4.8); Lymphocytes % (Auto) 42 % (10-50); Mean Corpuscular HGB Conc 31.6 g/dl (31.0-37.0); Mean Corpuscular Hemoglobin 32.6 pg (25.0-35.0); Mean Corpuscular Volume 103 fL (80-100); Monocytes # (Auto) 0.4 Thou/mm3 (0.0-0.8); Monocytes % (Auto) 22 % (0-12); Neutrophils # (Auto) 0.5 Thou/mm3 (1.8-7.7); Neutrophils % (Auto) 26 % (37-80); Nucleated Red Blood Cell # 0.03 Thou/mm3 (0.00-0.00); Nucleated Red Blood Cell % 2 /100 WBC (0); Platelet Count 167 Thou/mm3 (140-440); RDW Standard Deviation 80.8 fL (35.1-43.9); Red Blood Count 2.24 Miln/mm3 (4.50-5.90)
[2025-01-14 07:09] LABS: INR 1.1 (0.9-1.3); Partial Thromboplastin Time 25.9 Seconds (22.0-36.0); Prothrombin Time 12.4 Seconds (9.0-12.2)
[2025-01-14 07:21] LABS: Alanine Aminotransferase 10 U/L (10-49); Albumin, Serum 3.9 gm/dL (3.4-4.8); Albumin/Globulin Ratio 1.0 (1.2-2.2); Alkaline Phosphatase 88 U/L (46-116); Anion Gap 10 (7-16); Aspartate Amino Transferase 20 U/L (0-34); BUN/Creatinine Ratio 15 Ratio (12-20); Bilirubin,Total 0.9 mg/dL (0.3-1.2); Blood Urea Nitrogen 26 mg/dL (9-23); Calcium 8.9 mg/dL (8.3-10.6); Calcium (Corrected) 9.0 mg/dL (8.5-10.1); Carbon Dioxide 23.1 mMol/L (20.0-31.0); Chloride 106 mMol/L (98-107); Creatinine (Component) 1.7 mg/dL (0.6-1.3); Estimated Creatinine Clearance 29.1 mL/min (>60); Globulin 4.1 gm/dL (2.3-3.5); Glucose 131 mg/dL (74-106); LDH (Lactate Dehydrogenase) 174 U/L (120-246); Magnesium 1.3 mg/dL (1.6-2.6); Osmolality,Calculated 284 (275-295); Potassium 4.2 mMol/L (3.4-5.1); Sodium 139 mMol/L (136-145); Total Protein 8.0 gm/dL (5.7-8.2); Troponin I < 0.020 ng/mL (0.0-0.045); eGFR 39 See Note
--- NOTE | 2025-01-14 07:31 | PC.NURSE ---
Pt GCS 15 upon assumption of care, sitting up on stretcher, states he has had an intermittent cough, and has had increased SOB, gets worse w/exertion. reports he has a hard time w/pna. pt updated on poc and in agreement
[2025-01-14 07:44] LABS: B-Type Natriuretic Peptide 242 pg/mL (0-100)
[2025-01-14 08:07] LABS: Hemoglobin 7.3 g/dL (13.5-16.0); White Blood Count 1.9 Thou/mm3 (3.8-10.6)
--- NOTE | 2025-01-14 08:58 | PC.NURSE ---
SPOKE W/PHARMACY AT THIS TIME, TO NOTIFY THAT WE ARE OUT OF THE MAG NEEDED FOR THIS PT, PHARMACY WILL RE-STOCK PYXIS.
[2025-01-14] MEDS: Magnesium Sulfate 2 GM Ivpb 2 GM/50 ML BAG IV (09:56)
== END 2025-01-14 16:53 | disposition home or self-care (01) ==
PROVIDERS: Registered Nurse General Practice; Emergency Provider Emergency Medicine; PCP Internal Medicine
DX: D64.9 Anemia, unspecified (principal); I49.8 Other specified cardiac arrhythmias; R06.00 Dyspnea, unspecified; I11.0 Hypertensive heart disease with heart failure; I50.9 Heart failure, unspecified; Z87.891 Personal history of nicotine dependence
CPT/HCPCS: 36415; 36430; 71045; 80053; 80307; 81001; 83615; 83735; 83880; 84484; 85025; 85610; 85730; 86850; 86900; 86901; 86923; 93005; 96365; 96366; 99283; J3475; P9016

== ENCOUNTER 2025-02-13 19:36 | Emergency (ER) | payer MEDICARE, SELFPAY ==
--- NOTE | 2025-02-13 19:40 | EKG_ITS ---
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
[2025-02-13 19:56] VITALS: BP 112/53; PULSE 95; RESP 18; O2SAT 88
--- NOTE | 2025-02-13 19:58 | PD.EDSOB ---
ED SOB =RME/HPI General Chief Complaint: Shortness of Breath/Dyspnea Stated Complaint: DIFF BREATHING Time Seen by Provider: 02/13/25 19:56 Arrival date/time: 02/13/25 19:36 RME / HPI RME / HPI Narrative: 84-year-old male patient with significant history of upper GI bleed, acute myelodysplastic syndrome was brought in by family for evaluation regarding shortness of breath. Patient been complaining of shortness of breath for the last 1 week, getting worse today severity moderate. Patient denies any vomiting blood denies any blood in the stool denies any changes in the color of the stool. Patient received blood transfusion more than a month ago. Patient denies any abdominal pain denies any chest pain. No medication was taken prior to arrival. Related Data Home Medications ?Medication ?Instructions ?Recorded ?Confirmed pantoprazole 40 mg tablet,delayed 40 mg PO QDAY 02/07/21 12/04/24 release clopidogrel 75 mg tablet 75 mg PO QDAY 09/22/21 12/03/24 carvedilol 6.25 mg tablet 1 tab PO BID 11/08/21 12/03/24 gabapentin 400 mg capsule 400 cap PO QID 11/10/21 12/03/24 spironolactone 25 mg tablet 25 mg PO QDAY 04/15/22 12/03/24 Allergies Allergy/AdvReac Type Severity Reaction Status Date / Time No Known Allergies Allergy Verified 02/13/25 19:38 Review of Systems Review of Systems Narrative Review of Systems: Review of system reviewed and within normal limits except mentioned in HPI ED Exam Narrative Physical exam: VITAL SIGNS: Reviewed. GENERAL APPEARANCE: Alert and interactive, follows commands, no acute distress, HEAD AND FACE: Non-traumatic. ENT: PERRL, pale conjunctiva, eyelid no trauma, Mucous membrane moist. NECK: Supple, nontender, no nuchal rigidity. CHEST: No tenderness, no crepitus, no paradoxical movement, no retractions. LUNGS: Clear, well ventilated, symmetric, no rales, no wheezing, no ronchi, no stridor, good breath sounds bilaterally. HEART: Regular rate, regular rhythm, no murmur, no gallops. ABDOMEN: Soft, positive bowel sounds, nondistended, no guarding, nontender, no rebound, no masses, RECTAL: Deferred. GENITAL: Deferred. NEUROLOGICAL: Gross motor function intact sensory function intact, Appropriate for age. MUSCULOSKELETAL: low back nontender, full range of motion. EXTREMITIES: Nontender, full range of motion. SKIN: Color pale, dry, no rash, no lacerations, no abrasions, no contusions. LYMPHATICS: Deferred. Course Quality Measures none Orders Category Date Time Status Bedside COVID-19 Antigen Test NOW Care 02/13/25 20:13 Active EKG (ED ONLY) *Do not use* NOW Care 02/13/25 19:40 Completed Occult Blood,Stool (Nursing) ONCE Care 02/13/25 19:57 Active Transfuse,blood/blood products ONCE Care 02/13/25 19:57 Active EKG (ED Only) Stat Exams 02/13/25 19:40 Draft XR chest 1V Stat Exams 02/13/25 21:22 Taken BNP [B-Type Natriuretic Peptide] Stat Lab 02/13/25 20:11 Completed CBC Stat Lab 02/13/25 20:11 Completed Comprehensive Metabolic Panel Stat Lab 02/13/25 20:11 Completed Partial Thromboplastin Time Stat Lab 02/13/25 20:11 Completed Prothrombin Time with INR Stat Lab 02/13/25 20:11 Completed Red Blood Cells Stat Lab 02/13/25 20:11 Results Type and Screen Stat Lab 02/13/25 20:11 Results Urinalysis Stat Lab 02/13/25 19:57 Ordered Vital Signs Vital signs: Vital Signs Pulse Rate 95 02/13/25 19:56 Respiratory Rate 18 02/13/25 19:56 Blood Pressure 112/53 L 02/13/25 19:56 Pulse Oximetry (%) 88 L 02/13/25 19:56 Oxygen Delivery Method Room Air 02/13/25 19:56 Shortness of Breath / Dyspnea [facility] Narrative MDM Narrative:: 84-year-old male patient with significant history of upper GI bleed, acute myelodysplastic syndrome was brought in by family for evaluation regarding shortness of breath. Patient been complaining of shortness of breath for the last 1 week, getting worse today severity moderate. Patient denies any vomiting blood denies any blood in the stool denies any changes in the color of the stool. Patient received blood transfusion more than a month ago. Patient denies any abdominal pain denies any chest pain. No medication was taken prior to arrival. Patient's hemoglobin was noted to be 7.7, and symptomatic, so we decided to give 2 units of packed RBC. Patient tolerated the procedure well. Currently satting 94% on room air. Patient's hemoglobin was noted to be 1.6 BUN of 31, patient's baseline. Patient tolerated the blood transfusion well. BNP 510. Chest x-ray showed no infiltrates noted. EKG showed normal sinus rhythm, ventricular rate of 92 beats per, nonspecific elevation depression noted. Stable for discharge home Patient data External records reviewed:: None Clinical information provided by:: patient and family Social determinants that could affect healthcare access:: none Patient has the following chronic illnesses:: Myelodysplastic syndrome How is presenting disease/condition affected by chronic disease/condition?: exacerbated by Evaluation data The following diagnostics were reviewed and interpreted by me:: lab results, radiology exam(s) and EKG tracing(s) Lab and/or radiology exams considered but not ordered:: None Interpretation Summary: See results MDM Medications / Prescriptions Medications or Prescriptions considered but not ordered:: None Medication administrations:: 2 units packed RBC Consultations Consultation(s) initiated? (list below): No Diagnosis Shortness of Breath Differential Diagnosis: acute exacerbation of chronic obstructive airways disease, congestive heart failure, community acquired pneumonia and other (Shortness of breath, anemia) Most likely diagnosis given after review of the tests above:: Symptomatic anemia Admission Indicated Admission indicated?: not indicated Admission Request Was there a request for admission?: No Disposition Plan Disposition Plan: Discharge Discharge Attestation Discharge Attestation: The patient was given an opportunity to ask questions and understood the discharge instructions. Discharge instructions specifically effects, indications for sooner follow up or return to the emergency department, and the expected course of current diagnosis. Patient condition: Stable Discharge Plan Plan Patient Disposition: HOME (Self Care) Discharge Disposition comment: Stable Prescriptions/Referrals Prescriptions/Med Rec: No Action pantoprazole 40 mg Tablet,Delayed Release (Dr/Ec) 40 mg PO QDAY clopidogrel 75 mg tablet 75 mg PO QDAY Patient Comments: TAKE 1 TABLET BY MOUTH ONCE DAILY carvedilol 6.25 mg tablet 1 tab PO BID Patient Comments: TAKE 1 TABLET BY MOUTH TWICE DAILY WITH FOOD FOR HEART gabapentin 400 mg capsule 400 cap PO QID Patient Comments: TAKE 1 CAPSULE BY MOUTH 4 TIMES DAILY spironolactone 25 mg Tablet 25 mg PO QDAY Referrals: No Primary/Family,Physician [Primary Care Provider] - In 1 week Problem List Clinical Impression: Anemia Patient/Caregiver Discharge Instructions Discharge Activity: activity as tolerated Education Materials: Anemia Additional Instructions: Thank you for the opportunity for serving you today. You are stable for discharged . 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
[2025-02-13 20:24] VITALS: BP 130/52; PULSE 90; RESP 27; TEMP 37.4; O2SAT 94
[2025-02-13 20:37] LABS: Basophils # (Auto) 0.0 Thou/mm3 (0.0-0.2); Basophils % (Auto) 1 % (0-2.5); Eosinophils # (Auto) 0.0 Thou/mm3 (0.0-0.5); Eosinophils % (Auto) 1 % (0-10); Hematocrit 23.9 % (41.0-53.0); Immature Granulocytes Auto 0.03 Thou/mm3 (0.00-0.00); Lymphocytes # (Auto) 0.5 Thou/mm3 (1.0-4.8); Lymphocytes % (Auto) 22 % (10-50); Mean Corpuscular HGB Conc 32.2 g/dl (31.0-37.0); Mean Corpuscular Hemoglobin 32.8 pg (25.0-35.0); Mean Corpuscular Volume 102 fL (80-100); Monocytes # (Auto) 0.4 Thou/mm3 (0.0-0.8); Monocytes % (Auto) 20 % (0-12); Neutrophils # (Auto) 1.2 Thou/mm3 (1.8-7.7); Neutrophils % (Auto) 55 % (37-80); Nucleated Red Blood Cell # 0.04 Thou/mm3 (0.00-0.00); Nucleated Red Blood Cell % 2 /100 WBC (0); Platelet Count 120 Thou/mm3 (140-440); RDW Standard Deviation 73.0 fL (35.1-43.9); Red Blood Count 2.35 Miln/mm3 (4.50-5.90); White Blood Count 2.1 Thou/mm3 (3.8-10.6)
[2025-02-13 20:38] LABS: Hemoglobin 7.7 g/dL (13.5-16.0)
[2025-02-13 20:49] LABS: INR 1.2 (0.9-1.3); Partial Thromboplastin Time 26.6 Seconds (22.0-36.0); Prothrombin Time 12.6 Seconds (9.0-12.2)
[2025-02-13 20:52] LABS: Alanine Aminotransferase 27 U/L (10-49); Albumin, Serum 3.8 gm/dL (3.4-4.8); Albumin/Globulin Ratio 0.9 (1.2-2.2); Alkaline Phosphatase 159 U/L (46-116); Anion Gap 10 (7-16); Aspartate Amino Transferase 31 U/L (0-34); BUN/Creatinine Ratio 19 Ratio (12-20); Bilirubin,Total 1.3 mg/dL (0.3-1.2); Blood Urea Nitrogen 31 mg/dL (9-23); Calcium 9.2 mg/dL (8.3-10.6); Calcium (Corrected) 9.4 mg/dL (8.5-10.1); Carbon Dioxide 24.2 mMol/L (20.0-31.0); Chloride 104 mMol/L (98-107); Creatinine (Component) 1.6 mg/dL (0.6-1.3); Globulin 4.4 gm/dL (2.3-3.5); Glucose 103 mg/dL (74-106); Osmolality,Calculated 282 (275-295); Potassium 4.7 mMol/L (3.4-5.1); Sodium 138 mMol/L (136-145); Total Protein 8.2 gm/dL (5.7-8.2); eGFR 42 See Note
--- NOTE | 2025-02-13 21:22 | XR_ITS ---
Examination: AP chest single view Technique: AP portable upright chest single view Date and time: February 13, 2025, 2122 hrs., Comparison January 14, 2025 Indications: Chest pain today. Findings: Significant hyperexpansion. Again noted parenchymal disease throughout both lungs Normal heart size Please see the CT chest report February 10, 2024 Impression: Again noted extensive bilateral parenchymal disease, consider repeat elective CT chest without contrast follow-up to compare with the February 10, 2024 exam
[2025-02-13 21:34] LABS: B-Type Natriuretic Peptide 510 pg/mL (0-100)
[2025-02-13 21:50] VITALS: BP 119/59; PULSE 90; RESP 21; TEMP 37.2
[2025-02-13 22:06] VITALS: BP 115/60; PULSE 88; RESP 18; TEMP 37.7; O2SAT 96
[2025-02-13 22:08] VITALS: BP 115/60; PULSE 87; RESP 25; TEMP 37.7; O2SAT 94
[2025-02-13 22:23] VITALS: BP 110/64; PULSE 91; RESP 18; TEMP 37.6; O2SAT 94
[2025-02-14] VITALS (7 sets, daily range): BP systolic 122–130; BP diastolic 58–78; PULSE 76–85; RESP 18–21; TEMP 27.7–36.9; O2SAT 95–98
== END 2025-02-14 02:32 | disposition home or self-care (01) ==
PROVIDERS: Nurse Practitioner Family; Emergency Provider Emergency Medicine
DX: R06.00 Dyspnea, unspecified (principal); D64.9 Anemia, unspecified
CPT/HCPCS: 36415; 71045; 80053; 81001; 83880; 85025; 85610; 85730; 86850; 86900; 86901; 86923; 87400; 87811; 93005; 99283; P9016

== ENCOUNTER → 2025-02-25 | Outpatient (CLI) | payer MEDICARE, SELFPAY ==
[2025-02-25 08:16] LABS: Flow Cytometry* See Sep Rpt; Misc Send Out* See Sep Rpt
[2025-02-25 08:36] LABS: Basophils # (Auto) 0.0 Thou/mm3 (0.0-0.2); Basophils % (Auto) 0 % (0-2.5); Eosinophils # (Auto) 0.0 Thou/mm3 (0.0-0.5); Eosinophils % (Auto) 0 % (0-10); Hematocrit 26.8 % (41.0-53.0); Immature Granulocytes Auto 0.12 Thou/mm3 (0.00-0.00); Immature Reticulocyte Fraction 12.5 % (2.3-13.4); Lymphocytes # (Auto) 0.7 Thou/mm3 (1.0-4.8); Lymphocytes % (Auto) 31 % (10-50); Mean Corpuscular HGB Conc 31.7 g/dl (31.0-37.0); Mean Corpuscular Hemoglobin 33.1 pg (25.0-35.0); Mean Corpuscular Volume 104 fL (80-100); Monocytes # (Auto) 0.4 Thou/mm3 (0.0-0.8); Monocytes % (Auto) 18 % (0-12); Neutrophils # (Auto) 1.1 Thou/mm3 (1.8-7.7); Neutrophils % (Auto) 45 % (37-80); Nucleated Red Blood Cell # 0.00 Thou/mm3 (0.00-0.00); Nucleated Red Blood Cell % 0 /100 WBC (0); Platelet Count 208 Thou/mm3 (140-440); RDW Standard Deviation 65.6 fL (35.1-43.9); Red Blood Count 2.57 Miln/mm3 (4.50-5.90); Reticulocyte % (Auto) 0.7 % (0.5-1.5); Reticulocyte Absolute Auto 18.0 Biln/L (25.0-75.0); Reticulocyte Hgb Content 35.2 pg (28.0-35.0); White Blood Count 2.4 Thou/mm3 (3.8-10.6)
[2025-02-25 08:53] LABS: Hemoglobin 8.5 g/dL (13.5-16.0)
[2025-02-25 09:10] LABS: Alanine Aminotransferase 23 U/L (10-49); Albumin, Serum 3.8 gm/dL (3.4-4.8); Albumin/Globulin Ratio 0.8 (1.2-2.2); Alkaline Phosphatase 157 U/L (46-116); Anion Gap 9 (7-16); Aspartate Amino Transferase 26 U/L (0-34); BUN/Creatinine Ratio 16 Ratio (12-20); Bilirubin,Total 0.9 mg/dL (0.3-1.2); Blood Urea Nitrogen 23 mg/dL (9-23); Calcium 9.2 mg/dL (8.3-10.6); Calcium (Corrected) 9.4 mg/dL (8.5-10.1); Carbon Dioxide 24.9 mMol/L (20.0-31.0); Chloride 105 mMol/L (98-107); Creatinine (Component) 1.4 mg/dL (0.6-1.3); Folate 17.80 ng/mL (>5.38); Globulin 4.7 gm/dL (2.3-3.5); Glucose 93 mg/dL (74-106); LDH (Lactate Dehydrogenase) 176 U/L (120-246); Osmolality,Calculated 281 (275-295); Potassium 4.7 mMol/L (3.4-5.1); Sodium 139 mMol/L (136-145); Total Protein 8.5 gm/dL (5.7-8.2); Uric Acid 8.7 mg/dL (3.7-9.2); Vitamin B12 > 2000 pg/mL (211-911); eGFR 50 See Note
[2025-02-25 09:11] LABS: Ferritin 936 ng/mL (10.5-307.3); Iron 132 mcg/dL (65-175); Percent Iron Saturation 84 % (20-55); Total Iron Binding Capacity 156 mcg/dL (250-425); Unsaturated Iron Binding 24 (225-295)
[2025-03-04 06:55] LABS: Erythropoietin (EPO)* 37.9 mIU/mL (2.6-18.5)
== END | disposition home or self-care (01) ==
LOC: COPL 07:42
PROVIDERS: PCP Internal Medicine; Referring Provider Internal Medicine Hematology & Oncology; Visit Provider Internal Medicine Hematology & Oncology
DX: D61.818 Other pancytopenia (principal); D75.81 Myelofibrosis
CPT/HCPCS: 36415; 80053; 82607; 82668; 82728; 82746; 83540; 83550; 83615; 84550; 85025; 85046

== ENCOUNTER → 2025-03-01 | Outpatient (CLI) | payer MEDICARE, SELFPAY ==
[2025-03-01] VITALS (9 sets, daily range): BP systolic 130–163; BP diastolic 58–81; PULSE 61–71; RESP 11–18; TEMP 36.6–36.7; O2SAT 97–100
[2025-03-01 07:38] LABS: Basophils # (Auto) 0.0 Thou/mm3 (0.0-0.2); Basophils % (Auto) 1 % (0-2.5); Eosinophils # (Auto) 0.0 Thou/mm3 (0.0-0.5); Eosinophils % (Auto) 0 % (0-10); Hematocrit 25.4 % (41.0-53.0); Immature Granulocytes Auto 0.04 Thou/mm3 (0.00-0.00); Lymphocytes # (Auto) 0.9 Thou/mm3 (1.0-4.8); Lymphocytes % (Auto) 51 % (10-50); Mean Corpuscular HGB Conc 32.3 g/dl (31.0-37.0); Mean Corpuscular Hemoglobin 33.3 pg (25.0-35.0); Mean Corpuscular Volume 103 fL (80-100); Monocytes # (Auto) 0.3 Thou/mm3 (0.0-0.8); Monocytes % (Auto) 18 % (0-12); Neutrophils # (Auto) 0.5 Thou/mm3 (1.8-7.7); Neutrophils % (Auto) 29 % (37-80); Nucleated Red Blood Cell # 0.00 Thou/mm3 (0.00-0.00); Nucleated Red Blood Cell % 0 /100 WBC (0); Platelet Count 227 Thou/mm3 (140-440); RDW Standard Deviation 65.8 fL (35.1-43.9); Red Blood Count 2.46 Miln/mm3 (4.50-5.90); White Blood Count 1.8 Thou/mm3 (3.8-10.6)
[2025-03-01 07:40] LABS: Hemoglobin 8.2 g/dL (13.5-16.0)
[2025-03-01 08:29] LABS: Path Review Blood Smear Sent to Pathologist
--- NOTE | 2025-03-01 08:30 | XR_ITS ---
Examination: CT-guided percutaneous bone marrow aspiration left posterior superior iliac crest CT-guided percutaneous bone biopsy deep left posterior superior iliac crest CT pelvis without intravenous contrast INDICATIONS: Pancytopenia laboratory examination this month Date and time of procedure: March 01, 2025 0921 hours Informed consent provided. A timeout was completed verifying correct patient, procedure, site and positioning. Technique: Axial 3 mm sections were obtained for localization of the left posterior superior iliac crest Appropriate area is marked. The patient's site was prepped and draped in sterile fashion Maximal sterile barrier technique utilized, including hand hygiene Local anesthesia was obtained with 1% lidocaine. Low dose protocols were performed. One or more of the following dose reduction techniques were used; automated exposure control, adjustment of the mA and/or KV according to patient size, use of iterative reconstruction technique. Utilizing CT fluoroscopic guidance 14-gauge bone biopsy needle placed in the left posterior superior iliac crest 5 cc marrow aspirate obtained. 5 cc bone core obtained specimens appears satisfactory Patient appears in stable condition during this procedure. At completion of the procedure, the patient is in satisfactory condition. Estimated blood loss 2 cc Complete pathology report to follow. Impression: Successful CT-guided percutaneous bone marrow aspiration left posterior superior iliac crest Successful CT-guided percutaneous bone biopsy deep left posterior superior iliac crest
[2025-03-01 08:34] LABS: INR 1.2 (0.9-1.3); Partial Thromboplastin Time 29.1 Seconds (22.0-36.0); Prothrombin Time 12.7 Seconds (9.0-12.2)
[2025-03-01] MEDS: SODIUM CHLORIDE 0.9% 500 ML 500 ML 20 ML IV (09:30)
[2025-03-01] MEDS: fentaNYL CIT INJ 50 mCg/ML AMP 2ML IVP (09:38)
[2025-03-01 10:07] LABS: Flow Cytometry* See Sep Rpt
== END | disposition home or self-care (01) ==
PROVIDERS: Radiology Diagnostic Radiology; PCP Internal Medicine; Referring Provider Internal Medicine Hematology & Oncology; Visit Provider Internal Medicine Hematology & Oncology
DX: D75.89 Other specified diseases of blood and blood-forming organs (principal); Z01.812 Encounter for preprocedural laboratory examination
CPT/HCPCS: 38221; 36415; 77012; 85025; 85610; 85730; J3010; J7999

== ENCOUNTER 2025-03-08 07:58 | Outpatient (CLI) | payer MEDICARE, SELFPAY ==
[2025-03-05 08:12] LABS: Basophils # (Auto) 0.0 Thou/mm3 (0.0-0.2); Basophils % (Auto) 0 % (0-2.5); Eosinophils # (Auto) 0.0 Thou/mm3 (0.0-0.5); Eosinophils % (Auto) 0 % (0-10); Hematocrit 27.1 % (41.0-53.0); Immature Granulocytes Auto 0.04 Thou/mm3 (0.00-0.00); Lymphocytes # (Auto) 0.7 Thou/mm3 (1.0-4.8); Lymphocytes % (Auto) 31 % (10-50); Mean Corpuscular HGB Conc 31.7 g/dl (31.0-37.0); Mean Corpuscular Hemoglobin 32.7 pg (25.0-35.0); Mean Corpuscular Volume 103 fL (80-100); Monocytes # (Auto) 0.6 Thou/mm3 (0.0-0.8); Monocytes % (Auto) 26 % (0-12); Neutrophils # (Auto) 0.9 Thou/mm3 (1.8-7.7); Neutrophils % (Auto) 40 % (37-80); Nucleated Red Blood Cell # 0.02 Thou/mm3 (0.00-0.00); Nucleated Red Blood Cell % 1 /100 WBC (0); Platelet Count 192 Thou/mm3 (140-440); RDW Standard Deviation 66.4 fL (35.1-43.9); Red Blood Count 2.63 Miln/mm3 (4.50-5.90); White Blood Count 2.2 Thou/mm3 (3.8-10.6)
[2025-03-05 08:15] LABS: Hemoglobin 8.6 g/dL (13.5-16.0)
[2025-03-05 08:19] LABS: Blood Urea Nitrogen 21 mg/dL (9-23); Creatinine (Component) 1.5 mg/dL (0.6-1.3); eGFR 46 See Note
[2025-03-05 08:34] LABS: INR 1.2 (0.9-1.3); Partial Thromboplastin Time 26.2 Seconds (22.0-36.0); Prothrombin Time 12.6 Seconds (9.0-12.2)
[2025-03-08] VITALS (9 sets, daily range): BP systolic 129–167; BP diastolic 63–95; PULSE 55–68; RESP 14–19; TEMP 36.7–37; O2SAT 95–100; BMI 19.0
--- NOTE | 2025-03-08 09:00 | XR_ITS ---
Examination: IR venous implantation Port-A-Cath Ultrasound-guided needle placement Fluoroscopy AP Chest, portable single view Exam date and time: June 07, 2025, 0855 hours . Indications: Diagnosis of myelofibrosis requiring intravenous long-term medication Informed consent provided Technique: A timeout was completed, verifying correct patient, procedure, site, positioning, and special equipment if applicable The patient was placed in a dependent position appropriate for central line placement based on the vein to be cannulated. The patient's right neck was prepped and draped in sterile fashion. Maximum Sterile Barrier Technique used including cap, mask, sterile gown, sterile gloves, and sterile full body drape. If ultrasound technique used: sterile gel and sterile probe covers. Hand Hygiene performed using proper scrub, soap and water, or alcohol-based hand Site right portable apparatus utilized to confirm patency of the right internal jugular vein, utilizing ultrasonographic guidance successful 21-gauge needle puncture into the right internal jugular vein Ultrasound images were recorded and stored. Successful micropuncture with a 21-gauge needle was performed. 0.18 wire guide was introduced into the IVC under fluoroscopic guidance. The wires is then exchanged for a 0.25 J-wire guide placed in the vena cava. Blunt dissection utilized to form subcutaneous pocket in the upper right chest 8 Wolof 21 cm Port-A-Cath line and connected to reservoir placed in the pouch and placed venous sheath into the superior vena cava Findings: Under fluoroscopy, the tip of the catheter is in good position in the vena cava. Portable chest x-ray, post Port-A-Cath, as ordered. Impression: Successful IR venous implantation Port-A-Cath AP portable chest completion procedure demonstrates satisfactory Port-A-Cath tip SVC. Fluoroscopy 0.1 minute 1 spot fluoroscopic chest film May use Port-A-Cath
[2025-03-08] MEDS: ceFAZolin/D5W 1 GM IVPB 1 GM/50 ML BAG IV (09:20)
[2025-03-08] MEDS: ceFAZolin/D5W 1 GM IVPB 1 GM/50 ML BAG 100 GM INFL (09:20)
[2025-03-08] MEDS: LIDOCAINE INJ PF 1% 30 ML VIAL INFL (09:53)
[2025-03-08] MEDS: HEPARIN SOD LOCK SYR 100 UNIT/ML 500 UNIT STFIELD (09:53)
[2025-03-08] MEDS: LIDOCAINE 1% W/EPI 1:100K 20 ML VIAL INFL (09:53)
[2025-03-08] MEDS: fentaNYL CIT INJ 50 mCg/ML AMP 2ML IVP (09:58)
--- NOTE | 2025-03-11 14:41 | PC.NURSE ---
PATIENT CAME IN DUE TO CONCERN FOR BRUISING AFTER PORT PLACEMENT. LABS AND XRAY ORDERED BY DR HERNANDEZ. BRUISING, LABS, AND CHEST XRAY REVIEWED BY DOCTOR HERNANDEZ. EXPLAINED TO PATIENT THAT BRUISING HAPPENED MOST LIKELY DAY OF PROCEDURE AND WAS OLD, X RAY WAS NORMAL AND NO CONCERN AT THE MOMENT. PATIENT STATED HIS CONCERN FOR HEMOGLOBIN BEING BELOW 8 SINCE CTC MENTIONED TRANSFUSING IF HGB DROPPED BELOW 8. MD RECCOMENDED PATIENT TO CALL [facility] FOR POSSIBLE TRANSFUSION IF NEEDED.
== END 2025-03-08 11:31 | disposition home or self-care (01) ==
PROVIDERS: Radiology Diagnostic Radiology; PCP Internal Medicine; Referring Provider Internal Medicine Hematology & Oncology; Visit Provider Internal Medicine Hematology & Oncology
DX: D75.81 Myelofibrosis (principal)
CPT/HCPCS: 36571; 36415; 76937; 77001; 82565; 84520; 85025; 85610; 85730; A4649; C1769; C1788; C1894; J0689; J1642; J3010; J3490; J7050

== ENCOUNTER 2025-03-11 13:27 | Outpatient (CLI) | payer MEDICARE, SELFPAY ==
--- NOTE | 2025-03-11 13:53 | XR_ITS ---
Examination: PA lateral chest 2 views TECHNIQUE: Upright PA lateral chest 2 views Date and time: March 11, 2015 1418 hours, comparison 02/13/2025 INDICATIONS: Postop Port-A-Cath 3 days ago with bruising in the chest FINDINGS: Normal heart size Right internal jugular Port-A-Cath tip satisfactory position Scarring at the costophrenic angles again noted Parenchymal scarring in addition IMPRESSION: COPD Port-A-Cath tip satisfactory position
[2025-03-11 14:04] LABS: Basophils # (Auto) 0.0 Thou/mm3 (0.0-0.2); Basophils % (Auto) 1 % (0-2.5); Eosinophils # (Auto) 0.0 Thou/mm3 (0.0-0.5); Eosinophils % (Auto) 2 % (0-10); Hematocrit 24.3 % (41.0-53.0); Immature Granulocytes Auto 0.03 Thou/mm3 (0.00-0.00); Lymphocytes # (Auto) 1.1 Thou/mm3 (1.0-4.8); Lymphocytes % (Auto) 56 % (10-50); Mean Corpuscular HGB Conc 31.7 g/dl (31.0-37.0); Mean Corpuscular Hemoglobin 32.6 pg (25.0-35.0); Mean Corpuscular Volume 103 fL (80-100); Monocytes # (Auto) 0.3 Thou/mm3 (0.0-0.8); Monocytes % (Auto) 16 % (0-12); Neutrophils # (Auto) 0.5 Thou/mm3 (1.8-7.7); Neutrophils % (Auto) 24 % (37-80); Nucleated Red Blood Cell # 0.03 Thou/mm3 (0.00-0.00); Nucleated Red Blood Cell % 2 /100 WBC (0); Platelet Count 152 Thou/mm3 (140-440); RDW Standard Deviation 68.0 fL (35.1-43.9); Red Blood Count 2.36 Miln/mm3 (4.50-5.90); White Blood Count 1.9 Thou/mm3 (3.8-10.6)
[2025-03-11 14:08] LABS: INR 1.2 (0.9-1.3); Prothrombin Time 12.3 Seconds (9.0-12.2)
[2025-03-11 14:13] LABS: Hemoglobin 7.7 g/dL (13.5-16.0)
--- NOTE | 2025-03-11 14:41 | PC.NURSE ---
03/11/25 14:41 PATIENT CAME IN DUE TO CONCERN FOR BRUISING AFTER PORT PLACEMENT. LABS AND XRAY ORDERED BY DR HERNANDEZ. BRUISING, LABS, AND CHEST XRAY REVIEWED BY DOCTOR HERNANDEZ. MD EXPLAINED TO PATIENT THAT BRUISING HAPPENED MOST LIKELY DAY OF PROCEDURE AND WAS OLD, X RAY WAS NORMAL AND NO CONCERN AT THE MOMENT. PATIENT STATED HIS CONCERN FOR HEMOGLOBIN BEING BELOW 8 SINCE CTC MENTIONED TRANSFUSING IF HGB DROPPED BELOW 8. MD RECCOMENDED PATIENT TO CALL [facility] FOR POSSIBLE TRANSFUSION IF NEEDED. PATIENT DEPARTED 14:35 WITH .
[2025-03-11 16:47] LABS: Eosinophils (Manual) 2 % (0-4); Lymphocytes (Manual) 57 % (20-44); Monocytes (Manual) 5 % (2-9); Neutrophils (Manual) 25 % (50-70)
[2025-03-11 16:48] LABS: Myelocytes (Manual) 1 % (0-0)
[2025-03-11 16:49] LABS: Band Neutrophils (Manual) 6 % (0-6); Basophils (Manual) 3 % (0-2)
[2025-03-11 16:50] LABS: Metamyelocytes (Manual) 1 % (0-0)
== END 2025-03-11 14:35 | disposition home or self-care (01) ==
LOC: SDIM 13:28
PROVIDERS: PCP Internal Medicine; Referring Provider Radiology Diagnostic Radiology; Visit Provider Radiology Diagnostic Radiology
DX: J44.9 Chronic obstructive pulmonary disease, unspecified (principal); Z98.890 Other specified postprocedural states; D75.81 Myelofibrosis
CPT/HCPCS: 36415; 71046; 85025; 85610

== ENCOUNTER 2025-04-06 08:40 | Outpatient (RCR) | payer MEDICARE, SELFPAY ==
[2025-03-30 12:45] LABS: Basophils # (Auto) 0.0 Thou/mm3 (0.0-0.2); Basophils % (Auto) 1 % (0-2.5); Eosinophils # (Auto) 0.0 Thou/mm3 (0.0-0.5); Eosinophils % (Auto) 2 % (0-10); Hematocrit 21.9 % (41.0-53.0); Immature Granulocytes Auto 0.03 Thou/mm3 (0.00-0.00); Lymphocytes # (Auto) 0.8 Thou/mm3 (1.0-4.8); Lymphocytes % (Auto) 52 % (10-50); Mean Corpuscular HGB Conc 32.4 g/dl (31.0-37.0); Mean Corpuscular Hemoglobin 34.0 pg (25.0-35.0); Mean Corpuscular Volume 105 fL (80-100); Monocytes # (Auto) 0.3 Thou/mm3 (0.0-0.8); Monocytes % (Auto) 17 % (0-12); Neutrophils # (Auto) 0.4 Thou/mm3 (1.8-7.7); Neutrophils % (Auto) 27 % (37-80); Nucleated Red Blood Cell # 0.04 Thou/mm3 (0.00-0.00); Nucleated Red Blood Cell % 3 /100 WBC (0); Platelet Count 130 Thou/mm3 (140-440); RDW Standard Deviation 79.7 fL (35.1-43.9); Red Blood Count 2.09 Miln/mm3 (4.50-5.90); White Blood Count 1.6 Thou/mm3 (3.8-10.6)
[2025-03-30 13:03] LABS: Hemoglobin 7.1 g/dL (13.5-16.0)
[2025-04-06 09:54] LABS: Basophils # (Auto) 0.0 Thou/mm3 (0.0-0.2); Basophils % (Auto) 1 % (0-2.5); Eosinophils # (Auto) 0.0 Thou/mm3 (0.0-0.5); Eosinophils % (Auto) 1 % (0-10); Hematocrit 23.2 % (41.0-53.0); Immature Granulocytes Auto 0.04 Thou/mm3 (0.00-0.00); Lymphocytes # (Auto) 0.6 Thou/mm3 (1.0-4.8); Lymphocytes % (Auto) 28 % (10-50); Mean Corpuscular HGB Conc 32.3 g/dl (31.0-37.0); Mean Corpuscular Hemoglobin 33.0 pg (25.0-35.0); Mean Corpuscular Volume 102 fL (80-100); Monocytes # (Auto) 0.4 Thou/mm3 (0.0-0.8); Monocytes % (Auto) 21 % (0-12); Neutrophils # (Auto) 1.0 Thou/mm3 (1.8-7.7); Neutrophils % (Auto) 47 % (37-80); Nucleated Red Blood Cell # 0.03 Thou/mm3 (0.00-0.00); Nucleated Red Blood Cell % 1 /100 WBC (0); Platelet Count 112 Thou/mm3 (140-440); RDW Standard Deviation 85.0 fL (35.1-43.9); Red Blood Count 2.27 Miln/mm3 (4.50-5.90); White Blood Count 2.1 Thou/mm3 (3.8-10.6)
[2025-04-06 10:02] LABS: Hemoglobin 7.5 g/dL (13.5-16.0)
== END 2025-04-09 23:59 | disposition home or self-care (01) ==
LOC: SCTC 08:40
PROVIDERS: PCP Internal Medicine; Referring Provider Internal Medicine; Visit Provider Internal Medicine Hematology & Oncology
DX: D64.9 Anemia, unspecified (principal); D75.81 Myelofibrosis; I11.0 Hypertensive heart disease with heart failure; I50.9 Heart failure, unspecified; D69.6 Thrombocytopenia, unspecified
CPT/HCPCS: 36415; 36430; 85025; 86850; 86900; 86901; 86923; 99212; A4216; J1642; J7040; P9016; G0463

== ENCOUNTER 2025-04-30 10:37 | Outpatient (RCR) | payer MEDICARE, SELFPAY ==
[2025-04-19 09:28] LABS: Misc Send Out* See Sep Rpt
[2025-04-19 09:39] LABS: Basophils # (Auto) 0.0 Thou/mm3 (0.0-0.2); Basophils % (Auto) 1 % (0-2.5); Eosinophils # (Auto) 0.0 Thou/mm3 (0.0-0.5); Eosinophils % (Auto) 2 % (0-10); Hematocrit 24.2 % (41.0-53.0); Immature Granulocytes Auto 0.02 Thou/mm3 (0.00-0.00); Lymphocytes # (Auto) 0.8 Thou/mm3 (1.0-4.8); Lymphocytes % (Auto) 47 % (10-50); Mean Corpuscular HGB Conc 31.8 g/dl (31.0-37.0); Mean Corpuscular Hemoglobin 30.6 pg (25.0-35.0); Mean Corpuscular Volume 96 fL (80-100); Monocytes # (Auto) 0.3 Thou/mm3 (0.0-0.8); Monocytes % (Auto) 19 % (0-12); Neutrophils # (Auto) 0.5 Thou/mm3 (1.8-7.7); Neutrophils % (Auto) 30 % (37-80); Nucleated Red Blood Cell # 0.00 Thou/mm3 (0.00-0.00); Nucleated Red Blood Cell % 0 /100 WBC (0); Platelet Count 124 Thou/mm3 (140-440); RDW Standard Deviation 96.2 fL (35.1-43.9); Red Blood Count 2.52 Miln/mm3 (4.50-5.90); White Blood Count 1.7 Thou/mm3 (3.8-10.6)
[2025-04-19 09:40] LABS: Hemoglobin 7.7 g/dL (13.5-16.0)
[2025-04-19 09:51] LABS: Alanine Aminotransferase 14 U/L (10-49); Albumin, Serum 3.7 gm/dL (3.4-4.8); Albumin/Globulin Ratio 1.0 (1.2-2.2); Alkaline Phosphatase 104 U/L (46-116); Anion Gap 7 (7-16); Aspartate Amino Transferase 23 U/L (0-34); BUN/Creatinine Ratio 18 Ratio (12-20); Bilirubin,Total 0.6 mg/dL (0.3-1.2); Blood Urea Nitrogen 27 mg/dL (9-23); Calcium 8.9 mg/dL (8.3-10.6); Calcium (Corrected) 9.1 mg/dL (8.5-10.1); Carbon Dioxide 24.3 mMol/L (20.0-31.0); Chloride 108 mMol/L (98-107); Creatinine (Component) 1.5 mg/dL (0.6-1.3); Globulin 3.6 gm/dL (2.3-3.5); Glucose 126 mg/dL (74-106); Osmolality,Calculated 284 (275-295); Potassium 4.8 mMol/L (3.4-5.1); Sodium 139 mMol/L (136-145); Total Protein 7.3 gm/dL (5.7-8.2); eGFR 46 See Note
[2025-04-29 09:21] LABS: Basophils # (Auto) 0.0 Thou/mm3 (0.0-0.2); Basophils % (Auto) 2 % (0-2.5); Eosinophils # (Auto) 0.0 Thou/mm3 (0.0-0.5); Eosinophils % (Auto) 1 % (0-10); Hematocrit 23.3 % (41.0-53.0); Immature Granulocytes Auto 0.00 Thou/mm3 (0.00-0.00); Lymphocytes # (Auto) 0.5 Thou/mm3 (1.0-4.8); Lymphocytes % (Auto) 47 % (10-50); Mean Corpuscular HGB Conc 32.2 g/dl (31.0-37.0); Mean Corpuscular Hemoglobin 30.1 pg (25.0-35.0); Mean Corpuscular Volume 94 fL (80-100); Monocytes # (Auto) 0.4 Thou/mm3 (0.0-0.8); Monocytes % (Auto) 33 % (0-12); Neutrophils # (Auto) 0.2 Thou/mm3 (1.8-7.7); Neutrophils % (Auto) 18 % (37-80); Nucleated Red Blood Cell # 0.00 Thou/mm3 (0.00-0.00); Nucleated Red Blood Cell % 0 /100 WBC (0); Platelet Count 93 Thou/mm3 (140-440); RDW Standard Deviation 87.3 fL (35.1-43.9); Red Blood Count 2.49 Miln/mm3 (4.50-5.90)
[2025-04-29 09:38] LABS: Hemoglobin 7.5 g/dL (13.5-16.0); White Blood Count 1.1 Thou/mm3 (3.8-10.6)
== END 2025-05-09 23:59 | disposition home or self-care (01) ==
LOC: SCTC 10:37
PROVIDERS: PCP Internal Medicine; Referring Provider Internal Medicine; Visit Provider Internal Medicine Hematology & Oncology
DX: D75.81 Myelofibrosis (principal)
CPT/HCPCS: 36415; 36430; 80053; 81219; 81270; 81279; 81339; 85025; 86850; 86900; 86901; 86923; 96372; J1642; J7040; P9016; Q5101

== ENCOUNTER → 2025-05-13 | Outpatient (CLI) | payer MEDICARE, SELFPAY ==
--- NOTE | 2025-05-13 09:30 | XR_ITS ---
Examination: Abdomen sonogram, complete Date and time of exam: May 13, 2025, 0924 hours INDICATIONS: Diagnosis myelofibrosis. Technique: Multiple real-time grayscale transabdominal sonographic images of the abdomen have been obtained. Findings: Normal gallbladder Normal common bile duct 0.3 cm Pancreatic head 1.9 cm Aorta not enlarged. Liver 11.5 cm fatty infiltration irregular contour no focal liver lesions Normal hepatopetal portal venous flow Patent IVC Right kidney 8.3 cm renal cortex 1.7 cm 11 mm lower pole cyst Left kidney 9.6 cm renal cortex 1.0 cm Moderate renal scar formation Spleen 8.7 cm IMPRESSION: Normal gallbladder Negative for hepatosplenomegaly Primary hepatocellular disease no focal liver lesions
== END | disposition home or self-care (01) ==
PROVIDERS: PCP Internal Medicine Hematology & Oncology; Referring Provider Internal Medicine Hematology & Oncology; Visit Provider Internal Medicine Hematology & Oncology
DX: K76.9 Liver disease, unspecified (principal)
CPT/HCPCS: 76700

== ENCOUNTER 2025-05-28 06:05 | Emergency (ER) | payer MEDICARE, SELFPAY ==
[2025-05-28 06:06] VITALS: BMI 19.5
[2025-05-28 06:18] VITALS: BP 141/66; PULSE 89; RESP 18; TEMP 36.9; O2SAT 92
--- NOTE | 2025-05-28 06:49 | XR_ITS ---
EXAMINATION: PA chest single view TECHNIQUE: Upright PA chest single view Date and time: May 28, 2025, 0756 hours, comparison March 11, 2025 INDICATIONS: Shortness of breath chest pain today. FINDINGS: COPD with hyperexpansion Extensive parenchymal scarring No diego lobar pneumonia no pulmonary edema Right internal jugular Port-A-Cath tip satisfactory position Normal heart size IMPRESSION: COPD with extensive parenchymal scarring
--- NOTE | 2025-05-28 06:50 | XR_ITS ---
Examination: Hand, left 2 views Technique: AP lateral left hand 2 views Date and time: May 28, 2025, 0759 hours INDICATIONS: Left hand swelling and pain today. FINDINGS: Significant osteopenia Mild soft tissue swelling dorsum of the hand No fracture No cortical bone destruction No foreign body IMPRESSION: No fracture or cortical bone destruction
--- NOTE | 2025-05-28 07:00 | PD.EDRME ---
Rapid Medical Screening Exam E Arrival date/time: 05/28/25 06:05 This is an 84-year-old male that comes into the emergency room with complaints of shortness of breath. Patient states that he had a upper respiratory infection over the past few days and he feels like he is getting worse. Patient is scared that he is getting pneumonia. Patient reports that Myelofibrosis and he states that he sometimes requires blood transfusions. Patient reports runny nose and cough. Patient denies fever and chills. Patient has a history of CAD status post stentS, patient also has a history of hepatitis C and has had GI bleeds in the past. Patient also has a history of COPD and chronic kidney disease. I have greeted and performed a focused initial assessment of this patient. Initial appropriate labs ordered at this time. A comprehensive ED assessment and evaluation of the patient and analysis of all test and completion of medical decision making process will be conducted by additional ED provider. Chief Complaint: Shortness of Breath/Dyspnea Time Seen by Provider: 05/28/25 06:42 Vital signs: Vital Signs Temperature 98.5 F 05/28/25 06:18 Pulse Rate 89 05/28/25 06:18 Respiratory Rate 18 05/28/25 06:18 Blood Pressure 141/66 H 05/28/25 06:18 Pulse Oximetry (%) 92 L 05/28/25 06:18 Oxygen Delivery Method Room Air 05/28/25 06:18 Exam: Awake alert, breathing even and unlabored, skin warm and dry. Patient has erythema and swelling to his left hand. Clinical Impression: Shortness of breath
[2025-05-28 07:19] LABS: Basophils # (Auto) 0.0 Thou/mm3 (0.0-0.2); Basophils % (Auto) 0 % (0-2.5); Eosinophils # (Auto) 0.0 Thou/mm3 (0.0-0.5); Eosinophils % (Auto) 0 % (0-10); Hematocrit 28.3 % (41.0-53.0); Hemoglobin 9.2 g/dL (13.5-16.0); Immature Granulocytes Auto 0.36 Thou/mm3 (0.00-0.00); Lymphocytes # (Auto) 1.0 Thou/mm3 (1.0-4.8); Lymphocytes % (Auto) 6 % (10-50); Mean Corpuscular HGB Conc 32.5 g/dl (31.0-37.0); Mean Corpuscular Hemoglobin 30.6 pg (25.0-35.0); Mean Corpuscular Volume 94 fL (80-100); Monocytes # (Auto) 1.9 Thou/mm3 (0.0-0.8); Monocytes % (Auto) 11 % (0-12); Neutrophils # (Auto) 13.0 Thou/mm3 (1.8-7.7); Neutrophils % (Auto) 80 % (37-80); Nucleated Red Blood Cell # 0.00 Thou/mm3 (0.00-0.00); Nucleated Red Blood Cell % 0 /100 WBC (0); Platelet Count 186 Thou/mm3 (140-440); RDW Standard Deviation 83.5 fL (35.1-43.9); Red Blood Count 3.01 Miln/mm3 (4.50-5.90); White Blood Count 16.3 Thou/mm3 (3.8-10.6)
[2025-05-28 08:00] LABS: Alanine Aminotransferase 26 U/L (10-49); Albumin, Serum 4.4 gm/dL (3.4-4.8); Albumin/Globulin Ratio 0.9 (1.2-2.2); Alkaline Phosphatase 200 U/L (46-116); Anion Gap 11 (7-16); Aspartate Amino Transferase 31 U/L (0-34); BUN/Creatinine Ratio 19 Ratio (12-20); Bilirubin,Total 1.5 mg/dL (0.3-1.2); Blood Urea Nitrogen 32 mg/dL (9-23); C-Reactive Protein 12.0 mg/dL (0.0-0.9); Calcium 9.5 mg/dL (8.3-10.6); Calcium (Corrected) 9.5 mg/dL (8.5-10.1); Carbon Dioxide 19.5 mMol/L (20.0-31.0); Chloride 110 mMol/L (98-107); Creatinine (Component) 1.7 mg/dL (0.6-1.3); Estimated Creatinine Clearance 29.9 mL/min (>60); Globulin 5.0 gm/dL (2.3-3.5); Glucose 92 mg/dL (74-106); Osmolality,Calculated 286 (275-295); Potassium 5.7 mMol/L (3.4-5.1); Sodium 140 mMol/L (136-145); Total Protein 9.4 gm/dL (5.7-8.2); Troponin I < 0.020 ng/mL (0.0-0.045); eGFR 39 See Note
[2025-05-28 08:01] LABS: B-Type Natriuretic Peptide 480 pg/mL (0-100)
[2025-05-28 08:39] LABS: INR 1.2 (0.9-1.3); Prothrombin Time 12.3 Seconds (9.0-12.2)
--- NOTE | 2025-05-28 09:55 | PD.EDSOB ---
ED SOB =RME/HPI General Chief Complaint: Shortness of Breath/Dyspnea Stated Complaint: SOB, I MIGHT HAVE PNA, HEMOGLOBIN LOW, HAND SWELL Time Seen by Provider: 05/28/25 06:42 Arrival date/time: 05/28/25 06:05 RME / HPI RME / HPI Narrative: 05/28/25 06:05 This is an 84-year-old male that comes into the emergency room with complaints of shortness of breath. Patient states that he had a upper respiratory infection over the past few days and he feels like he is getting worse. Patient is scared that he is getting pneumonia. Patient reports that Myelofibrosis and he states that he sometimes requires blood transfusions. Patient reports runny nose and cough. Patient denies fever and chills. Patient has a history of CAD status post stentS, patient also has a history of hepatitis C and has had GI bleeds in the past. Patient also has a history of COPD and chronic kidney disease. I have greeted and performed a focused initial assessment of this patient. Initial appropriate labs ordered at this time. A comprehensive ED assessment and evaluation of the patient and analysis of all test and completion of medical decision making process will be conducted by additional ED provider. DR. 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 Reports the cough began 6 days ago and the shortness of breath he has at baseline. However, feels the shortness of breath is worse today (more so with exertion) adding I think I might have pneumonia . Patient additionally reports left hand redness and swelling beginning 3 days ago that has gradually worsened. No other associated symptoms reported. Denies fevers, chills, sweats, sore throat, nausea, vomiting, diarrhea. Denies any sick contacts. Exam: Awake alert, breathing even and unlabored, skin warm and dry. Patient has erythema and swelling to his left hand. Impression: Shortness of breath Related Data Home Medications ?Medication ?Instructions ?Recorded ?Confirmed pantoprazole 40 mg tablet,delayed 40 mg PO QDAY 02/07/21 03/08/25 release gabapentin 400 mg capsule 400 cap PO QID 11/10/21 03/08/25 carvedilol 3.125 mg tablet 3.125 mg PO BID 03/01/25 03/08/25 Previous Rx's ?Medication ?Instructions ?Recorded sulfamethoxazole 800 1 tab PO BID 7 days #14 tabs 05/28/25 mg-trimethoprim 160 mg tablet (Bactrim DS) Allergies Allergy/AdvReac Type Severity Reaction Status Date / Time No Known Allergies Allergy Verified 05/28/25 06:06 Review of Systems Review of Systems Systems Reviewed: All systems reviewed, normal except as documented ED Exam Narrative Physical exam: Constitutional: Awake, alert, pale, chronically ill appearing HEENT: Normocephalic, atraumatic, extraocular movements intact. Neck: Supple CV: Regular rate and rhythm, no murmurs/rubs/gallops Lungs: Diminished breath sounds right base, no wheezing, no respiratory distress. Abd: Soft, NT, ND, no HSM noted to palpation Extremities: No deformities, no edema noted, left hand is swollen with erythema extending up a couple of inches proximal to wrist, hot and tender to touch, no crepitus Neuro: AAOx3, CN 2-12 GIBL, no acute neuro deficit noted. Skin: Pale, abnormalities as above Course Course Course Narrative: Patient remains clinically stable throughout the emergency department visit. We reviewed all the results, analysis, and treatment plans. Patient is amenable to discharge. Strict return precautions were outlined. Quality Measures none Orders Category Date Time Status EKG (ED ONLY) *Do not use* NOW Care 05/28/25 06:50 Completed EKG (ED Only) Stat Exams 05/28/25 06:49 Ordered XR chest 1V Stat Exams 05/28/25 06:49 Completed XR hand LT 2V Stat Exams 05/28/25 06:50 Completed BNP [B-Type Natriuretic Peptide] Stat Lab 05/28/25 07:02 Completed CBC Stat Lab 05/28/25 07:02 Completed CRP [C-Reactive Protein] Stat Lab 05/28/25 07:02 Completed Comprehensive Metabolic Panel Stat Lab 05/28/25 07:02 Completed PT [Prothrombin Time with INR] Stat Lab 05/28/25 07:02 Completed Procalcitonin Stat Lab 05/28/25 07:02 Completed Troponin I Stat Lab 05/28/25 07:02 Completed Type and Screen Stat Lab 05/28/25 07:36 Completed Trimethoprim/Sulfa 160/800 Ds [Bactrim Ds] Med 05/28/25 12:03 Discontinued 1 tab PO X1 ONE Vital Signs Vital signs: Vital Signs Temperature 98.5 F 05/28/25 06:18 Pulse Rate 89 05/28/25 06:18 Respiratory Rate 18 05/28/25 06:18 Blood Pressure 141/66 H 05/28/25 06:18 Pulse Oximetry (%) 92 L 05/28/25 06:18 Oxygen Delivery Method Room Air 05/28/25 06:18 Pulse ox is 92% on room air which is low. Shortness of Breath / Dyspnea MDM Narrative MDM Narrative:: Alexandria Boone am scribing for and in the presence of Dr. Orantes. 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 transfusions How is presenting disease/condition affected by chronic disease/condition?: exacerbated by Evaluation data The following diagnostics were reviewed and interpreted by me:: lab results and radiology exam(s) Lab and/or radiology exams considered but not ordered:: None Interpretation Summary: Ordering Physician: Amber Amaya NP Date of Service: 05/28/25 Procedure(s): XR chest 1V Accession Number(s): [id number] cc: Christophe Royal; Chidi Vick MD; Amber Amaya NP~ EXAMINATION: PA chest single view TECHNIQUE: Upright PA chest single view Date and time: May 28, 2025, 0756 hours, comparison March 11, 2025 INDICATIONS: Shortness of breath chest pain today. FINDINGS: COPD with hyperexpansion Extensive parenchymal scarring No diego lobar pneumonia no pulmonary edema Right internal jugular Port-A-Cath tip satisfactory position Normal heart size IMPRESSION: COPD with extensive parenchymal scarring Dictated By: Chidi Vick MD Signed By: <Electronically signed by Chidi Vick MD in [place]> 05/28/25 0833 Ordering Physician: Amber Amaya NP Date of Service: 05/28/25 Procedure(s): XR hand LT 2V Accession Number(s): [id number] cc: Christophe Royal; Chidi Vick MD; Amber Amaya NP~ Examination: Hand, left 2 views Technique: AP lateral left hand 2 views Date and time: May 28, 2025, 0759 hours INDICATIONS: Left hand swelling and pain today. FINDINGS: Significant osteopenia Mild soft tissue swelling dorsum of the hand No fracture No cortical bone destruction No foreign body IMPRESSION: No fracture or cortical bone destruction Dictated By: Chidi Vick MD Signed By: <Electronically signed by Chidi Vick MD in [place]> 05/28/25 0836 Medications / Prescriptions Medications or Prescriptions considered but not ordered:: None Medication administrations:: Medication Administration History Discontinued Medications Trimethoprim/Sulfamethoxazole (Trimethoprim/Sulfa 160/800 Ds Tablet) 1 tab PO X1 ONE Stop: 05/28/25 12:04 Last Admin: 05/28/25 12:49 Dose: 1 tab Documented By: MF See above Consultations Consultation(s) initiated? (list below): No Diagnosis Shortness of Breath Differential Diagnosis: acute exacerbation of chronic obstructive airways disease, congestive heart failure, community acquired pneumonia and asthma with exacerbation Most likely diagnosis given after review of the tests above:: Cellulitis left hand URI Admission Indicated Admission indicated?: not indicated Explain why admission is indicated or not indicated:: With no condition needing emergent intervention, there was no indication for admission. Admission Request Was there a request for admission?: No Disposition Plan Disposition Plan: Discharge Discharge Attestation Discharge Attestation: The patient and all family members were given an opportunity to ask questions and understood the discharge instructions. Discharge instructions specifically effects, indications for sooner follow up or return to the emergency department, and the expected course of current diagnosis. Patient condition: Stable Discharge Plan Plan Patient Disposition: HOME (Self Care) Patient condition on transfer: Stable Prescriptions/Referrals Prescriptions/Med Rec: New sulfamethoxazole-trimethoprim [Bactrim DS] 800-160 mg tablet 1 tab PO BID 7 Days Qty: 14 0RF No Action pantoprazole 40 mg Tablet,Delayed Release (Dr/Ec) 40 mg PO QDAY gabapentin 400 mg capsule 400 cap PO QID Patient Comments: TAKE 1 CAPSULE BY MOUTH 4 TIMES DAILY carvedilol 3.125 mg tablet 3.125 mg PO BID Patient Comments: TAKE 1 TABLET BY MOUTH TWICE DAILY WITH FOOD Referrals: Christophe Royal [Primary Care Provider] - In 1 week Problem List Clinical Impression: Cellulitis of hand, Upper respiratory infection Patient/Caregiver Discharge Instructions Education Materials: Discharge Instructions for Cellulitis, ED URI, Viral, No Abx (Adult) Additional Instructions: Some general health principles that can help you are the [employer] [place] principles: Nutrition (eat a plant-based diet, avoiding meats in general, avoiding highly processed foods) Exercise (Daily exercise/walks as tolerated) Water (Drink adequate fresh water to maintain hydration, concentrating on water rather than on soda, coffee, tea, juice, etc for hydration) [place] (Spend time - 15-20 minutes or so with skin exposed in the manager merchandise and late evening sun for Vitamin D health benefits) [place] (Avoid alcohol, illicit drugs, caffeinated beverages, smoking, etc) Air (Deep breathing exercises in the early mornings in fresh air) Rest (Adequate rest at night, going to bed a few hours before midnight and avoiding all screens/television/loud music in the time right before going to bed, also avoiding heavy meals just prior to going to bed) Trust in God (Spend time daily in Bible study and prayer - health benefits in contemplation of God's true character) Additional resources that can benefit: www.[employer], look under resources and seminars. Another good website is www.[facility].org Print Language: Citizen [place] Stand Alone Forms: Rani Award Info., Patient Portal Info Letter
[2025-05-28 10:11] LABS: Procalcitonin 0.26 ng/ml (0.0-0.49)
[2025-05-28 12:45] VITALS: BP 153/79; PULSE 93; RESP 14; TEMP 37.4; O2SAT 92
[2025-05-28] MEDS: TRIMETHOPRIM/SULFA 160/800 DS TABLET 1 TAB PO (12:49)
[2025-05-28 13:19] VITALS: PULSE 82; RESP 14; TEMP 37.4; O2SAT 93
== END 2025-05-28 13:20 | disposition home or self-care (01) ==
PROVIDERS: Nurse Practitioner Family; Emergency Provider Family Medicine; PCP Internal Medicine
DX: J06.9 Acute upper respiratory infection, unspecified (principal); L03.114 Cellulitis of left upper limb; J44.9 Chronic obstructive pulmonary disease, unspecified; J98.4 Other disorders of lung; R94.31 Abnormal electrocardiogram [ECG] [EKG]
CPT/HCPCS: 36415; 71045; 73120; 80053; 81001; 83880; 84145; 84484; 85025; 85610; 86140; 86850; 86900; 86901; 93005; 99283; A9270